=== PATIENT | female | born 1965 | race Caucasian/White ===

== ENCOUNTER 2018-05-05 16:22 | Inpatient (IN) | payer BC ==
--- NOTE | 2018-05-05 16:29 | PDOC ---
History of Present Illness - General Chief Complaint: Respiratory Stated Complaint: SENT BY PMD FOR ADMISSION DIFF BREATHING - History of Present Illness Initial Comments: 05/05/18 17:09 52 years old no significant past medical history presents emergency Department with one week history of progressively worsening dyspnea and cough No travel no sick contacts no fever no chills cough is progressively worsening from last week until this week over the weekend began to develop dyspnea with exertion. Head CT her doctor had blood work and an x-ray done EKG with no acute abnormal findings symptoms progressively worsened over the weekend and this week saw lens polisher Dr. Castorena CT chest was done which demonstrated pneumonitis Only new factor in patient's life was recent addition of tumor to her diet for anti-inflammatory relief of her arthritis. It is thought at this point that her pneumonitis secondary to an ALLERGIC reaction to the tumor arcus patient has multiple other known ALLERGIES Symptoms are moderate persistent constant exacerbated by exertion alleviated by rest. Past History - Past Medical History Allergies/Adverse Reactions: Allergies Allergy/AdvReac Type Severity Reaction Status Date / Time amoxicillin [From Augmentin] Allergy Intermediate Nausea Verified 05/05/18 16:26 clavulanic acid Allergy Intermediate Nausea Verified 05/05/18 16:26 [From Augmentin] turmeric Allergy Intermediate Difficulty Verified 05/05/18 16:25 Breathing azithromycin [From Zithromax] Allergy Mild Rash Verified 05/05/18 16:26 cefixime [From Suprax] Allergy Mild Rash Verified 05/05/18 16:27 Home Medications: Ambulatory Orders Prednisone [Deltasone] 60 mg PO DAILY 05/05/18 Sertraline HCl [Zoloft] 25 mg PO HS 05/05/18 Sertraline HCl [Zoloft] 100 mg PO HS 05/05/18 Heart Score/ECG Review - ECG Impressions Comment:: 05/05/18 18:12 EKG performed at 1642 demonstrates normal sinus rhythm no ST elevations or T- wave inversions normal axis Interpreted by me. ED Treatment Course - LABORATORY CBC & Chemistry Diagram: 05/05/18 17:07 05/05/18 17:07 Medical Decision Making - Medical Decision Making 05/05/18 18:13 Patient presents to the ED with likely ALLERGIC pneumonitis secondary to recent Tumeric use CAT scan as an outpatient demonstrated ground glass patchy opacities. Patient was placed on prednisone as an outpatient with no significant improvement and sent to the ED for admission for further evaluation blood cultures antigen testing and IV steroids Here in the emergency department placed on O2, received 40 mg IV Solu-Medrol IV fluids as well as 1 DuoNeb and subjectively reports feeling some much better however given that she was satting 88% upon arrival we will admit to medicine for further management and workup *DC/Admit/Observation/Transfer Diagnosis at time of Disposition: Pneumonitis - Discharge Dispostion Condition at time of disposition: Stable Decision to Admit order: Yes - Referrals - Patient Instructions - Post Discharge Activity
[2018-05-05] MEDS ORDERED: SODIUM CHLORIDE 0.9% 1000 ML INFUS.BAG IV ONE (16:34)
[2018-05-05] MEDS ORDERED: methylPREDNISolone NA SUCC 125 MG/2 ML VIAL IVPB ONE (16:36)
[2018-05-05] MEDS ORDERED: ALBUTEROL SO4 2.5/IPRATROPIUM 0.5 INH SOL 3 ML VIAL.NEB. NEB ONE ×2 (16:58→17:20)
[2018-05-05] MEDS ORDERED: methylPREDNISolone NA SUCC 40 MG/1 ML VIAL ONE (17:20)
[2018-05-05 17:23] LABS: HEMATOCRIT 40.4 % (32.4-45.2); HEMOGLOBIN 13.6 GM/dl (10.7-15.3); MCH 31.1 pg (25.7-33.7); MCHC 33.6 g/dl (32.0-36.0); MEAN CELL VOLUME 92.5 fl (80-96); MEAN PLT VOLUME 8.2 fl (7.5-11.1); PLATELET COUNT 339 K/MM3 (134-434); RBC 4.36 M/mm3 (3.60-5.2); RDW 12.9 % (11.6-15.6); WHITE BLOOD COUNT 10.5 K/mm3 (4.0-10.8)
[2018-05-05 17:38] LABS: ALBUMIN 2.8 g/dl (3.5-5.0); ALK PHOS 64 U/L (32-92); ANION GAP 9 MMOL/L (8-16); BILIRUBIN,TOTAL 0.6 mg/dl (0.2-1.0); BLOOD UREA NITROGEN 19 mg/dl (7-18); CALCIUM 8.5 mg/dl (8.4-10.2); CHLORIDE 103 mmol/L (98-107); CO2 21 mmol/L (22-28); CREATININE 0.7 mg/dl (0.6-1.3); GLUCOSE,RANDOM 116 mg/dl (74-106); SGOT/AST 30 U/L (10-42); SGPT/ALT 30 U/L (10-40); SODIUM 133 mmol/L (136-145); TOT PROT 7.2 g/dl (6.4-8.3)
[2018-05-05 17:39] LABS: URINE APPEARANCE Clear; URINE BILIRUBIN Negative (NEGATIVE); URINE COLOR Yellow; URINE GLUCOSE (UA) Negative (NEGATIVE); URINE KETONE Negative (NEGATIVE); URINE LEUK ESTERASE Negative (NEGATIVE); URINE NITRITE Negative (NEGATIVE); URINE PROTEIN Negative (NEGATIVE); URINE UROBILINOGEN 0.2 (0.2-1.0)
--- NOTE | 2018-05-05 17:53 | HP ---
Admitting History and Physical - Admission Chief Complaint: sob/cough History of Present Illness: 52 WHITE FEMALE WITH 2 WEEKS H/O SOB/COUGH VISITED HER PRIMARY CARE WAS EVALUATED WITH AN EKG AND BLOOD TEST AND WAS TOLD ALL WAS NORMAL. SHE SELF REFERRED TO MY OFFICE WHEN SOB AND CHEST HEAVINESS WORSENED. SHE WAS NOTED TO HAVE A SPO2 OF 93% ON ROOM AIR AND AN ABNORMAL CXR WHICH PROMPTED A CT CHEST WHICH SHOWED B/L GGO AND MID TO LOWER LOBE INFILTRATES. AN ECHO DONE AT THAT TIME WAS NORMAL. SHE WAS STARTED ON ORAL PREDNISONE AND SUSEQUENTLY DEVELOPED FEVER WHERE UPON SHE WAS ADVISED ADMISSION TO [facility] FOR FURTHER TREATMENT AND WORKUP. IT IS FELT THAT SHE HAS AN ORGANIZING PNEUMONIA LIKELY DUE TO A VIRAL ILLNES. OF NOTE IS THAT SHE STARTED TUMERIC 5 DAYS PRIOR TO THIS EPISODE A SUPPLEMENT. 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 No: COPD, O2 Dependent, Pneumonia Gastrointestinal: No: Ascites Hepatobiliary: No: Cirrhosis Renal/: No: Renal Failure Reproductive: Yes: Postmenopausal ...: No Heme/Onc: No: Anemia Infectious Disease: No: AIDS Psych: Yes: Depression. No: Addictions Musculoskeletal: No: Bursitis Rheumatology: No: Fibromyalgia - Past Surgical History Past Surgical History: Yes: None - Smoking History Smoking history: Never smoked Have you smoked in the past 12 months: No - Alcohol/Substance Use Hx Alcohol Use: Yes (SOCIAL) History of Substance Use: reports: None - Social History Usual Living Arrangement: Yes: With Spouse ADL: Independent History of Recent Travel: No Home Medications - Allergies Allergies/Adverse Reactions: Allergies Allergy/AdvReac Type Severity Reaction Status Date / Time amoxicillin [From Augmentin] Allergy Intermediate Nausea Verified 05/05/18 16:26 clavulanic acid Allergy Intermediate Nausea Verified 05/05/18 16:26 [From Augmentin] turmeric Allergy Intermediate Difficulty Verified 05/05/18 16:25 Breathing azithromycin [From Zithromax] Allergy Mild Rash Verified 05/05/18 16:26 cefixime [From Suprax] Allergy Mild Rash Verified 05/05/18 16:27 - Home Medications Home Medications: Ambulatory Orders Prednisone [Deltasone] 60 mg PO DAILY 05/05/18 Sertraline HCl [Zoloft] 25 mg PO HS 05/05/18 Sertraline HCl [Zoloft] 100 mg PO HS 05/05/18 Family Disease History - Family Disease History Family History: Unremarkable Review of Systems - Review of Systems Constitutional: reports: Chills, Fever, Lethargy, Loss of Appetite, Night Sweats , Weakness Eyes: denies: Blurred Vision HENT: denies: Difficult Swallowing Neck: denies: Decreased ROM Cardiovascular: reports: Shortness of Breath. denies: Palpitations Respiratory: reports: Cough, Exercise Intolerance, SOB, SOB on Exertion, Wheezing. denies: Hemoptysis Gastrointestinal: denies: Abdominal Pain Genitourinary: reports: No Symptoms Breasts: reports: No Symptoms Reported Musculoskeletal: reports: No Symptoms Integumentary: reports: No Symptoms Neurological: reports: No Symptoms Endocrine: reports: No Symptoms Hematology/Lymphatic: reports: No Symptoms Psychiatric: reports: No Symptoms Physical Examination Vital Signs: Vital Signs Temperature 99.8 F H 05/05/18 16:25 Pulse Rate 94 H 05/05/18 17:18 Respiratory Rate 20 05/05/18 16:25 Blood Pressure 107/63 05/05/18 16:25 O2 Sat by Pulse Oximetry (%) 99 05/05/18 17:33 Constitutional: Yes: Anxious Eyes: Yes: EOM Intact HENT: Yes: Normocephalic Neck: Yes: Trachea Midline Cardiovascular: Yes: Regular Rate and Rhythm, S1, S2 Respiratory: Yes: Rales (bibasilar) Gastrointestinal: Yes: Normal Bowel Sounds, Abdomen, Obese ...Rectal Exam: Yes: Deferred Renal/: Yes: WNL Musculoskeletal: Yes: WNL Extremities: Yes: WNL Edema: No Integumentary: Yes: WNL Neurological: Yes: Alert ...Motor Strength: WNL Psychiatric: Yes: WNL Labs: CBC, BMP 05/05/18 17:07 05/05/18 17:07 rest of labs pending Imaging - Results Chest X-ray: Report Reviewed, Image Reviewed Cat Scan: Report Reviewed, Image Reviewed Problem List - Problems (1) Pneumonitis Code(s): J18.9 - PNEUMONIA, UNSPECIFIED ORGANISM (2) Sleep apnea Code(s): G47.30 - SLEEP APNEA, UNSPECIFIED (3) Fever Code(s): R50.9 - FEVER, UNSPECIFIED (4) Hypoxemia Code(s): R09.02 - HYPOXEMIA Assessment/Plan WILL TREAT FOR PRESUMPTIVE CRYPTOGENIC ORGANIZING PNEUMONIA WITH AN UNKNOWN ETIOLOGY. STEROIDS O2 SUPPLEMENTATION NIPPV FOR OSAS (PATIENT HAS HER OWN CPAP) BRONCHODILATORS ID CONSULT. Lamar KIDD
[2018-05-05] MEDS ORDERED: ACETAMINOPHEN 325 MG TABLET (FP) PO PRN (18:09)
[2018-05-05] MEDS ORDERED: methylPREDNISolone NA SUCC 40 MG/1 ML VIAL IVPUSH SCH (18:15)
[2018-05-05 18:42] VITALS: BMI 36.8
[2018-05-05] MEDS: PANTOPRAZOLE 40 MG TABLET (FP) PO SCH (18:42)
[2018-05-05 18:52] LABS: PLATELET ESTIMATE ADEQUATE
[2018-05-05] MEDS: methylPREDNISolone NA SUCC 40 MG/1 ML VIAL IVPUSH SCH (19:24)
[2018-05-05] MEDS: ALBUTEROL SO4 0.083% IH SOL 2.5 MG/3 ML VIAL.NEB. NEB SCH (20:01)
[2018-05-06] MEDS: methylPREDNISolone NA SUCC 40 MG/1 ML VIAL IVPUSH SCH ×4 (02:25→20:53)
[2018-05-06] MEDS: ALBUTEROL SO4 0.083% IH SOL 2.5 MG/3 ML VIAL.NEB. NEB SCH ×4 (08:00→20:53)
--- NOTE | 2018-05-06 09:09 | PN ---
Progress Note (short form) - Note Progress Note: PULMONARY VSS/DIAPHORETIC OVER NIGHT ANICTERIC BIBASILAR INSP CRACKLE R>L S1S2 BS+ NO EDEMA LABS/MEDS/NOTES/IMAGES/MICRO(PENDING) REVIEWED IMP CRYPTOGENIC ORGANIZING PNEUMONITIS (FORMERLY BOOP) MOST LIKELY ETIOLOGY ? OSAS ON NIVPPV BRONCHIAL ASTHMA PLAN: CONTINUE IV STEROIDS SAME DOSE GI PROPHYLAXSIS NIPPV HS O2 SUPPLEMENTATION/BRONCHODILATORS PT IS AMBULATORY/ CHECK MICRO PENDING ID EVAL FOR SECOND OPINION WILL HAVE REPEAT IMAGING STUDY PRIOR TO DISCHARGE Lamar ASHLEY MD Problem List - Problems (1) Pneumonitis Code(s): J18.9 - PNEUMONIA, UNSPECIFIED ORGANISM (2) Sleep apnea Code(s): G47.30 - SLEEP APNEA, UNSPECIFIED (3) Fever Code(s): R50.9 - FEVER, UNSPECIFIED (4) Hypoxemia Code(s): R09.02 - HYPOXEMIA
--- NOTE | 2018-05-06 10:05 | PN ---
Progress Note (short form) - Note Progress Note: ID Consult dictated Community acq V. atypical pneumonia ? Viral pneumonitis ? Hypersensitivity pneumonitis Await c/s, legionella ag Empiric levaquin
--- NOTE | 2018-05-06 10:19 | EKG ---
Test Reason : Blood Pressure : / mmHG Vent. Rate : 089 BPM Atrial Rate : 089 BPM P-R Int : 116 ms QRS Dur : 080 ms QT Int : 372 ms P-R-T Axes : 051 074 068 degrees QTc Int : 452 ms NORMAL SINUS RHYTHM NORMAL ECG NO PREVIOUS ECGS AVAILABLE Confirmed by LORENA MILLER MD ([id number]) on 05/06/2018 10:18:37 AM Referred By: DR VANG Confirmed By:LORENA MILLER MD
[2018-05-06] MEDS: PANTOPRAZOLE 40 MG TABLET (FP) PO SCH (10:26)
[2018-05-06] MEDS ORDERED: PT OWN MED DRAWER 7, Y5N ONE (10:57)
--- NOTE | 2018-05-06 14:44 | CONS ---
DATE OF CONSULTATION: DATE OF DICTATION: 05/06/2018 HISTORY OF PRESENT ILLNESS: The patient is a 52-year-old previously healthy evaluated for pneumonitis. The patient was well until approximately 5 or 6 days ago. She had been taking turmeric for arthritis symptoms. She reports that 5 days into the course of turmeric, she developed shortness of breath and dry cough. She had consulted a disk operator and was prescribed prednisone. She has been taking prednisone 60 mg for the past 3 days. Despite the prednisone, she continued to have increasing shortness of breath, cough, and chest pressure. She developed subjective fever and was advised to go to the emergency room. In the emergency room, patient was afebrile with a normal white blood cell count. A CT scan was performed and showed diffuse patchy consolidation throughout both lung martinez. Patient complaints of dyspnea and cough. However, she reports improvement on inhaled bronchodilators and intravenous corticosteroids. She lives at home in the community with her significant other. She denies ill contacts. No recent hospitalizations. No recent travel. She was in [place] several months ago. Patient is a nonsmoker. She has pet dogs at home. She did receive influenza vaccine. PAST MEDICAL HISTORY: Noncontributory. ALLERGIES: To multiple medications including AUGMENTIN, TURMERIC, ZITHROMAX, CEFIXIME. SOCIAL HISTORY: As per HPI. SYSTEMS REVIEW: Neurologic: No loss of consciousness, seizure activity, or focal weakness. Cardiac: Negative for chest pain or palpitations. Respiratory: As per HPI. Gastrointestinal: Negative for vomiting or diarrhea. Genitourinary: Negative for urinary tract infection. LABORATORY DATA: White count 10.5, 85 neutrophils, 1 band, 11 lymphocytes, 3 monocytes, hematocrit 40.4, platelets 339. BUN 19, creatinine 0.7. Liver enzymes normal. Influenza swab negative. PHYSICAL EXAMINATION: General: She is awake and alert. She is seated in bed, an obese female. She is not acutely dyspneic at rest. Vital signs: Temperature 98.4, blood pressure 106/54, pulse 77 and regular, respirations 18 per minute. HEENT: Sclerae anicteric. Oropharynx negative. Neck: Supple. Heart: Heart sounds S1, S2. No murmur. Lungs: Crepitations at the bases bilaterally. Abdomen: Obese, soft, nontender. Extremities: Negative for edema. IMPRESSION: 1. Bilateral pneumonitis, rule out community-acquired versus atypical pneumonia. 2. Possible viral pneumonitis. 3. Possible hypersensitivity pneumonitis. Await cultures, obtain urine, legionella, and pneumococcal antigens, HIV testing, empiric antibiotic coverage, community-acquired and atypical lung pathogens with Levaquin 750 mg IV piggyback daily. Continue inhaled bronchodilators and intravenous corticosteroids. Will follow. Thank you for the kind referral. LORENA AREVALO M.D. [id number]
[2018-05-07] MEDS: methylPREDNISolone NA SUCC 40 MG/1 ML VIAL IVPUSH SCH ×4 (03:25→21:10)
[2018-05-07] MEDS: ALBUTEROL SO4 0.083% IH SOL 2.5 MG/3 ML VIAL.NEB. NEB SCH ×4 (08:05→21:10)
[2018-05-07] MEDS: PANTOPRAZOLE 40 MG TABLET (FP) PO SCH (09:28)
--- NOTE | 2018-05-07 14:46 | PN ---
Progress Note (short form) - Note Progress Note: PULMONARY VSS/SUBJECTIVE IMPROVEMENT ANICTERIC BIBASILAR INSP CRACKLE R>L IMPROVED S1S2 BS+ NO EDEMA LABS/MEDS/NOTES/IMAGES/RSV(PENDING) REVIEWED IMP CRYPTOGENIC ORGANIZING PNEUMONITIS (FORMERLY BOOP) MOST LIKELY, ETIOLOGY ? OSAS ON NIVPPV BRONCHIAL ASTHMA PLAN: CONTINUE IV STEROIDS SAME DOSE GI PROPHYLAXSIS NIPPV HS O2 SUPPLEMENTATION/BRONCHODILATORS PT IS AMBULATORY/ CHECK MICRO PENDING ID EVAL FOR SECOND OPINION APPRECIATED WILL HAVE REPEAT IMAGING STUDY PRIOR TO DISCHARGE Lamar ASHLEY MD Problem List - Problems (1) Pneumonitis Code(s): J18.9 - PNEUMONIA, UNSPECIFIED ORGANISM (2) Sleep apnea Code(s): G47.30 - SLEEP APNEA, UNSPECIFIED (3) Fever Code(s): R50.9 - FEVER, UNSPECIFIED (4) Hypoxemia Code(s): R09.02 - HYPOXEMIA
[2018-05-08] MEDS: methylPREDNISolone NA SUCC 40 MG/1 ML VIAL IVPUSH SCH ×4 (02:44→20:57)
[2018-05-08] MEDS: ALBUTEROL SO4 0.083% IH SOL 2.5 MG/3 ML VIAL.NEB. NEB SCH ×4 (07:55→20:57)
[2018-05-08] MEDS: PANTOPRAZOLE 40 MG TABLET (FP) PO SCH (09:52)
--- NOTE | 2018-05-08 11:37 | PN ---
Progress Note (short form) - Note Progress Note: PULMONARY VSS/CONTINUES TO IMPROVE ANICTERIC BIBASILAR INSP CRACKLE R>L IMPROVED S1S2 BS+ NO EDEMA LABS/MEDS/NOTES/IMAGES/RSV(PENDING) REVIEWED IMP CRYPTOGENIC ORGANIZING PNEUMONITIS (FORMERLY BOOP) MOST LIKELY, ETIOLOGY ? OSAS ON NIVPPV BRONCHIAL ASTHMA PLAN: CONTINUE IV STEROIDS SAME DOSE GI PROPHYLAXSIS NIPPV HS O2 SUPPLEMENTATION/BRONCHODILATORS PT IS AMBULATORY/ RSV PENDING ID EVAL FOR SECOND OPINION APPRECIATED WILL HAVE REPEAT IMAGING STUDY IN AM CHECK SPO2 R/A PRE/POST R DION REDDY Problem List - Problems (1) Pneumonitis Code(s): J18.9 - PNEUMONIA, UNSPECIFIED ORGANISM (2) Sleep apnea Code(s): G47.30 - SLEEP APNEA, UNSPECIFIED (3) Fever Code(s): R50.9 - FEVER, UNSPECIFIED (4) Hypoxemia Code(s): R09.02 - HYPOXEMIA
[2018-05-09] MEDS: methylPREDNISolone NA SUCC 40 MG/1 ML VIAL IVPUSH SCH ×3 (03:15→14:15)
[2018-05-09] MEDS: ALBUTEROL SO4 0.083% IH SOL 2.5 MG/3 ML VIAL.NEB. NEB SCH ×2 (08:36→13:00)
--- NOTE | 2018-05-09 08:54 | PN ---
Progress Note, Physician History of Present Illness: Awake, alert Seated in bed Clinically improved Less dyspneic Occasional cough , whitish sputum No c/o chest pain No fever/ chills - Current Medication List Current Medications: Active Medications Acetaminophen (Tylenol -) 650 mg PO ONCE PRN PRN Reason: FEVER Albuterol Sulfate (Ventolin 0.083% Nebulizer Soln -) 1 amp NEB RQID KATERIN Last Admin: 05/09/18 08:36 Dose: 1 amp Levofloxacin (Levaquin 750 Mg Premixed Ivpb -) 750 mg in 150 mls @ 100 mls/hr IVPB DAILY KATERIN; Protocol Last Admin: 05/08/18 09:52 Dose: 100 mls/hr Methylprednisolone Sodium Succinate (Solu-Medrol -) 40 mg IVPUSH Q6H-IV KATERIN Last Admin: 05/09/18 08:36 Dose: 40 mg Pantoprazole Sodium (Protonix -) 40 mg PO DAILY KATERIN Last Admin: 05/08/18 09:52 Dose: 40 mg - Objective Vital Signs: Vital Signs Temperature 98.3 F 05/09/18 06:08 Pulse Rate 95 H 05/09/18 06:08 Respiratory Rate 18 05/09/18 06:08 Blood Pressure 114/59 L 05/09/18 06:08 O2 Sat by Pulse Oximetry (%) 92 L 05/08/18 22:00 Constitutional: Yes: No Distress Eyes: Yes: Conjunctiva Clear Cardiovascular: Yes: Regular Rate and Rhythm, S1, S2 Respiratory: Yes: CTA Bilaterally Gastrointestinal: Yes: Normal Bowel Sounds, Soft, Abdomen, Obese. No: Tenderness Edema: No Labs: CBC, BMP 05/05/18 17:07 05/05/18 17:07 Assessment/Plan Probable viral pneumonitis Clinically improved C/S, legionella/ pneumococcal ag (-) Viral panel pending Switch to po levaquin x 7d Outpatient followup
[2018-05-09] MEDS: PANTOPRAZOLE 40 MG TABLET (FP) PO SCH (09:38)
--- NOTE | 2018-05-09 13:20 | DS ---
Physical Examination Vital Signs: Vital Signs Temperature 97.8 F 05/09/18 09:05 Pulse Rate 97 H 05/09/18 09:05 Respiratory Rate 18 05/09/18 09:05 Blood Pressure 117/55 L 05/09/18 09:05 O2 Sat by Pulse Oximetry (%) 98 05/09/18 12:35 Constitutional: Yes: Calm Eyes: Yes: EOM Intact HENT: Yes: Normocephalic Neck: Yes: Trachea Midline Cardiovascular: Yes: Regular Rate and Rhythm Respiratory: Yes: Rales (right base) Gastrointestinal: Yes: Normal Bowel Sounds ...Rectal Exam: Yes: Deferred Renal/: Yes: WNL Musculoskeletal: Yes: WNL Extremities: Yes: WNL Edema: No Labs: CBC, BMP 05/05/18 17:07 05/05/18 17:07 Discharge Summary Reason For Visit: PNEUMONITIS Current Active Problems Fever (Acute) Hypoxemia (Acute) Pneumonitis (Acute) Sleep apnea (Acute) Condition: Stable - Instructions Disposition: HOME - Home Medications Comprehensive Discharge Medication List: Ambulatory Orders Prednisone [Deltasone] 40 mg PO DAILY 05/05/18 Sertraline HCl [Zoloft] 25 mg PO HS 05/05/18 Sertraline HCl [Zoloft] 100 mg PO HS 05/05/18 nexium 40mg daily levaquin 500mg for 6 days
--- NOTE | 2018-05-09 13:22 | PN ---
Progress Note (short form) - Note Progress Note: PULMONARY VSS/CONTINUES TO IMPROVE ANICTERIC BIBASILAR INSP CRACKLE R>L IMPROVED S1S2 BS+ NO EDEMA LABS/MEDS/NOTES/IMAGES/RSV(PENDING) REVIEWED sp02 92%room air 88% with ambulation IMP CRYPTOGENIC ORGANIZING PNEUMONITIS (FORMERLY BOOP) MOST LIKELY, ETIOLOGY ? OSAS ON NIVPPV BRONCHIAL ASTHMA PLAN: CONTINUE STEROIDS GI PROPHYLAXSIS NIPPV HS O2 SUPPLEMENTATION/BRONCHODILATORS PT IS AMBULATORY/ RSV QNS ID EVAL FOR SECOND OPINION APPRECIATED REPEAT CT CHEST MODEST IMPROVEMENT NEEDS SHORT TERM HOME O2 R DION REDDY Problem List - Problems (1) Pneumonitis Code(s): J18.9 - PNEUMONIA, UNSPECIFIED ORGANISM (2) Sleep apnea Code(s): G47.30 - SLEEP APNEA, UNSPECIFIED (3) Fever Code(s): R50.9 - FEVER, UNSPECIFIED (4) Hypoxemia Code(s): R09.02 - HYPOXEMIA
[2018-05-09 15:19] VITALS: BP 122/59; PULSE 90; TEMP 98.2
== END 2018-05-09 16:37 | disposition home or self-care (01) | DRG 195 ==
LOC: FER 16:22 → FM/S 18:11
PROVIDERS: ADMIT Specialist; ATTEND Specialist
PROC: 3E0F7GC Introduction of Other Therapeutic Substance into Respiratory Tract, Via Natural or Artificial Opening (ICD-10-PCS; principal; 2018-05-05)
DX: J18.9 Pneumonia, unspecified organism (principal); T50.995A Adverse effect of other drugs, medicaments and biological substances, initial encounter; R09.02 Hypoxemia; E66.9 Obesity, unspecified; Z68.36 Body mass index [BMI] 36.0-36.9, adult; G47.33 Obstructive sleep apnea (adult) (pediatric); J45.909 Unspecified asthma, uncomplicated
CPT/HCPCS: 36415; 71250-TC; 80053; 81003; 84484; 85025; 87040; 87086; 87633; 87899; 93005; 94640; 99283-25; J7030

== ENCOUNTER 2018-05-13 11:11 | Inpatient (IN) | payer BC ==
--- NOTE | 2018-05-13 11:49 | PDOC ---
History of Present Illness - General History Source: Patient Exam Limitations: No Limitations - History of Present Illness Initial Comments: 05/13/18 13:00 The patient is a 52 year old female, with a significant past medical history of sleep apnea (c-pap at night), who presents to the emergency department with, shortness of breath and pneumonia. The patient was at her infusion rn today when she was found to be hypoxic. Patient endorses for she was recently admitted to [facility] 05/05 for similar symptoms. As per Dr. 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 The patient notes the only changes in her lifestyle was the implementation of turmeric and she has not been cleaning her c-pap enough thus, an unknown residue. Patient endorses at home when she is off oxygen she is hypoxic to the 70s. She denies recent fevers, chills, headache or dizziness. She denies recent nausea, vomit, diarrhea or constipation. She denies recent dysuria, frequency, urgency or hematuria. She denies recent chest pain. Social history: Social alcohol. Nonsmoker. Denies recreational drug use. Reservations Agent: Dr. Alonso <Gatito Valero - Last Filed: 05/13/18 13:00> <Amilcar Houston - Last Filed: 05/13/18 15:02> - General Chief Complaint: SIRS, Suspected/Possible Stated Complaint: PCP SENT Time Seen by Provider: 05/13/18 11:48 Past History <Gatito Valero - Last Filed: 05/13/18 13:00> - Past Medical History COPD: No Psychiatric Problems: Yes (anxiety) Other medical history: current pnemonitis - Surgical History Cholecystectomy: Yes - Immunization History Immunization Up to Date: Yes - Suicide/Smoking/Psychosocial Hx Smoking History: Never smoked Have you smoked in the past 12 months: No Hx Alcohol Use: No Drug/Substance Use Hx: No Substance Use Type: None <Amilcar Houston - Last Filed: 05/13/18 15:02> - Past Medical History Allergies/Adverse Reactions: Allergies Allergy/AdvReac Type Severity Reaction Status Date / Time amoxicillin [From Augmentin] Allergy Intermediate Nausea Verified 05/13/18 11:25 clavulanic acid Allergy Intermediate Nausea Verified 05/13/18 11:25 [From Augmentin] turmeric Allergy Intermediate Difficulty Verified 05/13/18 11:25 Breathing azithromycin [From Zithromax] Allergy Mild Rash Verified 05/13/18 11:25 cefixime [From Suprax] Allergy Mild Rash Verified 05/13/18 11:25 Home Medications: Ambulatory Orders Prednisone [Deltasone] 60 mg PO DAILY 05/05/18 Sertraline HCl [Zoloft] 25 mg PO HS 05/05/18 Sertraline HCl [Zoloft] 100 mg PO HS 05/05/18 Review of Systems - Review of Systems Able to Perform ROS?: Yes Comments:: 05/13/18 13:01 CONSTITUTIONAL: No reported: Fever, Chills, Diaphoresis, Malaise, Loss of Appetite HEENT: No reported: Rhinorrhea, Nasal Congestion, Throat Pain, Throat Swelling, Difficulty Swallowing, Mouth Swelling, Ear Pain, Eye Pain, Visual Changes CARDIOVASCULAR: No reported: Chest Pain, Syncope, Palpitations, Irregular Heart Rate, Lightheadedness, Peripheral Edema RESPIRATORY: Present: Cough, Shortness of Breath, SOB with Exertion, hypoxia No reported: Orthopnea, Wheezing, Stridor, Hemoptysis GASTROINTESTINAL: No reported: Abdominal pain, Abdominal Distension, Nausea, Vomiting, Diarrhea, Constipation, Melena, Hematochezia GENITOURINARY: No reported: Dysuria, Frequency, Urgency, Hesitancy, Flank Pain, Genital Pain MUSCULOSKELETAL: No reported: Myalgia, Arthralgia, Joint Swelling, Back pain, Neck Pain SKIN: No reported: Rash, Itching, Pallor HEMEATOLOGIC/IMMUNOLOGIC: No reported: Easy Bleeding, Easy Bruising, Lymphadenopathy, Frequent infections ENDOCRINE: No reported: Unexplained Weight Gain, Unexplained Weight Loss, Heat Intolerance , Cold Intolerance NEUROLOGIC: No reported: Headache, Focal Weakness, Paresthesias, Vertigo, Lightheadedness, Unsteady Gait, Seizure, Mental Status Changes, Incontinence PSYCHIATRIC: No reported: Anxiety, Depression <Gatito Valero - Last Filed: 05/13/18 13:00> *Physical Exam - Vital Signs Last Vital Signs Temp Pulse Resp BP Pulse Ox 99.1 F 90 20 108/68 9 L 05/13/18 11:25 05/13/18 12:52 05/13/18 12:52 05/13/18 12:52 05/13/18 12:52 <Gatito Valero - Last Filed: 05/13/18 13:00> - Vital Signs Last Vital Signs Temp Pulse Resp BP Pulse Ox 99.1 F 109 H 26 H 82/49 L 88 L 05/13/18 11:25 05/13/18 11:25 05/13/18 11:25 05/13/18 11:25 05/13/18 11:25 - Physical Exam Comments: 05/13/18 12:55 GENERAL: The patient is awake, alert, and fully oriented, Nontoxic - in no acute distress. HEAD: Normocephalic, atraumatic. EYES: extraocular movements intact, sclera anicteric, conjunctiva clear. ENT: Normal voice, Moist mucous membranes. NECK: Normal range of motion, supple LUNGS: Breath sounds equal, clear to auscultation bilaterally. No wheezes, no rhonchi, no rales. HEART: Regular rate and rhythm, normal S1 and S2 without murmur, rub or gallop. ABDOMEN: Soft, nontender, normoactive bowel sounds. No guarding, no rebound. . No CVA tenderness EXTREMITIES: Normal range of motion, no edema. NEUROLOGICAL: No facial assymetry, Normal speech, PSYCH: Normal mood, normal affect. SKIN: Warm, Dry, normal turgor, <Celso,Amilcar - Last Filed: 05/13/18 15:02> Moderate Sedation - Procedure Monitoring Vital Signs: Procedure Monitoring Vital Signs Temperature 99.1 F 05/13/18 11:25 Pulse Rate 90 05/13/18 12:52 Respiratory Rate 20 05/13/18 12:52 Blood Pressure 108/68 05/13/18 12:52 O2 Sat by Pulse Oximetry (%) 9 L 05/13/18 12:52 <Gatito Valero - Last Filed: 05/13/18 13:00> - Procedure Monitoring Vital Signs: Procedure Monitoring Vital Signs Temperature 99.1 F 05/13/18 11:25 Pulse Rate 109 H 05/13/18 11:25 Respiratory Rate 26 H 05/13/18 11:25 Blood Pressure 82/49 L 05/13/18 11:25 O2 Sat by Pulse Oximetry (%) 88 L 05/13/18 11:25 <CelsoAmilcar - Last Filed: 05/13/18 15:02> Heart Score/ECG Review - ECG Impressions Comment:: 05/13/18 12:58 Twelve-lead EKG was performed and reviewed by me. There is normal sinus rhythm with a normal rate. Rate of 92 The axis is normal. The intervals are normal. There is normal R wave progression There are no ST or T wave abnormalities. <Amilcar Houston - Last Filed: 05/13/18 15:02> ED Treatment Course - LABORATORY CBC & Chemistry Diagram: 05/13/18 11:51 05/13/18 11:51 - ADDITIONAL ORDERS Additional order review: Laboratory Results 05/13/18 05/13/18 05/13/18 11:51 11:51 11:51 PT with INR 13.00 INR 1.10 H VBG pH 7.43 H POC VBG pCO2 38.3 POC VBG pO2 53.2 H Mixed VBG HCO3 24.8 Sodium 140 Potassium 4.1 Chloride 104 Carbon Dioxide 24 Anion Gap 11 BUN 24 H Creatinine 0.8 Creat Clearance w eGFR > 60 Random Glucose 106 Calcium 8.3 L Total Bilirubin 0.6 AST 20 ALT 38 Alkaline Phosphatase 69 Creatine Kinase 75 Troponin I < 0.02 B-Natriuretic Peptide 174.0 H Total Protein 6.2 L Albumin 2.6 L 05/13/18 11:51 RBC 4.73 MCV 91.3 MCHC 32.7 RDW 14.6 MPV 8.0 Neutrophils % 88.3 H Lymphocytes % 4.6 L Monocytes % 5.8 Eosinophils % 1.2 Basophils % 0.1 - Medications Given in the ED: ED Medications Discontinued Medications Generic Name Dose Route Start Last Admin Trade Name Freq PRN Reason Stop Dose Admin Sodium Chloride 1,000 mls @ 1,000 mls/hr 05/13/18 11:50 05/13/18 12:06 Normal Saline - IV 05/13/18 12:49 1,000 mls/hr ASDIR STA Administration <Gatito Valero - Last Filed: 05/13/18 13:00> - LABORATORY CBC & Chemistry Diagram: 05/13/18 11:51 05/13/18 11:51 <Amilcar Houston - Last Filed: 05/13/18 15:02> Medical Decision Making - Medical Decision Making 05/13/18 12:55 52y F no pmhx presents with complaint of sob - recent admission for sob, with working dx of cryptogenic pneumonitis. pt hsa been feeling more SOB, with incrased o2 requirement, was noted slightly tachy and borderline hypotensive at PMDs office so sent to the ED for elvaution. no new acute complaints inluding fever/chills, cough, leg sweling, hemoptysis, chest pain. discussed with dr. jamie adair admissino for furthe rmangement of her pneumonitis shahnaz lobtain basic labs 05/13/18 13:36 The patient's blood work was reviewed, leukocytosis were noticed 16 at suspect this is due to the patient being on steroids The patient's chest x-ray was reviewed Will discuss with primary care regarding admission She blood pressure has improved with a liter of normal saline current blood pressure 108/88. No signs of symptomatic hypotension 05/13/18 13:53 benoit mccauley agre with admsision [facility] bp stable Case discussed in detail with admitting physician including history, physical exam and ancillary studies. Admitting physician has assumed care for the patient, will follow all pending diagnostics and will complete the evaluation and treatment. 05/13/18 15:[address] ly urbina ICU d/w dr. mccauley and agrees <Amilcar Houston - Last Filed: 05/13/18 15:02> *DC/Admit/Observation/Transfer - Attestations Scribe Attestion: 05/13/18 13:01 Documentation prepared by Gatito Valero, acting as rn medical inpatient services for Amilcar Houston MD. <Gatito Valero - Last Filed: 05/13/18 13:00> - Discharge Dispostion Decision to Admit order: Yes <Amilcar Houston - Last Filed: 05/13/18 15:02> Diagnosis at time of Disposition: Pneumonitis - Discharge Dispostion Condition at time of disposition: Guarded - Referrals Referrals: Richard Alonso MD [Primary Care Provider] -
[2018-05-13] MEDS ORDERED: SODIUM CHLORIDE 1,000 ML IV STA (11:50)
[2018-05-13 12:23] LABS: VENOUS PC02 38.3 mmHg (38-52); VENOUS PH 7.43 (7.32-7.42); VENOUS PO2 53.2 mmHg (28-48)
[2018-05-13 12:36] LABS: BASO % 0.1 % (0-2.0); EOS % 1.2 % (0-4.5); HEMATOCRIT 43.2 % (32.4-45.2); HEMOGLOBIN 14.1 GM/dL (10.7-15.3); LYMPH % 4.6 % (8-40); MCH 29.8 pg (25.7-33.7); MCHC 32.7 g/dl (32.0-36.0); MEAN CELL VOLUME 91.3 fl (80-96); MONO % 5.8 % (3.8-10.2); NEUT % 88.3 % (42.8-82.8); PLATELET COUNT 259 K/MM3 (134-434); RBC 4.73 M/mm3 (3.60-5.2); RDW 14.6 % (11.6-15.6)
[2018-05-13 12:49] LABS: INR 1.1 (0.83-1.09)
[2018-05-13 12:56] LABS: ALBUMIN 2.6 g/dl (3.4-5.0); ALK PHOS 69 U/L (45-117); ANION GAP 11 MMOL/L (8-16); BILIRUBIN,TOTAL 0.6 mg/dL (0.2-1); BLOOD UREA NITROGEN 24 mg/dL (7-18); CALCIUM 8.3 mg/dL (8.5-10.1); CHLORIDE 104 mmol/L (98-107); CO2 24 mmol/L (21-32); CREATININE 0.8 mg/dL (0.55-1.3); GLUCOSE,RANDOM 106 mg/dL (74-106); POTASSIUM 4.1 mmol/L (3.5-5.1); SGOT/AST 20 U/L (15-37); SGPT/ALT 38 U/L (13-61); SODIUM 140 mmol/L (136-145); TOT PROT 6.2 g/dl (6.4-8.2)
[2018-05-13 16:23] LABS: ANISOCYTOSIS 0; MACROCYTOSIS 0; PLATELET ESTIMATE NORMAL
[2018-05-13] MEDS ORDERED: SODIUM CHLORIDE 1,000 ML IV SCH (16:45)
--- NOTE | 2018-05-13 16:56 | CONSULT ---
Consultation: REQUESTING PROVIDER: CONSULT REQUEST: We have been asked to medically evaluate this patient for ICU for acute hypoxic respiratory failure HISTORY OF PRESENT ILLNESS: 52 yo F, PMH sleep apnea (c-pap at night), p/w with, SOB and pneumonia?. 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 Patient endorses she was recently admitted to [facility] 05/05 for similar symptoms. Pt says she has been compliant w/ her abx (2 days more of levaquin) and steroids. As per Dr. 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 The patient notes the only changes in her lifestyle was the implementation of turmeric and she has not been cleaning her c-pap enough thus, an unknown residue. Patient endorses at home when she is off oxygen she is hypoxic to the 70s, even when walking only a few feet, but denies CP. Per pt, at the office she was hypoxic to 80s and was found to be hypotensive to around 80s/50s. She denies recent fevers, chills, headache or dizziness. She denies recent n/v/ d. She denies recent dysuria, frequency, urgency or hematuria. She denies recent chest pain, travel, hx of clots. In the ED she was tachy and hypotensive 82/49. Received 1 L NS and hypotension improved to 108/88. Labs were mostly unremarkable. WBC of 16. EKG in ED NSR w/ no ST ischemic changes, trop neg x1 Social history: Social alcohol. Nonsmoker. Denies recreational drug use. FH: daughter asthma, brother RA Respiratory Medicine Physician: Dr. Alonso REVIEW OF SYSTEMS: as per HPI PHYSICAL EXAMINATION Vital Signs - 24 hr 05/13/18 05/13/18 05/13/18 11:25 11:49 12:15 Temperature 99.1 F Pulse Rate 109 H Pulse Rate [ Right Radial] Respiratory 26 H Rate Blood Pressure 82/49 L Blood Pressure [Right Arm] O2 Sat by Pulse 88 L 95 94 L Oximetry (%) 05/13/18 05/13/18 05/13/18 12:52 13:54 15:19 Temperature Pulse Rate Pulse Rate [ 90 94 H Right Radial] Respiratory 20 20 Rate Blood Pressure Blood Pressure 108/68 105/62 [Right Arm] O2 Sat by Pulse 9 L 95 Oximetry (%) GENERAL: AOX3 NAD on NC, talking comfortably HEENT: NCAT sclera anicteric, conjunctiva clear. No lid lag. Moist mucous membranes. NECK: Normal range of motion, supple without lymphadenopathy, JVD, or masses. LUNGS: crackles bl HEART: RRR, normal S1 and S2 without murmur, rub or gallop. ABDOMEN: Soft, NTND, normoactive bowel sounds, no guarding, no rebound, no masses. MUSCULOSKELETAL: Normal range of motion at all joints. No bony deformities or tenderness. No CVA tenderness. UPPER EXTREMITIES: 2+ pulses, warm, well-perfused. No cyanosis. No clubbing. Cap refill <2 seconds. No peripheral edema. LOWER EXTREMITIES: 2+ pulses, warm, well-perfused. No calf tenderness. No peripheral edema. NEUROLOGICAL: Cranial nerves II-XII intact. Normal speech. PSYCHIATRIC: Cooperative. Good eye contact. Appropriate mood and affect. SKIN: Warm, dry, normal turgor, no rashes or lesions noted. Laboratory Results - last 24 hr 05/13/18 05/13/18 05/13/18 11:50 11:51 11:51 WBC 16.0 H RBC 4.73 Hgb 14.1 Hct 43.2 MCV 91.3 MCH 29.8 MCHC 32.7 RDW 14.6 Plt Count 259 MPV 8.0 Absolute Neuts (auto) 14.1 H Neutrophils % 88.3 H Lymphocytes % 4.6 L Monocytes % 5.8 Eosinophils % 1.2 Basophils % 0.1 Nucleated RBC % 0 PT with INR INR VBG pH POC VBG pCO2 POC VBG pO2 Mixed VBG HCO3 Sodium 140 Potassium 4.1 Chloride 104 Carbon Dioxide 24 Anion Gap 11 BUN 24 H Creatinine 0.8 Creat Clearance w eGFR > 60 Random Glucose 106 Calcium 8.3 L Total Bilirubin 0.6 AST 20 ALT 38 Alkaline Phosphatase 69 Creatine Kinase 75 Troponin I < 0.02 B-Natriuretic Peptide 174.0 H Total Protein 6.2 L Albumin 2.6 L Blood Type O POSITIVE Antibody Screen Negative 05/13/18 05/13/18 11:51 11:51 WBC RBC Hgb Hct MCV MCH MCHC RDW Plt Count MPV Absolute Neuts (auto) Neutrophils % Lymphocytes % Monocytes % Eosinophils % Basophils % Nucleated RBC % PT with INR 13.00 INR 1.10 H VBG pH 7.43 H POC VBG pCO2 38.3 POC VBG pO2 53.2 H Mixed VBG HCO3 24.8 Sodium Potassium Chloride Carbon Dioxide Anion Gap BUN Creatinine Creat Clearance w eGFR Random Glucose Calcium Total Bilirubin AST ALT Alkaline Phosphatase Creatine Kinase Troponin I B-Natriuretic Peptide Total Protein Albumin Blood Type Antibody Screen Active Medications Generic Name Dose Route Start Last Admin Trade Name Freq PRN Reason Stop Dose Admin Albuterol Sulfate 1 amp 05/13/18 15:58 Ventolin 0.083% Nebulizer Soln - NEB Q6H PRN SHORT OF BREATH/WHEEZING Albuterol/Ipratropium 1 amp 05/13/18 16:00 Duoneb - NEB Q4H KATERIN Chlorhexidine Gluconate 1 applic 05/13/18 22:00 Hibiclens For Decolonization - TP HS KATERIN Heparin Sodium (Porcine) 5,000 unit 05/13/18 18:00 Heparin - SQ Q8H-IV KATERIN Methylprednisolone Sodium Succinate 60 mg 05/13/18 16:00 Solu-Medrol - IVPUSH Q8H-IV KATERIN Mupirocin 1 applic 05/13/18 22:00 Bactroban Ointment (For Decolonization) - NS 05/18/18 21:59 BID KATERIN ASSESSMENT/PLAN: 52 yo F, PMH sleep apnea (c-pap at night), cryptogenic pneumonia?, p/w with, acute hypoxic respiratory failure 2/2 possible sepsis 2/2 pneumonia vs ILD Problems: sleep apnea (c-pap at night) acute hypoxic respiratory failure r/o sepsis pneumonitis? ILD? leukocytosis - sepsis vs current steroid use s/p 1 L NS in ED O2 as needed maintain sat >90% c-pap at court recording monitor H/H solumedrol 60q8h bronchodilators Maintain MAP >65 cardiac monitoring echo 05/03/18 - nl CT 05/09/18 - ILD CXR- increased lung markings in lower lobes. no obvious consolidations. Poor insip effort/quality rpt CXR am rpt EKG, trop, r/o cardiac component EKG in ED NSR w/ no ST ischemic changes, trop neg x1 bcx, ucx, sputum cx, legionella, flu ID consult consider abx FEN NS 100cc replete prn regular diet ppx SQH protonix Dispo: ICU monitoring We will continue to follow the patient. Thank you for this consultative opportunity. Visit type - Emergency Visit Emergency Visit: Yes ED Registration Date: 05/13/18 Care time: The patient presented to the Emergency Department on the above date and was hospitalized for further evaluation of their emergent condition. - New Patient This patient is new to me today: Yes Date on this admission: 05/13/18 - Critical Care Critical Care patient: Yes Total Critical Care Time (in minutes): 38 Critical Care Statement: The care of this patient involved high complexity decision making to prevent further life threatening deterioration of the patient 's condition and/or to evaluate & treat vital organ system(s) failure or risk of failure.
[2018-05-13] MEDS ORDERED: ALBUTEROL SO4 2.5/IPRATROPIUM 0.5 INH SOL 3 ML VIAL.NEB. NEB ONE (17:07)
[2018-05-13] MEDS ORDERED: PANTOPRAZOLE SODIUM 40 MG/100 ML BAG IVPB ONE (17:07)
[2018-05-13] MEDS ORDERED: methylPREDNISolone NA SUCC 40 MG/1 ML VIAL ONE (17:08)
[2018-05-13] MEDS: ALBUTEROL SO4 2.5/IPRATROPIUM 0.5 INH SOL 3 ML VIAL.NEB. NEB SCH ×2 (17:16→20:50)
[2018-05-13] MEDS: methylPREDNISolone NA SUCC 40 MG/1 ML VIAL IVPUSH SCH ×2 (17:16→19:02)
[2018-05-13] MEDS: PANTOPRAZOLE 40 MG TABLET (FP) PO SCH (17:16)
--- NOTE | 2018-05-13 19:00 | EKG ---
Test Reason : Blood Pressure : / mmHG Vent. Rate : 092 BPM Atrial Rate : 092 BPM P-R Int : 114 ms QRS Dur : 080 ms QT Int : 364 ms P-R-T Axes : 057 053 059 degrees QTc Int : 450 ms NORMAL SINUS RHYTHM POSSIBLE LEFT ATRIAL ENLARGEMENT BORDERLINE ECG WHEN COMPARED WITH ECG OF 05-MAY-2018 16:42, NO SIGNIFICANT CHANGE WAS FOUND Confirmed by ZAINAB REDDY, KAPIL ([id number]) on 05/13/2018 6:59:43 PM Referred By: Confirmed By:KAPIL LAMB MD
[2018-05-13 20:46] LABS: URINE APPEARANCE CLEAR; URINE BILIRUBIN NEGATIVE (<2.0 mg/dL); URINE COLOR LTYELLOW; URINE GLUCOSE (UA) NEGATIVE (NEGATIVE); URINE KETONE NEGATIVE (NEGATIVE); URINE LEUK ESTERASE NEGATIVE (NEGATIVE); URINE NITRITE NEGATIVE (NEGATIVE); URINE PROTEIN NEGATIVE (NEGATIVE); URINE UROBILINOGEN NEGATIVE mg/dL (0.2-1.0)
[2018-05-13] MEDS: MUPIROCIN 2% TOPICAL OINTMENT FOR DECOLONIZATION NS SCH (22:28)
[2018-05-13] MEDS: CHLORHEXIDINE GLUCONATE 4% CLEANSER FOR DECOLONIZATION TP SCH (22:28)
[2018-05-13] MEDS: HEPARIN NA (PORCINE) 5,000 UNITS/ML 1ML VIAL SQ SCH (22:28)
[2018-05-14] MEDS: ALBUTEROL SO4 2.5/IPRATROPIUM 0.5 INH SOL 3 ML VIAL.NEB. NEB SCH ×6 (00:17→20:52)
[2018-05-14] MEDS: methylPREDNISolone NA SUCC 40 MG/1 ML VIAL IVPUSH SCH ×3 (01:15→17:18)
[2018-05-14 06:01] LABS: BASO % 0.6 % (0-2.0); HEMATOCRIT 40.5 % (32.4-45.2); HEMOGLOBIN 13.2 GM/dL (10.7-15.3); LYMPH % 6.7 % (8-40); MCH 30.3 pg (25.7-33.7); MCHC 32.7 g/dl (32.0-36.0); MEAN CELL VOLUME 92.7 fl (80-96); MONO % 1.9 % (3.8-10.2); NEUT % 90.8 % (42.8-82.8); PLATELET COUNT 218 K/MM3 (134-434); RBC 4.37 M/mm3 (3.60-5.2); RDW 14.5 % (11.6-15.6); WHITE BLOOD COUNT 11.1 K/mm3 (4.0-10.0)
[2018-05-14] MEDS: ALBUTEROL SO4 0.083% IH SOL 2.5 MG/3 ML VIAL.NEB. NEB PRN (06:17)
[2018-05-14 06:32] LABS: ALBUMIN 2.4 g/dl (3.4-5.0); ALK PHOS 63 U/L (45-117); ANION GAP 11 MMOL/L (8-16); BILIRUBIN,TOTAL 0.4 mg/dL (0.2-1); BLOOD UREA NITROGEN 15 mg/dL (7-18); CALCIUM 7.6 mg/dL (8.5-10.1); CHLORIDE 107 mmol/L (98-107); CO2 24 mmol/L (21-32); CREATININE 0.6 mg/dL (0.55-1.3); GLUCOSE,RANDOM 137 mg/dL (74-106); MAGNESIUM 2.6 mg/dL (1.8-2.4); PHOSPHOROUS 3.5 mg/dL (2.5-4.9); POTASSIUM 4.2 mmol/L (3.5-5.1); SGOT/AST 15 U/L (15-37); SGPT/ALT 34 U/L (13-61); SODIUM 143 mmol/L (136-145); TOT PROT 5.8 g/dl (6.4-8.2)
[2018-05-14] MEDS: HEPARIN NA (PORCINE) 5,000 UNITS/ML 1ML VIAL SQ SCH ×3 (06:54→21:54)
--- NOTE | 2018-05-14 08:17 | PN ---
Physical Exam: SUBJECTIVE: Patient seen and examined in the ICU. afebrile. STEVENSON and desat 87-90 % when walking to bathroom. fluids held. placed on venti 50%, o2 sat 96-97%. Denies SÁNCHEZ, CP, SOB at rest, n/v/d. For possible VATs Wednesday Travel: No recent travel other than [place] back in March. Went to [facility] 12 years ago. Denies any exotic travel Allergies: Seasonal allergies. allergic to cats, bees, and rabbits. Neighbors have cats but she avoids contact. Neighbors have birds too. Pt has 2 dogs, one is Hebrew short hair she gets itchy and rash when touches it, second dog is Shitsu and is fine. Irritants: No changes in cleaning supplies. Uses Clorox and Mrs. Manrique sprays for bathrooms and house. Has not noticed any rexn or irritation when using it. Leaves the room, after she sprays/uses. No change in perfumes or shampoos and never has had any issues w/ current ones. Notes that neighbors were doing construction in their house 3 wks ago. Tumeric for 3wks for arthritis but stopped 2 wks ago when all of her sxs began. Home: bedroom is sub underground and damp but they use a dehumidifier. one daughter has cellulitis and being tx for suspected MRSA. second daughter has asthma, recently seen by pulm and is doing well. Meds: zoloft for many years. Denies herbal meds or supplements. Drinks peppermint tea. PMH: endorses occasional migranes but denies any joint pain or swelling in neck or hands. Denies rashes, hematuria, vision loss, n/v/d. FH: brother has RA OBJECTIVE: Vital Signs Period Temp Pulse Resp BP Sys/Cerrato Pulse Ox Last 24 Hr 98.0 F-99.1 F 79-109 16-30 82-135/49-86 9-97 GENERAL: AOX3 NAD on NC, talking comfortably HEENT: NCAT sclera anicteric, conjunctiva clear. No lid lag. Moist mucous membranes. NECK: Normal range of motion, supple without lymphadenopathy, JVD, or masses. LUNGS: crackles at bases b/l HEART: RRR, normal S1 and S2 without m/r/g ABDOMEN: Soft, NTND, normoactive bowel sounds, no guarding, no rebound, no masses. MUSCULOSKELETAL: Normal range of motion at all joints. No bony deformities or tenderness. No CVA tenderness. UPPER EXTREMITIES: 2+ pulses, warm, well-perfused. No cyanosis. No clubbing. Cap refill <2 seconds. No peripheral edema. LOWER EXTREMITIES: 2+ pulses, warm, well-perfused. No calf tenderness. No peripheral edema. NEUROLOGICAL: Cranial nerves II-XII intact. Normal speech. PSYCHIATRIC: Cooperative. Good eye contact. Appropriate mood and affect. SKIN: Warm, dry, normal turgor, no rashes or lesions noted. Laboratory Results - last 24 hr 05/13/18 05/13/18 05/13/18 11:50 11:51 11:51 WBC 16.0 H RBC 4.73 Hgb 14.1 Hct 43.2 MCV 91.3 MCH 29.8 MCHC 32.7 RDW 14.6 Plt Count 259 MPV 8.0 Absolute Neuts (auto) 14.1 H Neutrophils % 88.3 H Neutrophils % (Manual) 79.8 Band Neutrophils % 1.0 Lymphocytes % 4.6 L Lymphocytes % (Manual) 10.1 Monocytes % 5.8 Monocytes % (Manual) 5 Eosinophils % 1.2 Eosinophils % (Manual) 1.0 Basophils % 0.1 Basophils % (Manual) 0.0 Myelocytes % (Man) 1 Promyelocytes % (Man) 0 Blast Cells % (Manual) 0 Nucleated RBC % 0 Metamyelocytes 0 Hypochromia 0 Platelet Estimate Normal Polychromasia 0 Poikilocytosis 0 Anisocytosis 0 Microcytosis 0 Macrocytosis 0 PT with INR INR VBG pH POC VBG pCO2 POC VBG pO2 Mixed VBG HCO3 Sodium 140 Potassium 4.1 Chloride 104 Carbon Dioxide 24 Anion Gap 11 BUN 24 H Creatinine 0.8 Creat Clearance w eGFR > 60 Random Glucose 106 Calcium 8.3 L Phosphorus Magnesium Total Bilirubin 0.6 AST 20 ALT 38 Alkaline Phosphatase 69 Creatine Kinase 75 Troponin I < 0.02 B-Natriuretic Peptide 174.0 H Total Protein 6.2 L Albumin 2.6 L Urine Color Urine Appearance Urine pH Ur Specific [place] Urine Protein Urine Glucose (UA) Urine Ketones Urine Blood Urine Nitrite Urine Bilirubin Urine Urobilinogen Ur Leukocyte Esterase Influenza A (Rapid) Influenza B (Rapid) Blood Type O POSITIVE Antibody Screen Negative 05/13/18 05/13/18 05/13/18 11:51 11:51 18:36 WBC RBC Hgb Hct MCV MCH MCHC RDW Plt Count MPV Absolute Neuts (auto) Neutrophils % Neutrophils % (Manual) Band Neutrophils % Lymphocytes % Lymphocytes % (Manual) Monocytes % Monocytes % (Manual) Eosinophils % Eosinophils % (Manual) Basophils % Basophils % (Manual) Myelocytes % (Man) Promyelocytes % (Man) Blast Cells % (Manual) Nucleated RBC % Metamyelocytes Hypochromia Platelet Estimate Polychromasia Poikilocytosis Anisocytosis Microcytosis Macrocytosis PT with INR 13.00 INR 1.10 H VBG pH 7.43 H POC VBG pCO2 38.3 POC VBG pO2 53.2 H Mixed VBG HCO3 24.8 Sodium Potassium Chloride Carbon Dioxide Anion Gap BUN Creatinine Creat Clearance w eGFR Random Glucose Calcium Phosphorus Magnesium Total Bilirubin AST ALT Alkaline Phosphatase Creatine Kinase Troponin I B-Natriuretic Peptide Total Protein Albumin Urine Color Ltyellow Urine Appearance Clear Urine pH 5.0 Ur Specific [place] 1.021 Urine Protein Negative Urine Glucose (UA) Negative Urine Ketones Negative Urine Blood Negative Urine Nitrite Negative Urine Bilirubin Negative Urine Urobilinogen Negative Ur Leukocyte Esterase Negative Influenza A (Rapid) Influenza B (Rapid) Blood Type Antibody Screen 05/13/18 05/13/18 05/13/18 19:00 19:30 21:40 WBC RBC Hgb Hct MCV MCH MCHC RDW Plt Count MPV Absolute Neuts (auto) Neutrophils % Neutrophils % (Manual) Band Neutrophils % Lymphocytes % Lymphocytes % (Manual) Monocytes % Monocytes % (Manual) Eosinophils % Eosinophils % (Manual) Basophils % Basophils % (Manual) Myelocytes % (Man) Promyelocytes % (Man) Blast Cells % (Manual) Nucleated RBC % Metamyelocytes Hypochromia Platelet Estimate Polychromasia Poikilocytosis Anisocytosis Microcytosis Macrocytosis PT with INR INR VBG pH POC VBG pCO2 POC VBG pO2 Mixed VBG HCO3 Sodium Potassium Chloride Carbon Dioxide Anion Gap BUN Creatinine Creat Clearance w eGFR Random Glucose Calcium Phosphorus Magnesium Total Bilirubin AST ALT Alkaline Phosphatase Creatine Kinase Troponin I < 0.02 B-Natriuretic Peptide Total Protein Albumin Urine Color Urine Appearance Urine pH Ur Specific [place] Urine Protein Urine Glucose (UA) Urine Ketones Urine Blood Urine Nitrite Urine Bilirubin Urine Urobilinogen Ur Leukocyte Esterase Influenza A (Rapid) Negative Influenza B (Rapid) Negative Blood Type O POSITIVE Antibody Screen 05/14/18 05/14/18 05:30 05:30 WBC 11.1 H RBC 4.37 Hgb 13.2 Hct 40.5 MCV 92.7 MCH 30.3 MCHC 32.7 RDW 14.5 Plt Count 218 MPV 8.0 Absolute Neuts (auto) 10.1 H Neutrophils % 90.8 H Neutrophils % (Manual) Band Neutrophils % Lymphocytes % 6.7 L D Lymphocytes % (Manual) Monocytes % 1.9 L Monocytes % (Manual) Eosinophils % 0.0 D Eosinophils % (Manual) Basophils % 0.6 D Basophils % (Manual) Myelocytes % (Man) Promyelocytes % (Man) Blast Cells % (Manual) Nucleated RBC % 0 Metamyelocytes Hypochromia Platelet Estimate Polychromasia Poikilocytosis Anisocytosis Microcytosis Macrocytosis PT with INR INR VBG pH POC VBG pCO2 POC VBG pO2 Mixed VBG HCO3 Sodium 143 Potassium 4.2 Chloride 107 Carbon Dioxide 24 Anion Gap 11 BUN 15 Creatinine 0.6 Creat Clearance w eGFR > 60 Random Glucose 137 H Calcium 7.6 L Phosphorus 3.5 Magnesium 2.6 H Total Bilirubin 0.4 AST 15 ALT 34 Alkaline Phosphatase 63 Creatine Kinase Troponin I B-Natriuretic Peptide Total Protein 5.8 L Albumin 2.4 L Urine Color Urine Appearance Urine pH Ur Specific [place] Urine Protein Urine Glucose (UA) Urine Ketones Urine Blood Urine Nitrite Urine Bilirubin Urine Urobilinogen Ur Leukocyte Esterase Influenza A (Rapid) Influenza B (Rapid) Blood Type Antibody Screen Active Medications Generic Name Dose Route Start Last Admin Trade Name Freq PRN Reason Stop Dose Admin Albuterol Sulfate 1 amp 05/13/18 15:58 05/14/18 06:17 Ventolin 0.083% Nebulizer Soln - NEB 1 amp Q6H PRN Administration SHORT OF BREATH/WHEEZING Albuterol/Ipratropium 1 amp 05/13/18 16:00 05/14/18 08:01 Duoneb - NEB 1 amp Q4H KATERIN Administration Chlorhexidine Gluconate 1 applic 05/13/18 22:00 05/13/18 22:28 Hibiclens For Decolonization - TP 1 applic HS KATERIN Administration Heparin Sodium (Porcine) 5,000 unit 05/13/18 22:00 05/14/18 06:54 Heparin - SQ 5,000 unit TID KATERIN Administration Levofloxacin 750 mg in 150 mls @ 100 mls/hr 05/14/18 08:08 Levaquin 750 Mg Premixed Ivpb - IVPB 05/14/18 09:37 ONCE ONE Protocol Methylprednisolone Sodium Succinate 60 mg 05/13/18 16:00 05/14/18 01:15 Solu-Medrol - IVPUSH 60 mg Q8H-IV KATERIN Administration Mupirocin 1 applic 05/13/18 22:00 05/13/18 22:28 Bactroban Ointment (For Decolonization) - NS 05/18/18 21:59 1 applic BID KATERIN Administration Pantoprazole Sodium 40 mg 05/13/18 16:15 05/13/18 17:16 Protonix - PO 40 mg DAILY KATERIN Administration ASSESSMENT/PLAN: 52 yo F, PMH sleep apnea (c-pap at night), cryptogenic pneumonia?, p/w with, acute hypoxic respiratory failure 2/2 possible sepsis 2/2 pneumonia vs ILD Problems: acute hypoxic respiratory failure r/o sepsis leukocytosis - sepsis vs current steroid use ILD: acute onset (?) Rheumatologic (brother has RA) (?) BOOP (?) HP sleep apnea (c-pap at night) s/p 1 L NS in ED O2 as needed maintain sat >90% c-pap at pvc monitor H/H solumedrol 60q8h bronchodilators Maintain MAP >65 cardiac monitoring echo 05/03/18 - nl CT 05/09/18 - ILD CXR 05/14/18- increased lung markings in lower lobes. no obvious consolidations. Poor insip effort/quality EKG in ED NSR w/ no ST ischemic changes, trop neg x2 f/u bcx, ucx, sputum cx, legionella UA, flu neg ID consult will give one dose levaquin as pt has not completed her 6 day course. further abx per ID will send serology studies to further w/u possible causes of ILD: HIV, DEION, ANCA. RF, anti-GBM. consider Rheum consult pending lab results For possible VATs Wednesday Thoracic consult FEN hold IVF replete prn regular diet ppx SQH protonix Dispo: ICU monitoring For possible VATs Wednesday Visit type - Emergency Visit Emergency Visit: Yes ED Registration Date: 05/13/18 Care time: The patient presented to the Emergency Department on the above date and was hospitalized for further evaluation of their emergent condition. - New Patient This patient is new to me today: Yes Date on this admission: 05/14/18 - Critical Care Critical Care patient: Yes Total Critical Care Time (in minutes): 38 Critical Care Statement: The care of this patient involved high complexity decision making to prevent further life threatening deterioration of the patient 's condition and/or to evaluate & treat vital organ system(s) failure or risk of failure.
[2018-05-14] MEDS: PANTOPRAZOLE 40 MG TABLET (FP) PO SCH (09:11)
[2018-05-14] MEDS: MUPIROCIN 2% TOPICAL OINTMENT FOR DECOLONIZATION NS SCH ×2 (09:12→21:54)
--- NOTE | 2018-05-14 10:10 | PN ---
Teaching Attending Note Name of Resident: Cuong Pantoja ATTENDING PHYSICIAN STATEMENT I saw and evaluated the patient. I reviewed the resident's note and discussed the case with the resident. I agree with the resident's findings and plan as documented. SUBJECTIVE: Patient seen and examined in the ICU. Dyspneic and desaturation after ambulating just short distance. No CP. No hemoptysis. Probable VATs Wednesday. Intake & Output 05/11/18 05/12/18 05/13/18 05/14/18 23:59 23:59 23:59 23:59 Intake Total 540 1200 Output Total 500 Balance 40 1200 Weight 220 lb 217 lb Last Vital Signs Temp Pulse Resp BP Pulse Ox 98.2 F 104 H 20 104/57 L 93 L 05/14/18 09:47 05/14/18 09:47 05/14/18 09:47 05/14/18 09:47 05/14/18 03:30 Active Medications Albuterol Sulfate (Ventolin 0.083% Nebulizer Soln -) 1 amp NEB Q6H PRN PRN Reason: SHORT OF BREATH/WHEEZING Last Admin: 05/14/18 06:17 Dose: 1 amp Albuterol/Ipratropium (Duoneb -) 1 amp NEB Q4H KATERIN Last Admin: 05/14/18 08:01 Dose: 1 amp Chlorhexidine Gluconate (Hibiclens For Decolonization -) 1 applic TP HS [facility] Last Admin: 05/13/18 22:28 Dose: 1 applic Heparin Sodium (Porcine) (Heparin -) 5,000 unit SQ TID [facility] Last Admin: 05/14/18 06:54 Dose: 5,000 unit Methylprednisolone Sodium Succinate (Solu-Medrol -) 60 mg IVPUSH Q8H-IV KATERIN Last Admin: 05/14/18 09:12 Dose: 60 mg Mupirocin (Bactroban Ointment (For Decolonization) -) 1 applic NS BID [facility] Stop: 05/18/18 21:59 Last Admin: 05/14/18 09:12 Dose: 1 applic Pantoprazole Sodium (Protonix -) 40 mg PO DAILY [facility] Last Admin: 05/14/18 09:11 Dose: 40 mg GENERAL: AOX3 NAD on NC, Mildly tachypneic HEENT: NCAT sclera anicteric, conjunctiva clear. No lid lag. Moist mucous membranes. NECK: Normal range of motion, supple without lymphadenopathy, JVD, or masses. LUNGS: Rhonchi HEART: RRR, normal S1 and S2 without murmur, rub or gallop. ABDOMEN: Soft, NT, ND, normoactive bowel sounds, no guarding, no rebound, no masses. MUSCULOSKELETAL: Normal range of motion at all joints. No bony deformities or tenderness. No CVA tenderness. UPPER EXTREMITIES: 2+ pulses, warm, well-perfused. No cyanosis. No clubbing. Cap refill <2 seconds. No peripheral edema. LOWER EXTREMITIES: 2+ pulses, warm, well-perfused. No calf tenderness. No peripheral edema. NEUROLOGICAL: Non-focal PSYCHIATRIC: Cooperative. Good eye contact. Appropriate mood and affect. SKIN: Warm, dry, normal turgor, no rashes or lesions noted. Laboratory Results - last 24 hr 05/13/18 05/13/18 05/13/18 11:50 11:51 11:51 WBC 16.0 H RBC 4.73 Hgb 14.1 Hct 43.2 MCV 91.3 MCH 29.8 MCHC 32.7 RDW 14.6 Plt Count 259 MPV 8.0 Absolute Neuts (auto) 14.1 H Neutrophils % 88.3 H Lymphocytes % 4.6 L Monocytes % 5.8 Eosinophils % 1.2 Basophils % 0.1 Nucleated RBC % 0 PT with INR INR VBG pH POC VBG pCO2 POC VBG pO2 Mixed VBG HCO3 Sodium 140 Potassium 4.1 Chloride 104 Carbon Dioxide 24 Anion Gap 11 BUN 24 H Creatinine 0.8 Creat Clearance w eGFR > 60 Random Glucose 106 Calcium 8.3 L Total Bilirubin 0.6 AST 20 ALT 38 Alkaline Phosphatase 69 Creatine Kinase 75 Troponin I < 0.02 B-Natriuretic Peptide 174.0 H Total Protein 6.2 L Albumin 2.6 L Blood Type O POSITIVE Antibody Screen Negative 05/13/18 05/13/18 11:51 11:51 WBC RBC Hgb Hct MCV MCH MCHC RDW Plt Count MPV Absolute Neuts (auto) Neutrophils % Lymphocytes % Monocytes % Eosinophils % Basophils % Nucleated RBC % PT with INR 13.00 INR 1.10 H VBG pH 7.43 H POC VBG pCO2 38.3 POC VBG pO2 53.2 H Mixed VBG HCO3 24.8 Sodium Potassium Chloride Carbon Dioxide Anion Gap BUN Creatinine Creat Clearance w eGFR Random Glucose Calcium Total Bilirubin AST ALT Alkaline Phosphatase Creatine Kinase Troponin I B-Natriuretic Peptide Total Protein Albumin Blood Type Antibody Screen Active Medications Generic Name Dose Route Start Last Admin Trade Name Destiny PRN Reason Stop Dose Admin Albuterol Sulfate 1 amp 05/13/18 15:58 Ventolin 0.083% Nebulizer Soln - NEB Q6H PRN SHORT OF BREATH/WHEEZING Albuterol/Ipratropium 1 amp 05/13/18 16:00 Duoneb - NEB Q4H KATERIN Chlorhexidine Gluconate 1 applic 05/13/18 22:00 Hibiclens For Decolonization - TP HS KATERIN Heparin Sodium (Porcine) 5,000 unit 05/13/18 18:00 Heparin - SQ Q8H-IV KATERIN Methylprednisolone Sodium Succinate 60 mg 05/13/18 16:00 Solu-Medrol - IVPUSH Q8H-IV KATERIN Mupirocin 1 applic 05/13/18 22:00 Bactroban Ointment (For Decolonization) - NS 05/18/18 21:59 BID KATERIN ASSESSMENT/PLAN: Acute hypoxic respiratory failure R/O Sepsis ILD: acute onset (?) Rheumatologic (brother has RA) (?) BOOP (?) HP ABX per ID O2 as needed Medrol BD TX Follow cultures Monitor off IVF For possible VATs Wednesday ICU monitoring due to tenuous respiratory status Dr Dukes Critical care time spent in reviewing chart, evaluating patient and formulating plan - 36 minutes.
--- NOTE | 2018-05-14 11:29 | HP ---
Admitting History and Physical - Admission History of Present Illness: 52 year old female, with a significant past medical history of sleep apnea (c- pap at night), who presents to the emergency department with, shortness of breath and pneumonia. The patient was at her bead stringer today when she was found to be hypoxic. Patient endorses for she was recently admitted to [facility] 05/05 for similar symptoms. As per Dr. 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 The patient notes the only changes in her lifestyle was the implementation of turmeric and she has not been cleaning her c-pap enough thus, an unknown residue. Patient endorses at home when she is off oxygen she is hypoxic to the 70s. Denies any recent travel clerk states comfortable unless she exerts herself - Past Medical History Cardiovascular: No: CHF, HTN Pulmonary: Yes: COPD, Pneumonia, Sleep Apnea. No: O2 Dependent ...LMP Comment: 5 years ago ...: No Psych: Yes: Depression. No: Addictions - Past Surgical History Past Surgical History: Yes: None - Smoking History Smoking history: Never smoked Have you smoked in the past 12 months: No - Alcohol/Substance Use Hx Alcohol Use: No History of Substance Use: reports: None - Social History ADL: Independent History of Recent Travel: No Home Medications - Allergies Allergies/Adverse Reactions: Allergies Allergy/AdvReac Type Severity Reaction Status Date / Time amoxicillin [From Augmentin] Allergy Intermediate Nausea Verified 05/13/18 11:25 clavulanic acid Allergy Intermediate Nausea Verified 05/13/18 11:25 [From Augmentin] turmeric Allergy Intermediate Difficulty Verified 05/13/18 11:25 Breathing azithromycin [From Zithromax] Allergy Mild Rash Verified 05/13/18 11:25 cefixime [From Suprax] Allergy Mild Rash Verified 05/13/18 11:25 - Home Medications Home Medications: Ambulatory Orders Prednisone [Deltasone] 60 mg PO DAILY 05/05/18 Sertraline HCl [Zoloft] 25 mg PO HS 05/05/18 Sertraline HCl [Zoloft] 100 mg PO HS 05/05/18 Review of Systems - Review of Systems Cardiovascular: reports: Chest Pain (heaviness when exerts herself), Shortness of Breath Respiratory: denies: Cough Gastrointestinal: denies: Abdominal Pain Physical Examination Vital Signs: Vital Signs Temperature 98.2 F 05/14/18 09:47 Pulse Rate 104 H 05/14/18 09:47 Respiratory Rate 20 05/14/18 09:47 Blood Pressure 104/57 L 05/14/18 09:47 O2 Sat by Pulse Oximetry (%) 93 L 05/14/18 03:30 Cardiovascular: Yes: Regular Rate and Rhythm Respiratory: Yes: On Nasal O2, Rhonchi Gastrointestinal: Yes: Normal Bowel Sounds, Soft Edema: No Labs: CBC, BMP 05/14/18 05:30 05/14/18 05:30 Problem List - Problems (1) Pneumonia Assessment/Plan: --Previous w/u noted -ID consult -Received Levaquin in ER Code(s): J18.9 - PNEUMONIA, UNSPECIFIED ORGANISM (2) Chronic lung disease Assessment/Plan: -Of unknown Etiology -Pulm on case -IV steroids -Nebs -TS consult for biopsy Code(s): J98.4 - OTHER DISORDERS OF LUNG (3) Hypoxemia Assessment/Plan: -as above Code(s): R09.02 - HYPOXEMIA (4) Sleep apnea Code(s): G47.30 - SLEEP APNEA, UNSPECIFIED (5) Chest pain Assessment/Plan: -Probbaly related to breathing-hypoxia -Echo noted-?LV compliance--nl ef -CE negative -EKG NSR - Cardio Code(s): R07.9 - CHEST PAIN, UNSPECIFIED
--- NOTE | 2018-05-14 13:03 | PN ---
Progress Note (short form) - Note Progress Note: ID Consult dictated ?Persistant/ recurrent pneumonia ? Non-infectious etiology Multiple antibiotic allergies Pending c/s empiric levaquin/ vancomycin
[2018-05-14 13:38] LABS: ANISOCYTOSIS 2+; MACROCYTOSIS 1+; PLATELET ESTIMATE NORMAL; TEAR DROP CELLS 1+
--- NOTE | 2018-05-14 14:07 | CONS ---
INFECTIOUS DISEASE CONSULTATION DATE OF CONSULTATION: DATE OF DICTATION: 05/14/2018 HISTORY OF PRESENT ILLNESS: The patient is a 52-year-old female evaluated for pneumonia. She was admitted to the hospital with worsening dyspnea and desaturation. The patient was recently hospitalized at [facility] from May 05 through May 09 with pneumonia at that time. She had been hospitalized after presenting with a 5-to-6-day history of worsening shortness of breath. This occurred after taking turmeric for joint complaints. She had developed shortness of breath and dry cough. She was seen by a rubberizing mechanic who prescribed prednisone. Despite the prednisone, she continued to have increasing shortness of breath, cough, and chest pressure, as well as subjective fever. She was admitted to the hospital where a CAT scan showed diffuse, patchy consolidations both lung martinez. She complains of shortness of breath and cough. She denied any ill contacts, recent travel or significant pet exposure. She is a nonsmoker. She received a course of Levaquin with clinical improvement. She was switched to oral Levaquin and discharged home on May 09. She now returns with worsening shortness of breath with minimal exertion. The patient states that she was using oxygen at home 2 L via nasal cannula and became short of breath with minimal exertion. She returned to the emergency room where she is now admitted to the intensive care unit. Chest x-ray shows increased markings at the bases bilaterally. She complains of cough productive of whitish sputum. No hemoptysis or purulent sputum production. No chest pain. Her course is significant for hypotension and tachycardia. She received IV fluids. At the present time, she is awake and alert. She is seated in bed. She complains of dyspnea with minimal exertion. She is on nasal cannula and appears slightly dyspneic. She also remains tachycardiac. Her temperatures have been normal and her white blood cell count has been elevated on prednisone. PAST MEDICAL HISTORY: Positive for obstructive sleep apnea. ALLERGIES: AUGMENTIN; ZITHROMAX; CEFIXIME. She reports rash. SYSTEMS REVIEW: Neurologic: No loss of consciousness, seizure activity, focal weakness. Cardiac: Negative chest pain or palpitations. Respiratory: As per HPI. Gastrointestinal: Negative vomiting or diarrhea. Genitourinary: Negative for urinary tract infection. LABORATORY DATA: White count on admission 16,000, presently 11.1, hematocrit 40.5, platelet count 218; differential 90 neutrophils, 6 lymphocytes, 2 monocytes. Creatinine 0.6. Liver enzymes normal. Urinalysis negative. Flu swab negative. HIV test pending. PHYSICAL EXAMINATION: General: On exam, she is awake and alert. She is seated in bed. She is slightly dyspneic on nasal cannula O2. Vital signs: Temperature 98.2, blood pressure 118/55, pulse 118, regular, respirations 22 per minute. Eyes: Sclerae are anicteric. Heart: Heart sounds tachycardiac, S1, S2. Lungs: Crepitations at the bases bilaterally. Abdomen: Soft. No tenderness elicited. No mass, rebound or rigidity. Extremities: Negative for edema. IMPRESSION: 1. Possible persistent/recurrent atypical pneumonia. 2. Rule out non-infectious pneumonitis. 3. MULTIPLE ANTIBIOTIC ALLERGIES. PLAN: Await culture results. Obtain respiratory-viral panel. Empiric antibiotic coverage with Levaquin and vancomycin in a PENICILLIN and CEPHALOSPORIN-allergic patient. Pulmonary followup. Inhaled bronchodilators. Intravenous corticosteroids. Thank you for the kind referral. LORENA AREVALO M.D. [id number]
--- NOTE | 2018-05-14 14:25 | CON.CARD ---
Consult Consult Specialty:: Cardiology - History of Present Illness Chief Complaint: Hypoxia History of Present Illness: 52 F with ROBERTO on CPAP and 3 weeks of cough with patchy infiltrates on CT and hypoxia with persistent dyspnea on effort. She has no prior history of CAD, or arrhythmia. No edema, palpitations, chest pain. A recent echocardigoram in April showed normal biventricular function without valvualr pathology or pulmonary HTN. She may require VATS for further investigation. - Past Medical History Cardio/Vascular: No: CHF, HTN Pulmonary: Yes: COPD, Pneumonia, Sleep Apnea. No: O2 Dependent ...LMP Comment: 5 years ago ...: No Psych: Yes: Depression. No: Addictions - Past Surgical History Past Surgical History: Yes: None - Alcohol/Substance Use Hx Alcohol Use: No History of Substance Use: reports: None - Smoking History Smoking history: Never smoked Have you smoked in the past 12 months: No - Social History ADL: Independent History of Recent Travel: No Home Medications - Allergies Allergies/Adverse Reactions: Allergies Allergy/AdvReac Type Severity Reaction Status Date / Time amoxicillin [From Augmentin] Allergy Intermediate Nausea Verified 05/13/18 11:25 clavulanic acid Allergy Intermediate Nausea Verified 05/13/18 11:25 [From Augmentin] turmeric Allergy Intermediate Difficulty Verified 05/13/18 11:25 Breathing azithromycin [From Zithromax] Allergy Mild Rash Verified 05/13/18 11:25 cefixime [From Suprax] Allergy Mild Rash Verified 05/13/18 11:25 - Home Medications Home Medications: Ambulatory Orders Prednisone [Deltasone] 60 mg PO DAILY 05/05/18 Sertraline HCl [Zoloft] 25 mg PO HS 05/05/18 Sertraline HCl [Zoloft] 100 mg PO HS 05/05/18 Review of Systems - Review of Systems Constitutional: reports: Lethargy, Malaise. denies: Chills, Diaphoresis, Night Sweats Eyes: reports: No Symptoms HENT: reports: No Symptoms. denies: Difficult Swallowing Neck: reports: No Symptoms Cardiovascular: reports: Shortness of Breath. denies: Chest Pain, Edema, Palpitations Respiratory: reports: Cough, Exercise Intolerance, SOB, SOB on Exertion. denies : Wheezing Gastrointestinal: denies: Abdominal Pain, Bloating, Constipation, Diarrhea, Indigestion, Melena, Nausea Genitourinary: reports: No Symptoms Breasts: reports: No Symptoms Reported Vital Signs: Vital Signs Temperature 98.2 F 05/14/18 09:47 Pulse Rate 118 H 05/14/18 12:00 Respiratory Rate 22 H 05/14/18 12:00 Blood Pressure 118/55 L 05/14/18 12:00 O2 Sat by Pulse Oximetry (%) 93 L 05/14/18 03:30 Constitutional: Yes: Well Nourished, No Distress, Calm Eyes: Yes: Conjunctiva Clear, EOM Intact HENT: Yes: Atraumatic, Normocephalic Neck: Yes: Supple, Trachea Midline Respiratory: Yes: Regular, Cough, On Nasal O2, Rhonchi. No: Orthopnea Gastrointestinal: Yes: Normal Bowel Sounds Cardiovascular: Yes: Regular Rate and Rhythm. No: Pulse Irregular, Gallop, Rub JVD: No Carotid Bruit: No Heart Sounds: Yes: S1, S2 Murmur: No: Systolic Murmur, Diastolic Murmur Extremities: Yes: WNL Edema: No - Other Data Labs, Other Data: CBC, BMP 05/14/18 05:30 05/14/18 05:30 INR, PTT INR 1.10 (0.83-1.09) H 05/13/18 11:51 Troponin, BNP 05/13/18 21:40 Troponin I < 0.02 Troponin, BNP 05/13/18 21:40 Troponin I < 0.[address] T changes. Problem List - Problems (1) Chronic lung disease Code(s): J98.4 - OTHER DISORDERS OF LUNG (2) Pneumonia Code(s): J18.9 - PNEUMONIA, UNSPECIFIED ORGANISM (3) Pneumonitis Code(s): J18.9 - PNEUMONIA, UNSPECIFIED ORGANISM Assessment/Plan 52 F with new onset of cough hypoxia and dyspnea with evidence of patchy infitrates and possibly pneumonitis. No cardiac symptoms. A recent echocardiogram showed normal biventricular function without valvualr pathology or pulmonary HTN. ECG is normal. No indication of cardiac disease or heart failure. Will see as needed.
[2018-05-14] MEDS: VANCOMYCIN 1 GRAM (PRE-DOCKED) 1,000 MG/250 ML BAG IVPB SCH (15:33)
--- NOTE | 2018-05-14 21:21 | EKG ---
Test Reason : Blood Pressure : / mmHG Vent. Rate : 084 BPM Atrial Rate : 084 BPM P-R Int : 120 ms QRS Dur : 084 ms QT Int : 386 ms P-R-T Axes : 047 059 061 degrees QTc Int : 456 ms NORMAL SINUS RHYTHM NONSPECIFIC ST ABNORMALITY ABNORMAL ECG WHEN COMPARED WITH ECG OF 13-MAY-2018 12:07, NO SIGNIFICANT CHANGE WAS FOUND Confirmed by KAPIL LAMB MD ([id number]) on 05/14/2018 9:21:27 PM Referred By: ESTEFANY Confirmed By:KAPIL LAMB MD
[2018-05-14] MEDS: SERTRALINE HCL 50 MG TABLET (FP) PO SCH (21:53)
[2018-05-14] MEDS: CHLORHEXIDINE GLUCONATE 4% CLEANSER FOR DECOLONIZATION TP SCH (21:54)
[2018-05-15] MEDS: ALBUTEROL SO4 2.5/IPRATROPIUM 0.5 INH SOL 3 ML VIAL.NEB. NEB SCH ×6 (00:30→23:04)
[2018-05-15] MEDS: VANCOMYCIN 1 GRAM (PRE-DOCKED) 1,000 MG/250 ML BAG IVPB SCH ×2 (02:35→15:51)
[2018-05-15] MEDS: methylPREDNISolone NA SUCC 40 MG/1 ML VIAL IVPUSH SCH ×3 (02:35→18:29)
[2018-05-15 05:59] LABS: BASO % 0.3 % (0-2.0); HEMATOCRIT 39.2 % (32.4-45.2); LYMPH % 6.6 % (8-40); MCH 30.6 pg (25.7-33.7); MCHC 33.3 g/dl (32.0-36.0); MEAN PLT VOLUME 8.2 fl (7.5-11.1); MONO % 4.9 % (3.8-10.2); NEUT % 88.2 % (42.8-82.8); PLATELET COUNT 237 K/MM3 (134-434); RBC 4.26 M/mm3 (3.60-5.2); RDW 14.6 % (11.6-15.6)
[2018-05-15 06:36] LABS: ALBUMIN 2.5 g/dl (3.4-5.0); ALK PHOS 63 U/L (45-117); ANION GAP 11 MMOL/L (8-16); BILIRUBIN,TOTAL 0.4 mg/dL (0.2-1); BLOOD UREA NITROGEN 18 mg/dL (7-18); CALCIUM 8.1 mg/dL (8.5-10.1); CHLORIDE 106 mmol/L (98-107); CO2 24 mmol/L (21-32); CREATININE 0.7 mg/dL (0.55-1.3); GLUCOSE,RANDOM 144 mg/dL (74-106); MAGNESIUM 2.5 mg/dL (1.8-2.4); POTASSIUM 4.1 mmol/L (3.5-5.1); SGOT/AST 19 U/L (15-37); SGPT/ALT 44 U/L (13-61); SODIUM 140 mmol/L (136-145); TOT PROT 5.7 g/dl (6.4-8.2)
[2018-05-15] MEDS: HEPARIN NA (PORCINE) 5,000 UNITS/ML 1ML VIAL SQ SCH ×3 (06:55→21:05)
[2018-05-15] MEDS: PANTOPRAZOLE 40 MG TABLET (FP) PO SCH (09:02)
--- NOTE | 2018-05-15 10:14 | PN ---
Teaching Attending Note Name of Resident: Karen Arzate ATTENDING PHYSICIAN STATEMENT I saw and evaluated the patient. I reviewed the resident's note and discussed the case with the resident. I agree with the resident's findings and plan as documented. SUBJECTIVE: Patient seen and examined in the ICU. Still desaturating after ambulating just short distance. No CP. Slight hemoptysis (less than 2 cc). Probable VATs tomorrow. Intake & Output 05/12/18 05/13/18 05/14/18 05/15/18 23:59 23:59 23:59 23:59 Intake Total 540 3000 450 Output Total 500 1000 1200 Balance 40 2000 -750 Weight 220 lb 217 lb Last Vital Signs Temp Pulse Resp BP Pulse Ox 98.0 F 86 22 H 103/55 L 97 05/15/18 06:00 05/15/18 06:00 05/15/18 06:00 05/15/18 06:00 05/15/18 02:30 Active Medications Albuterol Sulfate (Ventolin 0.083% Nebulizer Soln -) 1 amp NEB Q6H PRN PRN Reason: SHORT OF BREATH/WHEEZING Last Admin: 05/14/18 06:17 Dose: 1 amp Albuterol/Ipratropium (Duoneb -) 1 amp NEB Q4H [facility] Last Admin: 05/15/18 07:20 Dose: 1 amp Chlorhexidine Gluconate (Hibiclens For Decolonization -) 1 applic TP HS [facility] Last Admin: 05/14/18 21:54 Dose: 1 applic Heparin Sodium (Porcine) (Heparin -) 5,000 unit SQ TID [facility] Last Admin: 05/15/18 06:55 Dose: 5,000 unit Levofloxacin (Levaquin 750 Mg Premixed Ivpb -) 750 mg in 150 mls @ 150 mls/hr IVPB DAILY [facility]; Protocol Last Admin: 05/15/18 09:01 Dose: 150 mls/hr Vancomycin HCl (Vancomycin (Pre-Docked)) 1,000 mg in 250 mls @ 166.667 mls/hr IVPB BID@0230,1430 [facility]; Protocol Last Admin: 05/15/18 02:35 Dose: 166.667 mls/hr Methylprednisolone Sodium Succinate (Solu-Medrol -) 60 mg IVPUSH Q8H-IV [facility] Last Admin: 05/15/18 09:02 Dose: 60 mg Mupirocin (Bactroban Ointment (For Decolonization) -) 1 applic NS BID [facility] Stop: 05/18/18 21:59 Last Admin: 05/14/18 21:54 Dose: 1 applic Pantoprazole Sodium (Protonix -) 40 mg PO DAILY [facility] Last Admin: 05/15/18 09:02 Dose: 40 mg Sertraline HCl (Zoloft -) 125 mg PO HS [facility] Last Admin: 05/14/18 21:53 Dose: 125 mg GENERAL: AOX3 NAD on NC, Mildly tachypneic HEENT: NCAT sclera anicteric, conjunctiva clear. No lid lag. Moist mucous membranes. NECK: Normal range of motion, supple without lymphadenopathy, JVD, or masses. LUNGS: Rhonchi HEART: RRR, normal S1 and S2 without murmur, rub or gallop. ABDOMEN: Soft, NT, ND, normoactive bowel sounds, no guarding, no rebound, no masses. MUSCULOSKELETAL: Normal range of motion at all joints. No bony deformities or tenderness. No CVA tenderness. UPPER EXTREMITIES: 2+ pulses, warm, well-perfused. No cyanosis. No clubbing. Cap refill <2 seconds. No peripheral edema. LOWER EXTREMITIES: 2+ pulses, warm, well-perfused. No calf tenderness. No peripheral edema. NEUROLOGICAL: Non-focal PSYCHIATRIC: Cooperative. Good eye contact. Appropriate mood and affect. SKIN: Warm, dry, normal turgor, no rashes or lesions noted. Laboratory Results - last 24 hr 05/14/18 05/14/18 05/14/18 05:30 12:08 12:08 WBC RBC Hgb Hct MCV MCH MCHC RDW Plt Count MPV Absolute Neuts (auto) Neutrophils % Neutrophils % (Manual) 83.0 H Band Neutrophils % 2.0 Lymphocytes % Lymphocytes % (Manual) 8.0 D Monocytes % Monocytes % (Manual) 4 Eosinophils % Eosinophils % (Manual) 0.0 D Basophils % Basophils % (Manual) 0.0 Myelocytes % (Man) 1 Promyelocytes % (Man) 0 Blast Cells % (Manual) 0 Nucleated RBC % Metamyelocytes 2 D Hypochromia 0 Platelet Estimate Normal Polychromasia 0 Poikilocytosis 1+ Anisocytosis 2+ Microcytosis 1+ Macrocytosis 1+ Tear Drop Cells 1+ Sodium Potassium Chloride Carbon Dioxide Anion Gap BUN Creatinine Creat Clearance w eGFR Random Glucose Calcium Phosphorus Magnesium Total Bilirubin AST ALT Alkaline Phosphatase Total Protein Albumin Rheumatoid Factor < 10.0 HIV 1&2 Antibody Screen Negative HIV P24 Antigen Negative 05/15/18 05/15/18 05:30 05:30 WBC 15.0 H RBC 4.26 Hgb 13.0 Hct 39.2 MCV 92.0 MCH 30.6 MCHC 33.3 RDW 14.6 Plt Count 237 MPV 8.2 Absolute Neuts (auto) 13.2 H Neutrophils % 88.2 H Neutrophils % (Manual) Band Neutrophils % Lymphocytes % 6.6 L Lymphocytes % (Manual) Monocytes % 4.9 D Monocytes % (Manual) Eosinophils % 0.0 Eosinophils % (Manual) Basophils % 0.3 Basophils % (Manual) Myelocytes % (Man) Promyelocytes % (Man) Blast Cells % (Manual) Nucleated RBC % 0 Metamyelocytes Hypochromia Platelet Estimate Polychromasia Poikilocytosis Anisocytosis Microcytosis Macrocytosis Tear Drop Cells Sodium 140 Potassium 4.1 Chloride 106 Carbon Dioxide 24 Anion Gap 11 BUN 18 Creatinine 0.7 Creat Clearance w eGFR > 60 Random Glucose 144 H Calcium 8.1 L Phosphorus 3.0 Magnesium 2.5 H Total Bilirubin 0.4 AST 19 ALT 44 Alkaline Phosphatase 63 Total Protein 5.7 L Albumin 2.5 L Rheumatoid Factor HIV 1&2 Antibody Screen HIV P24 Antigen ASSESSMENT/PLAN: Acute hypoxic respiratory failure R/O Sepsis ILD: acute onset (?) Rheumatologic (brother has RA) (?) BOOP (?) HP ABX per ID O2 as needed Medrol BD TX Follow cultures Monitor off IVF For possible VATs tomorrow ICU monitoring due to tenuous respiratory status Dr Dukes Critical care time spent in reviewing chart, evaluating patient and formulating plan - 36 minutes.
--- NOTE | 2018-05-15 10:27 | PN ---
Physical Exam: SUBJECTIVE: Patient seen and examined pt feels improved, but notes that she is still desaturates when she walks to the bathroom OBJECTIVE: Vital Signs Period Temp Pulse Resp BP Sys/Cerrato Pulse Ox Last 24 Hr 97.6 F-98.4 F 84-118 20-30 96-122/48-72 95-98 GENERAL: The patient is awake, alert, and fully oriented, in no acute distress. HEAD: Normal with no signs of trauma. EYES: extraocular movements intact, sclera anicteric, conjunctiva clear. No ptosis. ENT: moist mucous membranes NECK: Trachea midline, full range of motion, supple. LUNGS: mild coarse crackles bilaterally, decreased breath sounds at the bases.breath. no wheezes, no accessory muscle use. HEART: Regular rate and rhythm, S1, S2 without murmur, rub or gallop. ABDOMEN: Soft, nontender, nondistended, normoactive bowel sounds, no guarding, no rebound, no hepatosplenomegaly, no masses. EXTREMITIES: 2+ pulses, warm, well-perfused, no edema. NEUROLOGICAL: Cranial nerves II through XII grossly intact. Normal speech, gait not observed. PSYCH: Normal mood, normal affect. SKIN: Warm, dry, normal turgor, no rashes or lesions noted Laboratory Results - last 24 hr 05/14/18 05/14/18 05/14/18 05:30 12:08 12:08 WBC RBC Hgb Hct MCV MCH MCHC RDW Plt Count MPV Absolute Neuts (auto) Neutrophils % Neutrophils % (Manual) 83.0 H Band Neutrophils % 2.0 Lymphocytes % Lymphocytes % (Manual) 8.0 D Monocytes % Monocytes % (Manual) 4 Eosinophils % Eosinophils % (Manual) 0.0 D Basophils % Basophils % (Manual) 0.0 Myelocytes % (Man) 1 Promyelocytes % (Man) 0 Blast Cells % (Manual) 0 Nucleated RBC % Metamyelocytes 2 D Hypochromia 0 Platelet Estimate Normal Polychromasia 0 Poikilocytosis 1+ Anisocytosis 2+ Microcytosis 1+ Macrocytosis 1+ Tear Drop Cells 1+ Sodium Potassium Chloride Carbon Dioxide Anion Gap BUN Creatinine Creat Clearance w eGFR Random Glucose Calcium Phosphorus Magnesium Total Bilirubin AST ALT Alkaline Phosphatase Total Protein Albumin Rheumatoid Factor < 10.0 HIV 1&2 Antibody Screen Negative HIV P24 Antigen Negative 05/15/18 05/15/18 05:30 05:30 WBC 15.0 H RBC 4.26 Hgb 13.0 Hct 39.2 MCV 92.0 MCH 30.6 MCHC 33.3 RDW 14.6 Plt Count 237 MPV 8.2 Absolute Neuts (auto) 13.2 H Neutrophils % 88.2 H Neutrophils % (Manual) Band Neutrophils % Lymphocytes % 6.6 L Lymphocytes % (Manual) Monocytes % 4.9 D Monocytes % (Manual) Eosinophils % 0.0 Eosinophils % (Manual) Basophils % 0.3 Basophils % (Manual) Myelocytes % (Man) Promyelocytes % (Man) Blast Cells % (Manual) Nucleated RBC % 0 Metamyelocytes Hypochromia Platelet Estimate Polychromasia Poikilocytosis Anisocytosis Microcytosis Macrocytosis Tear Drop Cells Sodium 140 Potassium 4.1 Chloride 106 Carbon Dioxide 24 Anion Gap 11 BUN 18 Creatinine 0.7 Creat Clearance w eGFR > 60 Random Glucose 144 H Calcium 8.1 L Phosphorus 3.0 Magnesium 2.5 H Total Bilirubin 0.4 AST 19 ALT 44 Alkaline Phosphatase 63 Total Protein 5.7 L Albumin 2.5 L Rheumatoid Factor HIV 1&2 Antibody Screen HIV P24 Antigen Active Medications Generic Name Dose Route Start Last Admin Trade Name Freq PRN Reason Stop Dose Admin Albuterol Sulfate 1 amp 05/13/18 15:58 05/14/18 06:17 Ventolin 0.083% Nebulizer Soln - NEB 1 amp Q6H PRN Administration SHORT OF BREATH/WHEEZING Albuterol/Ipratropium 1 amp 05/13/18 16:00 05/15/18 07:20 Duoneb - NEB 1 amp Q4H [facility]ATER[facility] Administration Chlorhexidine Gluconate 1 applic 05/13/18 22:00 05/14/18 21:54 Hibiclens For Decolonization - TP 1 applic HS [facility]ATER[facility] Administration Heparin Sodium (Porcine) 5,000 unit 05/13/18 22:00 05/15/18 06:55 Heparin - SQ 5,000 unit TID [facility] Administration Levofloxacin 750 mg in 150 mls @ 150 mls/hr 05/15/18 10:00 05/15/18 09:01 Levaquin 750 Mg Premixed Ivpb - IVPB 150 mls/hr DAILY [facility] Administration Protocol Vancomycin HCl 1,000 mg in 250 mls @ 166.667 mls/hr 05/14/18 14:30 05/15/18 02:35 Vancomycin (Pre-Docked) IVPB 166.667 mls/hr BID@0230,1430 [facility] Administration Protocol Methylprednisolone Sodium Succinate 60 mg 05/13/18 16:00 05/15/18 09:02 Solu-Medrol - IVPUSH 60 mg Q8H-IV [facility] Administration Mupirocin 1 applic 05/13/18 22:00 05/14/18 21:54 Bactroban Ointment (For Decolonization) - NS 05/18/18 21:59 1 applic BID [facility] Administration Pantoprazole Sodium 40 mg 05/13/18 16:15 05/15/18 09:02 Protonix - PO 40 mg DAILY [facility] Administration Sertraline HCl 125 mg 05/14/18 22:00 05/14/18 21:53 Zoloft - PO 125 mg HS [facility] Administration ASSESSMENT/PLAN: 52 yo F, PMH sleep apnea (c-pap at night), cryptogenic pneumonia?, p/w with, acute hypoxic respiratory failure 2/2 possible sepsis 2/2 pneumonia vs ILD Problems: acute hypoxic respiratory failure r/o sepsis leukocytosis - sepsis vs current steroid use ILD: acute onset (?) Rheumatologic (brother has RA) (?) BOOP (?) HP sleep apnea (c-pap at night) s/p 1 L NS in ED O2 as needed maintain sat >90% 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 no obvious consolidations. Poor insip effort/quality EKG in ED NSR w/ no ST ischemic changes, trop neg x2 f/u bcx, ucx, sputum cx, legionella UA, flu neg ID consult per ID: pending c/s empiric levaquin and vancomycin will send serology studies to further w/u possible causes of ILD: HIV, DEION, ANCA. RF, anti-GBM. consider Rheum consult pending lab results HIV screening negative For possible VATs Wednesday Thoracic consult FEN hold IVF replete prn regular diet ppx SQH protonix Dispo: ICU monitoring For possible VATs Wednesday Visit type - Emergency Visit Emergency Visit: No - New Patient This patient is new to me today: No - Critical Care Critical Care patient: Yes Total Critical Care Time (in minutes): 35 Critical Care Statement: The care of this patient involved high complexity decision making to prevent further life threatening deterioration of the patient 's condition and/or to evaluate & treat vital organ system(s) failure or risk of failure.
[2018-05-15 11:05] LABS: ANISOCYTOSIS 2+; MACROCYTOSIS 0; PLATELET ESTIMATE NORMAL; TEAR DROP CELLS 1+
--- NOTE | 2018-05-15 11:27 | PN ---
Progress Note, Physician - Current Medication List Current Medications: Active Medications Albuterol Sulfate (Ventolin 0.083% Nebulizer Soln -) 1 amp NEB Q6H PRN PRN Reason: SHORT OF BREATH/WHEEZING Last Admin: 05/14/18 06:17 Dose: 1 amp Albuterol/Ipratropium (Duoneb -) 1 amp NEB Q4H [facility] Last Admin: 05/15/18 07:20 Dose: 1 amp Chlorhexidine Gluconate (Hibiclens For Decolonization -) 1 applic TP HS [facility] Last Admin: 05/14/18 21:54 Dose: 1 applic Heparin Sodium (Porcine) (Heparin -) 5,000 unit SQ TID [facility] Last Admin: 05/15/18 06:55 Dose: 5,000 unit Levofloxacin (Levaquin 750 Mg Premixed Ivpb -) 750 mg in 150 mls @ 150 mls/hr IVPB DAILY [facility]; Protocol Last Admin: 05/15/18 09:01 Dose: 150 mls/hr Vancomycin HCl (Vancomycin (Pre-Docked)) 1,000 mg in 250 mls @ 166.667 mls/hr IVPB BID@0230,1430 [facility]; Protocol Last Admin: 05/15/18 02:35 Dose: 166.667 mls/hr Methylprednisolone Sodium Succinate (Solu-Medrol -) 60 mg IVPUSH Q8H-IV [facility] Last Admin: 05/15/18 09:02 Dose: 60 mg Mupirocin (Bactroban Ointment (For Decolonization) -) 1 applic NS BID [facility] Stop: 05/18/18 21:59 Last Admin: 05/14/18 21:54 Dose: 1 applic Pantoprazole Sodium (Protonix -) 40 mg PO DAILY [facility] Last Admin: 05/15/18 09:02 Dose: 40 mg Sertraline HCl (Zoloft -) 125 mg PO HS [facility] Last Admin: 05/14/18 21:53 Dose: 125 mg - Objective Vital Signs: Vital Signs Temperature 98.0 F 05/15/18 06:00 Pulse Rate 86 05/15/18 10:00 Respiratory Rate 24 H 05/15/18 10:00 Blood Pressure 116/64 05/15/18 10:00 O2 Sat by Pulse Oximetry (%) 94 L 05/15/18 10:00 Cardiovascular: Yes: Regular Rate and Rhythm Respiratory: Yes: Rhonchi Gastrointestinal: Yes: Normal Bowel Sounds, Soft Labs: CBC, BMP 05/15/18 05:30 05/15/18 05:30 INR, PTT INR 1.10 (0.83-1.09) H 05/13/18 11:51 Problem List - Problems (1) Pneumonia Assessment/Plan: --Previous w/u noted -ID consult noted -Abx per ID -Received Levaquin in ER Code(s): J18.9 - PNEUMONIA, UNSPECIFIED ORGANISM (2) Chronic lung disease Assessment/Plan: -Of unknown Etiology -Pulm on case -IV steroids -Nebs -TS consult for biopsy--VATs Code(s): J98.4 - OTHER DISORDERS OF LUNG (3) Hypoxemia Assessment/Plan: -as above Code(s): R09.02 - HYPOXEMIA (4) Sleep apnea Code(s): G47.30 - SLEEP APNEA, UNSPECIFIED (5) Chest pain Assessment/Plan: -Probbaly related to breathing-hypoxia -Echo noted-nl ef -CE negative -EKG NSR -Cardio consult noted Code(s): R07.9 - CHEST PAIN, UNSPECIFIED
[2018-05-15] MEDS: MUPIROCIN 2% TOPICAL OINTMENT FOR DECOLONIZATION NS SCH ×2 (15:51→21:04)
[2018-05-15] MEDS: CHLORHEXIDINE GLUCONATE 4% CLEANSER FOR DECOLONIZATION TP SCH (21:05)
[2018-05-15] MEDS: SERTRALINE HCL 50 MG TABLET (FP) PO SCH (21:05)
--- NOTE | 2018-05-15 23:13 | CONSULT ---
Consult Consult Specialty:: Thoracic Referred by:: Dr. Dukes Reason for Consultation:: Surgical evaluation of ILD - History of Present Illness Chief Complaint: Shortness of breath. History of Present Illness: The patient is a 52 year old female, with a significant past medical history of sleep apnea (c-pap at night), who presents to the emergency department with, shortness of breath and pneumonia. 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 Patient endorses for she was recently admitted to [facility] 05/05 for similar symptoms. As per Dr. 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 The patient notes the only changes in her lifestyle was the implementation of turmeric and she has not been cleaning her c-pap enough thus, an unknown residue. Patient endorses at home when she is off oxygen she is hypoxic to the 70s. She denies recent fevers, chills, headache or dizziness. She denies recent nausea, vomit, diarrhea or constipation. She denies recent dysuria, frequency, urgency or hematuria. She denies recent chest pain. 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 No: O2 Dependent Gastrointestinal: No: Ascites, Cancer, Constipation, Crohn's Disease, Diverticulitis, Diverticulosis, Esophageal Varices, Gastritis, GERD, GI Bleed, Hemorrhoids, Hiatal Hernia, Inflamatory Bowel Disease, Irritable Bowel Disease, Pancreatitis, Peptic Ulcer Disease, Ulcerative Colitis, Other ...LMP Comment: 5 years ago ...: No Heme/Onc: No: Anemia, B12 Deficiency, Bleeding Disorder, Cancer, Current Chemotherapy, Current Radiation Therapy, Hemochromatosis, Hypercoaguable State, Myeloproliferative Synd, Sickle Cell Disease, Sickle Cell Trait, Thrombocytopenia, Other Infectious Disease: No: AIDS, C-Diff, Herpes Zoster, HIV, MRSA, STD's, Tuberculosis, VREF, Other Psych: Yes: Depression Musculoskeletal: No: Bursitis, Chronic low back pain, Hemiparesis, Hemiplegia, Osteoarthritis, Paraplegia, Other Rheumatology: No: Fibromyalgia, Gout, Lupus, Rheumatoid Arthritis, Sarcoidosis, Vasculitis, Other ENT: No: Allergic Rhinitis, Sinusitis, Other Endocrine: No: Meeker's Disease, Alcides's Disease, Diabetes Insipidus, Diabetes Mellitus, Hyperparathyroidism, Hyperthyroidism, Hypothyroidism, Osteopenia, SIADH, Other Dermatology: No: Basal Cell, Cellulitis, Eczema, Melanoma, Psoriasis, Squamous Cell, Other - Past Surgical History Past Surgical History: Yes: None - Alcohol/Substance Use Hx Alcohol Use: No History of Substance Use: reports: None - Smoking History Smoking history: Never smoked Have you smoked in the past 12 months: No - Social History ADL: Independent History of Recent Travel: No Home Medications - Allergies Allergies/Adverse Reactions: Allergies Allergy/AdvReac Type Severity Reaction Status Date / Time amoxicillin [From Augmentin] Allergy Intermediate Nausea Verified 05/13/18 11:25 clavulanic acid Allergy Intermediate Nausea Verified 05/13/18 11:25 [From Augmentin] turmeric Allergy Intermediate Difficulty Verified 05/13/18 11:25 Breathing azithromycin [From Zithromax] Allergy Mild Rash Verified 05/13/18 11:25 cefixime [From Suprax] Allergy Mild Rash Verified 05/13/18 11:25 - Home Medications Home Medications: Ambulatory Orders Prednisone [Deltasone] 60 mg PO DAILY 05/05/18 Sertraline HCl [Zoloft] 25 mg PO HS 05/05/18 Sertraline HCl [Zoloft] 100 mg PO HS 05/05/18 Family Disease History - Family Disease History Family History: Unremarkable Family Disease History: Respiratory: Daughter (Asthma) Review of Systems - Review of Systems Constitutional: reports: No Symptoms Eyes: reports: No Symptoms HENT: reports: No Symptoms Neck: reports: No Symptoms Respiratory: reports: SOB, SOB on Exertion Gastrointestinal: reports: No Symptoms Genitourinary: reports: No Symptoms Breasts: reports: No Symptoms Reported Musculoskeletal: reports: No Symptoms Integumentary: reports: No Symptoms Neurological: reports: No Symptoms Endocrine: reports: No Symptoms Hematology/Lymphatic: reports: No Symptoms Psychiatric: reports: No Symptoms Physical Exam Vital Signs: Vital Signs Temperature 98.0 F 05/15/18 06:00 Pulse Rate 88 05/15/18 18:00 Respiratory Rate 22 H 05/15/18 18:00 Blood Pressure 114/54 L 05/15/18 18:00 O2 Sat by Pulse Oximetry (%) 96 05/15/18 16:46 Constitutional: Yes: Well Nourished Eyes: Yes: WNL HENT: Yes: WNL Neck: Yes: WNL Cardiovascular: Yes: WNL, Tachycardia Respiratory: Yes: On Nasal O2, SOB on Exertion, Tachypnea Musculoskeletal: Yes: WNL Extremities: Yes: WNL Edema: No Peripheral Pulses WNL: Yes Labs: CBC, BMP 05/15/18 05:30 05/15/18 05:30 Imaging - Results Chest X-ray: Report Reviewed (Bibasilar atelectaticchanges on CXR) Cat Scan: Report Reviewed Problem List - Problems (1) Pneumonia Code(s): J18.9 - PNEUMONIA, UNSPECIFIED ORGANISM (2) Pneumonitis Code(s): J18.9 - PNEUMONIA, UNSPECIFIED ORGANISM (3) Hypoxemia Code(s): R09.02 - HYPOXEMIA (4) Sleep apnea Code(s): G47.30 - SLEEP APNEA, UNSPECIFIED Assessment/Plan 52 y/o F has since beginning of April had increasing shortness of breath. She has shortness of breath just by walking to bathroom few steps and gets winded just by talking with drop of saturation. 2 Months ago she has been able to walk for 2-3 miles without any problems. She is on high dose prednison and abx. Plan: There is indication for lung biopsy. I have explained the risks, benefits and alternative treatments to patient and her and she accepts the surgery. Patient will be scheduled for Bronchoscopy, Right VATS and lung biopsy possible thoracotomy on05/16. Thank you for courtesy of this referral.
[2018-05-16] MEDS: ALBUTEROL SO4 2.5/IPRATROPIUM 0.5 INH SOL 3 ML VIAL.NEB. NEB SCH ×5 (03:30→20:45)
[2018-05-16] MEDS: methylPREDNISolone NA SUCC 40 MG/1 ML VIAL IVPUSH SCH ×3 (04:38→17:11)
[2018-05-16] MEDS: VANCOMYCIN 1 GRAM (PRE-DOCKED) 1,000 MG/250 ML BAG IVPB SCH ×2 (04:38→13:35)
[2018-05-16 05:49] LABS: HEMATOCRIT 39.9 % (32.4-45.2); HEMOGLOBIN 13.1 GM/dL (10.7-15.3); MCH 30.3 pg (25.7-33.7); MCHC 32.8 g/dl (32.0-36.0); MEAN CELL VOLUME 92.3 fl (80-96); MEAN PLT VOLUME 8.3 fl (7.5-11.1); PLATELET COUNT 235 K/MM3 (134-434); RBC 4.32 M/mm3 (3.60-5.2); RDW 14.8 % (11.6-15.6); WHITE BLOOD COUNT 14.1 K/mm3 (4.0-10.0)
[2018-05-16 06:17] LABS: ALBUMIN 2.4 g/dl (3.4-5.0); ALK PHOS 66 U/L (45-117); ANION GAP 9 MMOL/L (8-16); BILIRUBIN,TOTAL 0.4 mg/dL (0.2-1); BLOOD UREA NITROGEN 17 mg/dL (7-18); CALCIUM 7.8 mg/dL (8.5-10.1); CHLORIDE 105 mmol/L (98-107); CO2 26 mmol/L (21-32); CREATININE 0.7 mg/dL (0.55-1.3); GLUCOSE,RANDOM 154 mg/dL (74-106); MAGNESIUM 2.4 mg/dL (1.8-2.4); POTASSIUM 3.8 mmol/L (3.5-5.1); SGOT/AST 19 U/L (15-37); SGPT/ALT 44 U/L (13-61); SODIUM 140 mmol/L (136-145); TOT PROT 5.6 g/dl (6.4-8.2)
--- NOTE | 2018-05-16 07:33 | PN ---
Physical Exam: SUBJECTIVE: Patient seen and examined in the ICU. CPAP at night. pt feels improved, but notes that she is still desaturates when she walks to the bathroom. VATS procedure and lung biopsy on 05/18/18. No fevers or chills. OBJECTIVE: Vital Signs Period Temp Pulse Resp BP Sys/Cerrato Pulse Ox Last 24 Hr 98.1 F-98.5 F 80-99 17-25 108-127/54-64 94-97 GENERAL: AOX3 NAD on NC, talking comfortably HEENT: NCAT sclera anicteric, conjunctiva clear. No lid lag. MMM NECK: Normal range of motion, supple without lymphadenopathy, JVD, or masses. LUNGS: fine crackles at bases b/l HEART: RRR, normal S1 and S2 without m/r/g ABDOMEN: Soft, NTND, normoactive bowel sounds, no guarding, no rebound, no masses. MUSCULOSKELETAL: Normal range of motion at all joints. No bony deformities or tenderness. UPPER EXTREMITIES: 2+ pulses, warm, well-perfused. No cyanosis. No clubbing. Cap refill <2 seconds. No peripheral edema. LOWER EXTREMITIES: 2+ pulses, warm, well-perfused. No calf tenderness. No peripheral edema. NEUROLOGICAL: Cranial nerves II-XII intact. Normal speech. PSYCHIATRIC: Cooperative. Good eye contact. Appropriate mood and affect. SKIN: Warm, dry, normal turgor, no rashes or lesions noted. Laboratory Results - last 24 hr 05/15/18 05/16/18 05/16/18 05:30 05:15 05:15 WBC 14.1 H RBC 4.32 Hgb 13.1 Hct 39.9 MCV 92.3 MCH 30.3 MCHC 32.8 RDW 14.8 Plt Count 235 MPV 8.3 Absolute Neuts (auto) 12.1 H Neutrophils % 85.7 H Neutrophils % (Manual) 81.4 Band Neutrophils % 6.2 Lymphocytes % 8.8 D Lymphocytes % (Manual) 2.1 L D Monocytes % 5.3 Monocytes % (Manual) 5 Eosinophils % 0.1 D Eosinophils % (Manual) 0.0 Basophils % 0.1 Basophils % (Manual) 0.0 Myelocytes % (Man) 0 D Promyelocytes % (Man) 0 Blast Cells % (Manual) 0 Nucleated RBC % 0 Metamyelocytes 0 D Hypochromia 0 Platelet Estimate Normal Platelet Comment Present Polychromasia 1+ Poikilocytosis 0 Anisocytosis 2+ Microcytosis 2+ Macrocytosis 0 Tear Drop Cells 1+ Sodium 140 Potassium 3.8 Chloride 105 Carbon Dioxide 26 Anion Gap 9 BUN 17 Creatinine 0.7 Creat Clearance w eGFR > 60 Random Glucose 154 H Calcium 7.8 L Phosphorus 4.0 Magnesium 2.4 Total Bilirubin 0.4 AST 19 ALT 44 Alkaline Phosphatase 66 Total Protein 5.6 L Albumin 2.4 L Active Medications Generic Name Dose Route Start Last Admin Trade Name Freq PRN Reason Stop Dose Admin Albuterol Sulfate 1 amp 05/13/18 15:58 05/14/18 06:17 Ventolin 0.083% Nebulizer Soln - NEB 1 amp Q6H PRN Administration SHORT OF BREATH/WHEEZING Albuterol/Ipratropium 1 amp 05/13/18 16:00 05/16/18 03:30 Duoneb - NEB Not Given Q4H [facility] Chlorhexidine Gluconate 1 applic 05/13/18 22:00 05/15/18 21:05 Hibiclens For Decolonization - TP 1 applic HS [facility] Administration Heparin Sodium (Porcine) 5,000 unit 05/13/18 22:00 05/15/18 21:05 Heparin - SQ 5,000 unit TID [facility] Administration Levofloxacin 750 mg in 150 mls @ 150 mls/hr 05/15/18 10:00 05/15/18 09:01 Levaquin 750 Mg Premixed Ivpb - IVPB 150 mls/hr DAILY [facility] Administration Protocol Vancomycin HCl 1,000 mg in 250 mls @ 166.667 mls/hr 05/14/18 14:30 05/16/18 04:38 Vancomycin (Pre-Docked) IVPB 166.667 mls/hr BID@0230,1430 [facility] Administration Protocol Methylprednisolone Sodium Succinate 60 mg 05/13/18 16:00 05/16/18 04:38 Solu-Medrol - IVPUSH 60 mg Q8H-IV [facility] Administration Mupirocin 1 applic 05/13/18 22:00 05/15/18 21:04 Bactroban Ointment (For Decolonization) - NS 05/18/18 21:59 1 applic BID [facility] Administration Pantoprazole Sodium 40 mg 05/13/18 16:15 05/15/18 09:02 Protonix - PO 40 mg DAILY [facility] Administration Sertraline HCl 125 mg 05/14/18 22:00 05/15/18 21:05 Zoloft - PO 125 mg HS [facility] Administration ASSESSMENT/PLAN: 52 yo F, PMH sleep apnea (c-pap at night), cryptogenic pneumonia?, p/w with, acute hypoxic respiratory failure 2/2 possible sepsis 2/2 pneumonia vs ILD Problems: acute hypoxic respiratory failure r/o sepsis leukocytosis - sepsis vs current steroid use ILD: acute onset (?) Rheumatologic (brother has RA) (?) BOOP (?) HP sleep apnea (c-pap at night) s/p 1 L NS in ED O2 as needed to keep SpO2 >90% maintain sat >90% c-pap at conveyor monitor H/H c/w solumedrol 60q8h bronchodilators Maintain MAP >65 cardiac monitoring echo 05/03/18 - nl CT 05/09/18 - ILD CXR 05/14/18- increased lung markings in lower lobes. no obvious consolidations. Poor insip effort/quality EKG in ED NSR w/ no ST ischemic changes, trop neg x2 bcx, sputum cx, legionella, UA, flu neg Ucx contaminated, no need to rpt at this time. rpt if spikes fever ID consult per ID: levaquin and vancomycin f/u serology studies to further w/u possible causes of ILD: DEION, ANCA, anti- GBM. HIV neg RF nl consider Rheum consult pending lab results VATS procedure and lung biopsy on 05/18/18. Thoracic consult f/u Chest CT FEN hold IVF replete prn regular diet, NPO starting 05/17/18 at midnight for VATS ppx SQH, hold heparin SQ 05/17/18 at midnight. protonix Dispo: ICU monitoring patient for VATS procedure and lung biopsy on 05/18/18. Will send PT/INR, PT, T&S, CXR on 05/18/18 AM Visit type - Emergency Visit Emergency Visit: Yes ED Registration Date: 05/13/18 Care time: The patient presented to the Emergency Department on the above date and was hospitalized for further evaluation of their emergent condition. - New Patient This patient is new to me today: Yes Date on this admission: 05/16/18 - Critical Care Critical Care patient: Yes Total Critical Care Time (in minutes): 37 Critical Care Statement: The care of this patient involved high complexity decision making to prevent further life threatening deterioration of the patient 's condition and/or to evaluate & treat vital organ system(s) failure or risk of failure.
[2018-05-16] MEDS ORDERED: SODIUM CHLORIDE NASAL SPRAY 44 ML BOTTLE NS PRN (08:51)
[2018-05-16 09:22] LABS: PLATELET ESTIMATE ADEQUATE
[2018-05-16] MEDS: HEPARIN NA (PORCINE) 5,000 UNITS/ML 1ML VIAL SQ SCH ×3 (09:32→21:50)
[2018-05-16] MEDS: PANTOPRAZOLE 40 MG TABLET (FP) PO SCH (09:33)
--- NOTE | 2018-05-16 11:50 | PN ---
Teaching Attending Note Name of Resident: Cuong Pantoja ATTENDING PHYSICIAN STATEMENT I saw and evaluated the patient. I reviewed the resident's note and discussed the case with the resident. I agree with the resident's findings and plan as documented. SUBJECTIVE: Pt seen and examined in the ICU. Rapid desaturations with minimal exertion. + nonproductive cough. No fevers or chills. OBJECTIVE: Vital Signs Period Temp Pulse Resp BP Sys/Cerrato Pulse Ox Last 24 Hr 97.6 F-98.5 F 80-99 17-27 108-134/54-72 90-97 Intake & Output 05/13/18 05/14/18 05/15/18 05/16/18 23:59 23:59 23:59 23:59 Intake Total 540 3000 1900 350 Output Total 500 1000 1200 900 Balance 40 2000 700 -550 Weight 99.79 kg 98.43 kg 99.7 kg Gen: NAD at rest Heart: RRR Lung: bibasilar fine inspiratory rales Abd: soft, nontender Ext: no edema CBC, BMP 05/16/18 05:15 05/16/18 05:15 Active Medications Albuterol Sulfate (Ventolin 0.083% Nebulizer Soln -) 1 amp NEB Q6H PRN PRN Reason: SHORT OF BREATH/WHEEZING Last Admin: 05/14/18 06:17 Dose: 1 amp Albuterol/Ipratropium (Duoneb -) 1 amp NEB Q4H [facility] Last Admin: 05/16/18 07:25 Dose: 1 amp Chlorhexidine Gluconate (Hibiclens For Decolonization -) 1 applic TP HS [facility] Last Admin: 05/15/18 21:05 Dose: 1 applic Heparin Sodium (Porcine) (Heparin -) 5,000 unit SQ TID [facility] Last Admin: 05/16/18 09:32 Dose: Not Given Levofloxacin (Levaquin 750 Mg Premixed Ivpb -) 750 mg in 150 mls @ 150 mls/hr IVPB DAILY [facility]; Protocol Last Admin: 05/16/18 09:33 Dose: 150 mls/hr Vancomycin HCl (Vancomycin (Pre-Docked)) 1,000 mg in 250 mls @ 166.667 mls/hr IVPB BID@0230,1430 [facility]; Protocol Last Admin: 05/16/18 04:38 Dose: 166.667 mls/hr Methylprednisolone Sodium Succinate (Solu-Medrol -) 60 mg IVPUSH Q8H-IV [facility] Last Admin: 05/16/18 09:33 Dose: 60 mg Mupirocin (Bactroban Ointment (For Decolonization) -) 1 applic NS BID [facility] Stop: 05/18/18 21:59 Last Admin: 05/15/18 21:04 Dose: 1 applic Pantoprazole Sodium (Protonix -) 40 mg PO DAILY [facility] Last Admin: 05/16/18 09:33 Dose: 40 mg Sertraline HCl (Zoloft -) 125 mg PO HS [facility] Last Admin: 05/15/18 21:05 Dose: 125 mg Sodium Chloride ([place] Nasal [place] -) 2 spray NS QID PRN PRN Reason: NASAL CONGESTION ASSESSMENT AND PLAN: Acute Hypoxic Respiratory Failure Interstitial Lung Disease Acute Pneumonitis r/o Sepsis Obstructive Sleep Apnea - continue medrol at current dose - inhaled bronchodilators - O2 to keep SpO2 >90% - on empiric antibiotics - f/u cultures - f/u pending serologies - for VATS 05/18 - DVT/GI prophylaxis
[2018-05-16] MEDS: MUPIROCIN 2% TOPICAL OINTMENT FOR DECOLONIZATION NS SCH ×2 (13:34→21:56)
--- NOTE | 2018-05-16 13:46 | PN ---
Progress Note, Physician Chief Complaint: patient seen in iCu schedule for VATS and lung biopsy tmw rapid desaturation and drop in oxygen when she moves around - Current Medication List Current Medications: Active Medications Albuterol Sulfate (Ventolin 0.083% Nebulizer Soln -) 1 amp NEB Q6H PRN PRN Reason: SHORT OF BREATH/WHEEZING Last Admin: 05/14/18 06:17 Dose: 1 amp Albuterol/Ipratropium (Duoneb -) 1 amp NEB Q4H [facility] Last Admin: 05/16/18 07:25 Dose: 1 amp Chlorhexidine Gluconate (Hibiclens For Decolonization -) 1 applic TP HS [facility] Last Admin: 05/15/18 21:05 Dose: 1 applic Heparin Sodium (Porcine) (Heparin -) 5,000 unit SQ TID [facility] Last Admin: 05/16/18 13:34 Dose: 5,000 unit Levofloxacin (Levaquin 750 Mg Premixed Ivpb -) 750 mg in 150 mls @ 150 mls/hr IVPB DAILY [facility]; Protocol Last Admin: 05/16/18 09:33 Dose: 150 mls/hr Vancomycin HCl (Vancomycin (Pre-Docked)) 1,000 mg in 250 mls @ 166.667 mls/hr IVPB BID@0230,1430 [facility]; Protocol Last Admin: 05/16/18 13:35 Dose: 166.667 mls/hr Methylprednisolone Sodium Succinate (Solu-Medrol -) 60 mg IVPUSH Q8H-IV [facility] Last Admin: 05/16/18 09:33 Dose: 60 mg Mupirocin (Bactroban Ointment (For Decolonization) -) 1 applic NS BID [facility] Stop: 05/18/18 21:59 Last Admin: 05/16/18 13:34 Dose: 1 applic Pantoprazole Sodium (Protonix -) 40 mg PO DAILY [facility] Last Admin: 05/16/18 09:33 Dose: 40 mg Sertraline HCl (Zoloft -) 125 mg PO HS [facility] Last Admin: 05/15/18 21:05 Dose: 125 mg Sodium Chloride ([place] Nasal [place] -) 2 spray NS QID PRN PRN Reason: NASAL CONGESTION - Objective Vital Signs: Vital Signs Temperature 97.6 F 05/16/18 10:00 Pulse Rate 103 H 12/10/18 12:00 Respiratory Rate 30 H 05/16/18 12:00 Blood Pressure 126/61 05/16/18 12:00 O2 Sat by Pulse Oximetry (%) 92 L 05/16/18 07:45 Constitutional: Yes: Calm Cardiovascular: Yes: Regular Rate and Rhythm, S1, S2 Respiratory: Yes: CTA Bilaterally Gastrointestinal: Yes: Normal Bowel Sounds, Soft Labs: CBC, BMP 05/16/18 05:15 05/16/18 05:15 INR, PTT INR 1.10 (0.83-1.09) H 05/13/18 11:51 Problem List - Problems (1) Hypoxemia Assessment/Plan: iv abx iv medrol VATS / lung biopsy on wednesday leukocytosis secondary to steroids awaiting chest ct report Code(s): R09.02 - HYPOXEMIA
[2018-05-16] MEDS: SERTRALINE HCL 50 MG TABLET (FP) PO SCH (21:51)
[2018-05-16] MEDS: CHLORHEXIDINE GLUCONATE 4% CLEANSER FOR DECOLONIZATION TP SCH (23:30)
[2018-05-17] MEDS: methylPREDNISolone NA SUCC 40 MG/1 ML VIAL IVPUSH SCH ×3 (01:45→17:17)
[2018-05-17] MEDS: VANCOMYCIN 1 GRAM (PRE-DOCKED) 1,000 MG/250 ML BAG IVPB SCH ×2 (01:46→14:14)
[2018-05-17] MEDS: ALBUTEROL SO4 2.5/IPRATROPIUM 0.5 INH SOL 3 ML VIAL.NEB. NEB SCH ×6 (04:00→20:35)
[2018-05-17] MEDS: ALBUTEROL SO4 0.083% IH SOL 2.5 MG/3 ML VIAL.NEB. NEB PRN (06:00)
[2018-05-17] MEDS: HEPARIN NA (PORCINE) 5,000 UNITS/ML 1ML VIAL SQ SCH ×3 (06:10→21:38)
--- NOTE | 2018-05-17 07:37 | PN ---
Physical Exam: SUBJECTIVE: Patient seen and examined in the ICU. CPAP at night. pt feels improved, but notes that she is still desaturates when she walks to the bathroom. VATS procedure and lung biopsy on 05/18/18. No fevers or chills. OBJECTIVE: Vital Signs Period Temp Pulse Resp BP Sys/Cerrato Pulse Ox Last 24 Hr 97.6 F-99.3 F 86-112 19-30 104-144/55-74 90-93 GENERAL: AOX3 NAD on NC, talking comfortably HEENT: NCAT sclera anicteric, conjunctiva clear. No lid lag. MMM NECK: Normal range of motion, supple without lymphadenopathy, JVD, or masses. LUNGS: fine crackles at bases b/l HEART: RRR, normal S1 and S2 without m/r/g ABDOMEN: Soft, NTND, +BS, no guarding, no rebound, no masses. MUSCULOSKELETAL: Normal range of motion at all joints. No bony deformities or tenderness. UPPER EXTREMITIES: 2+ pulses, warm, well-perfused. No cyanosis. No clubbing. Cap refill <2 seconds. No peripheral edema. LOWER EXTREMITIES: 2+ pulses, warm, well-perfused. No calf tenderness. No peripheral edema. NEUROLOGICAL: Cranial nerves II-XII intact. Normal speech. PSYCHIATRIC: Cooperative. Good eye contact. Appropriate mood and affect. SKIN: Warm, dry, normal turgor, no rashes or lesions noted. Laboratory Results - last 24 hr 05/16/18 05/16/18 05:15 05:15 Total Counted 100 Neutrophils % Rheumatology Nurse Neutrophils % (Manual) No Result Required. 84.0 H Band Neutrophils % 1.0 Lymphocytes % Rheumatology Nurse Lymphocytes % (Manual) 7.0 L D Monocytes % Rheumatology Nurse Monocytes % (Manual) 6 Eosinophils % Rheumatology Nurse Basophils % Rheumatology Nurse Platelet Estimate Adequate Active Medications Generic Name Dose Route Start Last Admin Trade Name Freq PRN Reason Stop Dose Admin Albuterol Sulfate 1 amp 05/13/18 15:58 05/17/18 06:00 Ventolin 0.083% Nebulizer Soln - NEB 1 amp Q6H PRN Administration SHORT OF BREATH/WHEEZING Albuterol/Ipratropium 1 amp 05/13/18 16:00 05/17/18 04:00 Duoneb - NEB Not Given Q4H [facility] Chlorhexidine Gluconate 1 applic 05/13/18 22:00 12/10/18 23:30 Hibiclens For Decolonization - TP Not Given HS [facility] Heparin Sodium (Porcine) 5,000 unit 05/13/18 22:00 05/17/18 06:10 Heparin - SQ 5,000 unit TID [facility] Administration Levofloxacin 750 mg in 150 mls @ 150 mls/hr 05/15/18 10:00 05/16/18 09:33 Levaquin 750 Mg Premixed Ivpb - IVPB 150 mls/hr DAILY [facility] Administration Protocol Vancomycin HCl 1,000 mg in 250 mls @ 166.667 mls/hr 05/14/18 14:30 05/17/18 01:46 Vancomycin (Pre-Docked) IVPB 166.667 mls/hr BID@0230,1430 [facility] Administration Protocol Methylprednisolone Sodium Succinate 60 mg 05/13/18 16:00 05/17/18 01:45 Solu-Medrol - IVPUSH 60 mg Q8H-IV [facility] Administration Mupirocin 1 applic 05/13/18 22:00 05/16/18 21:56 Bactroban Ointment (For Decolonization) - NS 05/18/18 21:59 1 applic BID [facility] Administration Pantoprazole Sodium 40 mg 05/13/18 16:15 05/16/18 09:33 Protonix - PO 40 mg DAILY [facility] Administration Sertraline HCl 125 mg 05/14/18 22:00 05/16/18 21:51 Zoloft - PO 125 mg HS [facility] Administration Sodium Chloride 2 spray 05/16/18 08:51 [place] Nasal [place] - NS QID PRN NASAL CONGESTION ASSESSMENT/PLAN: 52 yo F, PMH sleep apnea (c-pap at night), cryptogenic pneumonia?, p/w with, acute hypoxic respiratory failure 2/2 possible sepsis 2/2 pneumonia vs ILD Problems: acute hypoxic respiratory failure r/o sepsis leukocytosis - sepsis vs current steroid use ILD: acute onset (?) Rheumatologic (brother has RA) (?) BOOP (?) HP sleep apnea (c-pap at night) s/p 1 L NS in ED O2 as needed to keep SpO2 >90% 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 no obvious consolidations. Poor insip effort/quality EKG in ED NSR w/ no ST ischemic changes, trop neg x2 bcx, sputum cx, legionella, UA, flu neg f/u RSV Ucx contaminated, no need to rpt at this time. rpt if spikes fever ID consult per ID: levaquin and vancomycin f/u serology studies to further w/u possible causes of ILD: DEION, ANCA, anti- GBM. HIV neg RF nl consider Rheum consult pending lab results VATS procedure and lung biopsy on 05/18/18. Will send PT/INR, PTT, T&S, CXR on 05/18/18 AM Thoracic consult f/u Chest CT FEN hold IVF replete prn regular diet, NPO starting 05/17/18 at midnight for VATS ppx SQH, hold heparin SQ 05/17/18 at midnight and start SCDs protonix Dispo: ICU monitoring patient for VATS procedure and lung biopsy on 05/18/18. Will send PT/INR, PT, T&S, CXR on 05/18/18 AM Visit type - Emergency Visit Emergency Visit: Yes ED Registration Date: 05/13/18 Care time: The patient presented to the Emergency Department on the above date and was hospitalized for further evaluation of their emergent condition. - New Patient This patient is new to me today: Yes Date on this admission: 05/17/18 - Critical Care Critical Care patient: Yes Total Critical Care Time (in minutes): 38 Critical Care Statement: The care of this patient involved high complexity decision making to prevent further life threatening deterioration of the patient 's condition and/or to evaluate & treat vital organ system(s) failure or risk of failure.
[2018-05-17] MEDS: MUPIROCIN 2% TOPICAL OINTMENT FOR DECOLONIZATION NS SCH ×2 (09:28→23:05)
[2018-05-17] MEDS: PANTOPRAZOLE 40 MG TABLET (FP) PO SCH (09:28)
--- NOTE | 2018-05-17 09:36 | PN ---
Progress Note, Physician - Current Medication List Current Medications: Active Medications Albuterol Sulfate (Ventolin 0.083% Nebulizer Soln -) 1 amp NEB Q6H PRN PRN Reason: SHORT OF BREATH/WHEEZING Last Admin: 05/17/18 06:00 Dose: 1 amp Albuterol/Ipratropium (Duoneb -) 1 amp NEB Q4H [facility] Last Admin: 05/17/18 07:20 Dose: Not Given Chlorhexidine Gluconate (Hibiclens For Decolonization -) 1 applic TP HS [facility] Last Admin: 05/16/18 23:30 Dose: Not Given Heparin Sodium (Porcine) (Heparin -) 5,000 unit SQ TID [facility] Last Admin: 05/17/18 06:10 Dose: 5,000 unit Levofloxacin (Levaquin 750 Mg Premixed Ivpb -) 750 mg in 150 mls @ 150 mls/hr IVPB DAILY [facility]; Protocol Last Admin: 05/17/18 09:28 Dose: 150 mls/hr Vancomycin HCl (Vancomycin (Pre-Docked)) 1,000 mg in 250 mls @ 166.667 mls/hr IVPB BID@0230,1430 [facility]; Protocol Last Admin: 05/17/18 01:46 Dose: 166.667 mls/hr Methylprednisolone Sodium Succinate (Solu-Medrol -) 60 mg IVPUSH Q8H-IV [facility] Last Admin: 05/17/18 09:28 Dose: 60 mg Mupirocin (Bactroban Ointment (For Decolonization) -) 1 applic NS BID [facility] Stop: 05/18/18 21:59 Last Admin: 05/17/18 09:28 Dose: 1 applic Pantoprazole Sodium (Protonix -) 40 mg PO DAILY [facility] Last Admin: 05/17/18 09:28 Dose: 40 mg Sertraline HCl (Zoloft -) 125 mg PO HS [facility] Last Admin: 05/16/18 21:51 Dose: 125 mg Sodium Chloride ([place] Nasal [place] -) 2 spray NS QID PRN PRN Reason: NASAL CONGESTION - Objective Vital Signs: Vital Signs Temperature 98.3 F 05/17/18 06:00 Pulse Rate 105 H 05/17/18 08:00 Respiratory Rate 22 H 05/17/18 08:00 Blood Pressure 121/67 05/17/18 08:00 O2 Sat by Pulse Oximetry (%) 92 L 05/17/18 08:39 Cardiovascular: Yes: Regular Rate and Rhythm Respiratory: Yes: On Nasal O2, Rhonchi Gastrointestinal: Yes: Normal Bowel Sounds, Soft Labs: CBC, BMP 05/16/18 05:15 05/16/18 05:15 INR, PTT INR 1.10 (0.83-1.09) H 05/13/18 11:51 Problem List - Problems (1) Pneumonia Assessment/Plan: --Previous w/u noted -ID consult noted -Abx per ID -Received Levaquin in ER Code(s): J18.9 - PNEUMONIA, UNSPECIFIED ORGANISM (2) Chronic lung disease Assessment/Plan: -Of unknown Etiology -Pulm on case -IV steroids -Nebs -TS consult for biopsy--VATs Code(s): J98.4 - OTHER DISORDERS OF LUNG (3) Hypoxemia Assessment/Plan: -as above Code(s): R09.02 - HYPOXEMIA (4) Sleep apnea Code(s): G47.30 - SLEEP APNEA, UNSPECIFIED (5) Chest pain Code(s): R07.9 - CHEST PAIN, UNSPECIFIED
--- NOTE | 2018-05-17 11:19 | PN ---
Teaching Attending Note Name of Resident: Cuong Pantoja ATTENDING PHYSICIAN STATEMENT I saw and evaluated the patient. I reviewed the resident's note and discussed the case with the resident. I agree with the resident's findings and plan as documented. SUBJECTIVE: Pt seen and examined in the ICU. Feels ok at rest but still short of breath with desaturations with minimal exertion. +cough with thick clear sputum. No fevers or chills. CT chest done yesterday showing basilar progressive disease. OBJECTIVE: Vital Signs Period Temp Pulse Resp BP Sys/Cerrato Pulse Ox Last 24 Hr 98.2 F-99.3 F 86-112 19-94 104-144/55-74 91-93 Intake & Output 05/14/18 05/15/18 05/16/18 05/17/18 23:59 23:59 23:59 23:59 Intake Total 3000 1900 1700 350 Output Total 1000 1200 900 Balance 2000 700 800 350 Weight 98.43 kg 99.337 kg 97.386 kg Gen: tachypneic with speaking Heart: RRR Lung: bibasilar fine rales Abd: soft, nontender Ext: no edema CBC, BMP 05/16/18 05:15 05/16/18 05:15 Active Medications Albuterol Sulfate (Ventolin 0.083% Nebulizer Soln -) 1 amp NEB Q6H PRN PRN Reason: SHORT OF BREATH/WHEEZING Last Admin: 05/17/18 06:00 Dose: 1 amp Albuterol/Ipratropium (Duoneb -) 1 amp NEB Q4H [facility] Last Admin: 05/17/18 07:20 Dose: Not Given Chlorhexidine Gluconate (Hibiclens For Decolonization -) 1 applic TP HS [facility] Last Admin: 05/16/18 23:30 Dose: Not Given Heparin Sodium (Porcine) (Heparin -) 5,000 unit SQ TID [facility] Stop: 05/17/18 22:01 Last Admin: 05/17/18 06:10 Dose: 5,000 unit Levofloxacin (Levaquin 750 Mg Premixed Ivpb -) 750 mg in 150 mls @ 150 mls/hr IVPB DAILY [facility]; Protocol Last Admin: 05/17/18 09:28 Dose: 150 mls/hr Vancomycin HCl (Vancomycin (Pre-Docked)) 1,000 mg in 250 mls @ 166.667 mls/hr IVPB BID@0230,1430 [facility]; Protocol Last Admin: 05/17/18 01:46 Dose: 166.667 mls/hr Methylprednisolone Sodium Succinate (Solu-Medrol -) 60 mg IVPUSH Q8H-IV [facility] Last Admin: 05/17/18 09:28 Dose: 60 mg Mupirocin (Bactroban Ointment (For Decolonization) -) 1 applic NS BID [facility] Stop: 05/18/18 21:59 Last Admin: 05/17/18 09:28 Dose: 1 applic Pantoprazole Sodium (Protonix -) 40 mg PO DAILY [facility] Last Admin: 05/17/18 09:28 Dose: 40 mg Sertraline HCl (Zoloft -) 125 mg PO HS [facility] Last Admin: 05/16/18 21:51 Dose: 125 mg Sodium Chloride ([place] Nasal [place] -) 2 spray NS QID PRN PRN Reason: NASAL CONGESTION ASSESSMENT AND PLAN: Acute Hypoxic Respiratory Failure Interstitial Lung Disease Acute Pneumonitis r/o Sepsis Obstructive Sleep Apnea - continue medrol at current dose - inhaled bronchodilators - O2 to keep SpO2 >90% - on empiric antibiotics - f/u cultures - f/u pending serologies - for VATS 05/18 - DVT/GI prophylaxis
[2018-05-17] MEDS: SERTRALINE HCL 50 MG TABLET (FP) PO SCH (21:38)
[2018-05-17] MEDS: CHLORHEXIDINE GLUCONATE 4% CLEANSER FOR DECOLONIZATION TP SCH (23:05)
[2018-05-18] MEDS: VANCOMYCIN 1 GRAM (PRE-DOCKED) 1,000 MG/250 ML BAG IVPB SCH ×2 (01:49→17:23)
[2018-05-18] MEDS: methylPREDNISolone NA SUCC 40 MG/1 ML VIAL IVPUSH SCH ×3 (01:49→17:28)
[2018-05-18] MEDS: ALBUTEROL SO4 2.5/IPRATROPIUM 0.5 INH SOL 3 ML VIAL.NEB. NEB SCH ×6 (04:00→21:00)
[2018-05-18 06:04] LABS: BASO % 0.3 % (0-2.0); HEMATOCRIT 42.5 % (32.4-45.2); LYMPH % 6.3 % (8-40); MCH 30.4 pg (25.7-33.7); MCHC 32.9 g/dl (32.0-36.0); MEAN CELL VOLUME 92.5 fl (80-96); MEAN PLT VOLUME 7.7 fl (7.5-11.1); MONO % 4.8 % (3.8-10.2); NEUT % 88.6 % (42.8-82.8); PLATELET COUNT 221 K/MM3 (134-434); RBC 4.59 M/mm3 (3.60-5.2); RDW 14.7 % (11.6-15.6); WHITE BLOOD COUNT 13.3 K/mm3 (4.0-10.0)
[2018-05-18 06:19] LABS: INR 0.98 (0.83-1.09); PROTHROMBIN TIME (PATIENT) 11.6 SEC (9.7-13.0)
[2018-05-18 06:22] LABS: ACTIVATED PTT 22.1 SECONDS (25.2-36.5)
[2018-05-18 06:29] LABS: ALBUMIN 2.6 g/dl (3.4-5.0); ALK PHOS 61 U/L (45-117); ANION GAP 9 MMOL/L (8-16); BILIRUBIN,TOTAL 0.5 mg/dL (0.2-1); BLOOD UREA NITROGEN 20 mg/dL (7-18); CALCIUM 8.5 mg/dL (8.5-10.1); CHLORIDE 102 mmol/L (98-107); CO2 28 mmol/L (21-32); CREATININE 0.7 mg/dL (0.55-1.3); GLUCOSE,RANDOM 126 mg/dL (74-106); MAGNESIUM 2.7 mg/dL (1.8-2.4); PHOSPHOROUS 4.9 mg/dL (2.5-4.9); POTASSIUM 4.3 mmol/L (3.5-5.1); SGOT/AST 15 U/L (15-37); SGPT/ALT 41 U/L (13-61); SODIUM 139 mmol/L (136-145); TOT PROT 5.8 g/dl (6.4-8.2)
--- NOTE | 2018-05-18 07:32 | PN ---
Physical Exam: SUBJECTIVE: Patient seen and examined in the ICU. CPAP at night. pt feels improved, but notes that she still desaturates when she walks to the bathroom. VATS procedure and lung biopsy today. No fevers or chills. OBJECTIVE: Vital Signs Period Temp Pulse Resp BP Sys/Cerrato Pulse Ox Last 24 Hr 98.2 F-98.9 F 74-114 20-94 101-131/60-72 91-95 GENERAL: AOX3 NAD on NC, talking comfortably HEENT: NCAT sclera anicteric, conjunctiva clear. No lid lag. MMM NECK: Normal range of motion, supple without lymphadenopathy, JVD, or masses. LUNGS: fine crackles at bases b/l HEART: RRR, normal S1 and S2 without m/r/g ABDOMEN: Soft, NTND, normoactive bowel sounds, no guarding, no rebound, no masses. MUSCULOSKELETAL: Normal range of motion at all joints. No bony deformities or tenderness. UPPER EXTREMITIES: 2+ pulses, warm, well-perfused. No cyanosis. No clubbing. Cap refill <2 seconds. No peripheral edema. LOWER EXTREMITIES: 2+ pulses, warm, well-perfused. No calf tenderness. No peripheral edema. NEUROLOGICAL: Cranial nerves II-XII intact. Normal speech. PSYCHIATRIC: Cooperative. Good eye contact. Appropriate mood and affect. SKIN: Warm, dry, normal turgor, no rashes or lesions noted. Laboratory Results - last 24 hr 05/17/18 05/18/18 05/18/18 16:50 05:30 05:30 WBC RBC Hgb Hct MCV MCH MCHC RDW Plt Count MPV Absolute Neuts (auto) Neutrophils % Lymphocytes % Monocytes % Eosinophils % Basophils % Nucleated RBC % PT with INR 11.60 INR 0.98 PTT (Actin FS) 22.1 L Sodium Potassium Chloride Carbon Dioxide Anion Gap BUN Creatinine Creat Clearance w eGFR Random Glucose Calcium Phosphorus Magnesium Total Bilirubin AST ALT Alkaline Phosphatase Total Protein Albumin Vancomycin Pre-Dose 19.2 Blood Type O POSITIVE Antibody Screen Negative 05/18/18 05/18/18 05:30 05:30 WBC 13.3 H RBC 4.59 Hgb 14.0 Hct 42.5 MCV 92.5 MCH 30.4 MCHC 32.9 RDW 14.7 Plt Count 221 MPV 7.7 Absolute Neuts (auto) 11.7 H Neutrophils % 88.6 H Lymphocytes % 6.3 L Monocytes % 4.8 Eosinophils % 0.0 Basophils % 0.3 Nucleated RBC % 0 PT with INR INR PTT (Actin FS) Sodium 139 Potassium 4.3 Chloride 102 Carbon Dioxide 28 Anion Gap 9 BUN 20 H Creatinine 0.7 Creat Clearance w eGFR > 60 Random Glucose 126 H Calcium 8.5 Phosphorus 4.9 Magnesium 2.7 H Total Bilirubin 0.5 AST 15 ALT 41 Alkaline Phosphatase 61 Total Protein 5.8 L Albumin 2.6 L Vancomycin Pre-Dose Blood Type Antibody Screen Active Medications Generic Name Dose Route Start Last Admin Trade Name Freq PRN Reason Stop Dose Admin Albuterol Sulfate 1 amp 05/13/18 15:58 05/17/18 06:00 Ventolin 0.083% Nebulizer Soln - NEB 1 amp Q6H PRN Administration SHORT OF BREATH/WHEEZING Albuterol/Ipratropium 1 amp 05/13/18 16:00 05/18/18 07:02 Duoneb - NEB 1 amp Q4H [facility] Administration Chlorhexidine Gluconate 1 applic 05/13/18 22:00 05/17/18 23:05 Hibiclens For Decolonization - TP Not Given HS K[facility] Levofloxacin 750 mg in 150 mls @ 150 mls/hr 05/15/18 10:00 05/17/18 09:28 Levaquin 750 Mg Premixed Ivpb - IVPB 150 mls/hr DAILY [facility] Administration Protocol Vancomycin HCl 1,000 mg in 250 mls @ 166.667 mls/hr 05/14/18 14:30 05/18/18 01:49 Vancomycin (Pre-Docked) IVPB 166.667 mls/hr BID@0230,1430 [facility] Administration Protocol Methylprednisolone Sodium Succinate 60 mg 05/13/18 16:00 05/18/18 01:49 Solu-Medrol - IVPUSH 60 mg Q8H-IV [facility] Administration Mupirocin 1 applic 05/13/18 22:00 05/17/18 23:05 Bactroban Ointment (For Decolonization) - NS 05/18/18 21:59 Not Given BID [facility] Pantoprazole Sodium 40 mg 05/13/18 16:15 05/17/18 09:28 Protonix - PO 40 mg DAILY [facility] Administration Sertraline HCl 125 mg 05/14/18 22:00 05/17/18 21:38 Zoloft - PO 125 mg HS [facility] Administration Sodium Chloride 2 spray 05/16/18 08:51 [place] Nasal [place] - NS QID PRN NASAL CONGESTION ASSESSMENT/PLAN: 52 yo F, PMH sleep apnea (c-pap at night), cryptogenic pneumonia?, p/w with, acute hypoxic respiratory failure 2/2 possible sepsis 2/2 pneumonia vs ILD Problems: acute hypoxic respiratory failure r/o sepsis leukocytosis - sepsis vs current steroid use ILD: acute onset (?) Rheumatologic (brother has RA) (?) BOOP (?) HP sleep apnea (c-pap at night) s/p 1 L NS in ED O2 as needed to keep SpO2 >90% c-pap at electronic device monitor H/H c/w solumedrol 60q8h bronchodilators Maintain MAP >65 cardiac monitoring echo 05/03/18 - nl CT 05/09/18 - ILD CXR 05/14/18- increased lung markings in lower lobes. no obvious consolidations. Poor insip effort/quality EKG in ED NSR w/ no ST ischemic changes, trop neg x2 bcx, sputum cx, legionella, UA, flu neg Ucx contaminated, no need to rpt at this time. rpt if spikes fever ID consult per ID: levaquin and vancomycin f/u serology studies to further w/u possible causes of ILD: DEION, ANCA, anti- GBM. HIV neg RF nl consider Rheum consult pending lab results VATS procedure and lung biopsy today Thoracic consult f/u Chest CT FEN hold IVF replete prn NPO for VATS ppx SCDs, SQH held for procedure protonix Dispo: ICU monitoring patient for VATS procedure and lung biopsy today Visit type - Emergency Visit Emergency Visit: Yes ED Registration Date: 05/13/18 Care time: The patient presented to the Emergency Department on the above date and was hospitalized for further evaluation of their emergent condition. - New Patient This patient is new to me today: Yes Date on this admission: 05/18/18 - Critical Care Critical Care patient: Yes Total Critical Care Time (in minutes): 37 Critical Care Statement: The care of this patient involved high complexity decision making to prevent further life threatening deterioration of the patient 's condition and/or to evaluate & treat vital organ system(s) failure or risk of failure.
[2018-05-18] MEDS: PANTOPRAZOLE 40 MG TABLET (FP) PO SCH ×2 (09:10→11:03)
[2018-05-18 09:40] LABS: ACANTHOCYTES 0; ANISOCYTOSIS 0; HELMET CELLS 0; HOWELL-JOLLY BODIES 0; MACROCYTOSIS 0; OVALOCYTE 0; PLATELET ESTIMATE NORMAL; ROULEAU 0; SICKELED CELLS 0; TARGET CELLS 0; TEAR DROP CELLS 0; TOXIC GRANULATION 0
--- NOTE | 2018-05-18 09:46 | PN ---
Progress Note, Physician - Current Medication List Current Medications: Active Medications Albuterol Sulfate (Ventolin 0.083% Nebulizer Soln -) 1 amp NEB Q6H PRN PRN Reason: SHORT OF BREATH/WHEEZING Last Admin: 05/17/18 06:00 Dose: 1 amp Albuterol/Ipratropium (Duoneb -) 1 amp NEB Q4H [facility] Last Admin: 05/18/18 07:02 Dose: 1 amp Chlorhexidine Gluconate (Hibiclens For Decolonization -) 1 applic TP HS [facility] Last Admin: 05/17/18 23:05 Dose: Not Given Levofloxacin (Levaquin 750 Mg Premixed Ivpb -) 750 mg in 150 mls @ 150 mls/hr IVPB DAILY [facility]; Protocol Last Admin: 05/18/18 09:10 Dose: 150 mls/hr Vancomycin HCl (Vancomycin (Pre-Docked)) 1,000 mg in 250 mls @ 166.667 mls/hr IVPB BID@0230,1430 [facility]; Protocol Last Admin: 05/18/18 01:49 Dose: 166.667 mls/hr Methylprednisolone Sodium Succinate (Solu-Medrol -) 60 mg IVPUSH Q8H-IV [facility] Last Admin: 05/18/18 09:10 Dose: 60 mg Mupirocin (Bactroban Ointment (For Decolonization) -) 1 applic NS BID [facility] Stop: 05/18/18 21:59 Last Admin: 05/17/18 23:05 Dose: Not Given Pantoprazole Sodium (Protonix -) 40 mg PO DAILY [facility] Last Admin: 05/17/18 09:28 Dose: 40 mg Sertraline HCl (Zoloft -) 125 mg PO [facility] Last Admin: 05/17/18 21:38 Dose: 125 mg Sodium Chloride ([place] Nasal [place] -) 2 spray NS QID PRN PRN Reason: NASAL CONGESTION - Objective Vital Signs: Vital Signs Temperature 98.8 F 05/18/18 06:00 Pulse Rate 104 H 05/18/18 06:00 Respiratory Rate 20 05/18/18 06:00 Blood Pressure 107/61 05/18/18 06:00 O2 Sat by Pulse Oximetry (%) 95 05/17/18 21:00 Cardiovascular: Yes: Regular Rate and Rhythm Respiratory: Yes: On Nasal O2, Rales (AT THE BASES) Gastrointestinal: Yes: Normal Bowel Sounds, Soft Labs: CBC, BMP 05/18/18 05:30 05/18/18 05:30 INR, PTT INR 0.98 (0.83-1.09) 05/18/18 05:30 Problem List - Problems (1) Pneumonia Assessment/Plan: --Previous w/u noted -ID consult noted -Abx per ID - Orders 05/14/18 14:30 Vancomycin 1 Gram (Pre-Docked) [Vancomycin (Pre-Docked)] 1,000 mg in 250 ml IVPB BID@0230,1430 05/15/18 10:00 levoFLOXacin 750 MG IVPB [Levaquin 750 mg Premixed Ivpb -] 750 mg in 150 ml IVPB DAILY Code(s): J18.9 - PNEUMONIA, UNSPECIFIED ORGANISM (2) Chronic lung disease Assessment/Plan: -Of unknown Etiology -Pulm on case -IV steroids -Nebs -TS consult for biopsy--VATs Code(s): J98.4 - OTHER DISORDERS OF LUNG (3) Hypoxemia Assessment/Plan: -as above Code(s): R09.02 - HYPOXEMIA (4) Sleep apnea Code(s): G47.30 - SLEEP APNEA, UNSPECIFIED (5) Chest pain Assessment/Plan: -Probbaly related to breathing-hypoxia -Echo noted-nl ef -CE negative -EKG NSR -Cardio consult noted Code(s): R07.9 - CHEST PAIN, UNSPECIFIED
[2018-05-18] MEDS: MUPIROCIN 2% TOPICAL OINTMENT FOR DECOLONIZATION NS SCH ×2 (10:00→22:17)
--- NOTE | 2018-05-18 10:53 | PN ---
Teaching Attending Note Name of Resident: Cuong Pantoja ATTENDING PHYSICIAN STATEMENT I saw and evaluated the patient. I reviewed the resident's note and discussed the case with the resident. I agree with the resident's findings and plan as documented. SUBJECTIVE: Pt seen and examined in the ICU. Breathing about the same. For OR today. OBJECTIVE: Vital Signs Period Temp Pulse Resp BP Sys/Cerrato Pulse Ox Last 24 Hr 97.9 F-98.9 F 74-114 20-31 101-131/60-88 93-95 Intake & Output 05/15/18 05/16/18 05/17/18 05/18/18 23:59 23:59 23:59 23:59 Intake Total 1900 1700 1400 400 Output Total 1200 900 Balance 332 742 1929 400 Weight 99.337 kg 97.386 kg 97.568 kg Gen: mildly tachypneic at rest Heart: RRR Lung: bibasilar rales Abd: soft, nontender Ext: no edema CBC, BMP 05/18/18 05:30 05/18/18 05:30 Active Medications Albuterol Sulfate (Ventolin 0.083% Nebulizer Soln -) 1 amp NEB Q6H PRN PRN Reason: SHORT OF BREATH/WHEEZING Last Admin: 05/17/18 06:00 Dose: 1 amp Albuterol/Ipratropium (Duoneb -) 1 amp NEB Q4H [facility] Last Admin: 05/18/18 07:02 Dose: 1 amp Chlorhexidine Gluconate (Hibiclens For Decolonization -) 1 applic TP HS [facility] Last Admin: 05/17/18 23:05 Dose: Not Given Levofloxacin (Levaquin 750 Mg Premixed Ivpb -) 750 mg in 150 mls @ 150 mls/hr IVPB DAILY [facility]; Protocol Last Admin: 05/18/18 09:10 Dose: 150 mls/hr Vancomycin HCl (Vancomycin (Pre-Docked)) 1,000 mg in 250 mls @ 166.667 mls/hr IVPB BID@0230,1430 [facility]; Protocol Last Admin: 05/18/18 01:49 Dose: 166.667 mls/hr Methylprednisolone Sodium Succinate (Solu-Medrol -) 60 mg IVPUSH Q8H-IV [facility] Last Admin: 05/18/18 09:10 Dose: 60 mg Mupirocin (Bactroban Ointment (For Decolonization) -) 1 applic NS BID [facility] Stop: 05/18/18 21:59 Last Admin: 05/17/18 23:05 Dose: Not Given Pantoprazole Sodium (Protonix -) 40 mg PO DAILY [facility] Last Admin: 05/17/18 09:28 Dose: 40 mg Sertraline HCl (Zoloft -) 125 mg PO HS [facility] Last Admin: 05/17/18 21:38 Dose: 125 mg Sodium Chloride ([place] Nasal [place] -) 2 spray NS QID PRN PRN Reason: NASAL CONGESTION ASSESSMENT AND PLAN: Acute Hypoxic Respiratory Failure Interstitial Lung Disease Acute Pneumonitis r/o Sepsis Obstructive Sleep Apnea - continue medrol at current dose - inhaled bronchodilators - O2 to keep SpO2 >90% - on empiric antibiotics - f/u cultures - f/u pending serologies - for VATS today - DVT/GI prophylaxis
[2018-05-18] MEDS ORDERED: BUPIVACAINE HCL/PF 0.25% (2.5MG/ML) 10 ML VIAL ONE (13:22)
[2018-05-18] MEDS ORDERED: MIDAZOLAM HCL 2 MG/2 ML SINGLE DOSE VIAL ONE (14:11)
[2018-05-18] MEDS ORDERED: fentaNYL CITRATE 250 MCG/5 ML VIAL ONE (14:16)
[2018-05-18] MEDS ORDERED: ROCURONIUM BROMIDE 50 MG/5 ML VIAL ONE ×2 (14:16→14:57)
[2018-05-18] MEDS ORDERED: PROPOFOL 20 ML ONE (14:17)
[2018-05-18] MEDS ORDERED: VANCOMYCIN 1,000 MG VIAL (RESTRICTED TO ID ONLY) IVPB ONE (14:21)
[2018-05-18] MEDS ORDERED: NEOSTIGMINE METHYLSULFATE 0.5 MG/ML - 10 ML MDV ONE (16:00)
[2018-05-18] MEDS ORDERED: BUPIVACAINE HCL/PF 0.25% (2.5MG/ML) 10 ML VIAL IJ ONE (16:02)
[2018-05-18] MEDS ORDERED: ACETAMINOPHEN 1000 MG/100 ML VIAL (NON FORMULARY) IVPB PRN (16:12)
--- NOTE | 2018-05-18 16:30 | OP ---
Operative Note - Note: Operative Date: 05/18/18 Pre-Operative Diagnosis: PNA (unspecified), Increased SOB, decreased SpO2 on room air Operation: Bronchoscopy with washings, Right VATs, lung biopsy x2 Post-Operative Diagnosis: Same as Pre-op Surgeon: Ra Marshall Customer Acquisition Manager: Cm Vargas Anesthesiologist/PRODUCER ARBORIST MANAGER: Mary Brown MD Anesthesia: General Specimens Removed: Lung wedge biopsy x 2. Bronchial washings Estimated Blood Loss (mls): 10 Drains, Volume Out (mls): 75 Fluid Volume Replaced (mls): 900 Operative Report Dictated: Yes
--- NOTE | 2018-05-18 16:32 | SURG ---
Surgery Yacht Captain Note Yacht Captain: Cm Vargas PA-C Date of Service: 05/18/18 Diagnosis: Decreased SpO2 on room air, increased SOB, [place], unspecified PNA Procedure: Bronchoscopy with washings, right VATs with lung biopsy x2, chest tube placement I was present for the entirety of the operative procedure. For further detail, please refer to operative report. Visit type - Case Type Case Type: ED Admission - New patient This patient is new to me today: Yes Date on this admission: 05/18/18
[2018-05-18 18:18] LABS: ATYPICAL pANCA <1:20 titer (Neg:<1:20); C-ANCA <1:20 titer (Neg:<1:20); P-ANCA <1:20 titer (Neg:<1:20)
[2018-05-18] MEDS: morphine SULFATE 4 MG/ML VIAL IVPUSH PRN ×2 (18:18→22:15)
[2018-05-18] MEDS ORDERED: ALBUTEROL SO4 0.083% IH SOL 2.5 MG/3 ML VIAL.NEB. NEB PRN (19:01)
[2018-05-18] MEDS ORDERED: SODIUM CHLORIDE NASAL SPRAY 44 ML BOTTLE NS PRN (19:01)
[2018-05-18] MEDS ORDERED: SERTRALINE HCL 25 MG TABLET (FP) PO SCH (22:00)
[2018-05-18] MEDS ORDERED: PATIENT'S OWN MEDICATION (NON-FORMULARY) (Sertraline Hcl [Zoloft] 100 MG) PO SCH (22:00)
[2018-05-18] MEDS ORDERED: PT OWN MED DRAWER 7, Y5N ONE (22:11)
[2018-05-18] MEDS: CHLORHEXIDINE GLUCONATE 4% CLEANSER FOR DECOLONIZATION TP SCH (22:16)
[2018-05-18] MEDS: LACTATED RINGERS SOLUTION 1,000 ML/1,000 ML INFUS.BAG IV SCH (22:16)
[2018-05-18] MEDS: SERTRALINE HCL 50 MG TABLET (FP) PO SCH (22:26)
[2018-05-18] MEDS: DOCUSATE SODIUM 100 MG CAPSULE (FP) PO SCH (22:26)
[2018-05-18] MEDS: HEPARIN NA (PORCINE) 5,000 UNITS/ML 1ML VIAL SQ SCH (22:55)
[2018-05-19] MEDS ORDERED: methylPREDNISolone NA SUCC 40 MG/1 ML VIAL IVPUSH SCH ×2 (02:00→11:00)
[2018-05-19] MEDS: VANCOMYCIN 1 GRAM (PRE-DOCKED) 1,000 MG/250 ML BAG IVPB SCH ×2 (02:13→14:13)
[2018-05-19] MEDS: morphine SULFATE 4 MG/ML VIAL IVPUSH PRN ×3 (02:14→08:48)
[2018-05-19] MEDS: ALBUTEROL SO4 2.5/IPRATROPIUM 0.5 INH SOL 3 ML VIAL.NEB. NEB SCH ×6 (03:15→20:50)
[2018-05-19 05:55] LABS: BASO % 0.3 % (0-2.0); HEMATOCRIT 40.5 % (32.4-45.2); HEMOGLOBIN 13.3 GM/dL (10.7-15.3); LYMPH % 6.7 % (8-40); MCH 30.5 pg (25.7-33.7); MCHC 32.9 g/dl (32.0-36.0); MEAN CELL VOLUME 92.7 fl (80-96); MONO % 7.8 % (3.8-10.2); NEUT % 85.2 % (42.8-82.8); PLATELET COUNT 203 K/MM3 (134-434); RBC 4.37 M/mm3 (3.60-5.2); WHITE BLOOD COUNT 16.3 K/mm3 (4.0-10.0)
[2018-05-19] MEDS: ACETAMINOPHEN 1000 MG/100 ML VIAL (NON FORMULARY) IVPB PRN ×2 (06:15→13:13)
[2018-05-19 06:33] LABS: ALBUMIN 2.5 g/dl (3.4-5.0); ALK PHOS 55 U/L (45-117); ANION GAP 8 MMOL/L (8-16); BILIRUBIN,TOTAL 0.9 mg/dL (0.2-1); BLOOD UREA NITROGEN 21 mg/dL (7-18); CALCIUM 7.9 mg/dL (8.5-10.1); CHLORIDE 100 mmol/L (98-107); CO2 30 mmol/L (21-32); CREATININE 0.7 mg/dL (0.55-1.3); GLUCOSE,RANDOM 88 mg/dL (74-106); MAGNESIUM 2.9 mg/dL (1.8-2.4); POTASSIUM 4.7 mmol/L (3.5-5.1); SGOT/AST 15 U/L (15-37); SGPT/ALT 41 U/L (13-61); SODIUM 138 mmol/L (136-145); TOT PROT 5.3 g/dl (6.4-8.2)
[2018-05-19] MEDS: HEPARIN NA (PORCINE) 5,000 UNITS/ML 1ML VIAL SQ SCH ×3 (06:35→21:07)
[2018-05-19] MEDS: DOCUSATE SODIUM 100 MG CAPSULE (FP) PO SCH ×3 (06:35→21:07)
--- NOTE | 2018-05-19 07:48 | PN ---
Physical Exam: SUBJECTIVE: Patient seen and examined in the ICU. POD1 VATS and wedge biopsy x 2. No fevers or chills, sob. +R chest tube on water seal, draining well w/ serosanguinous fluid. c/o post op R cp and R shoulder pain relieved w/ pain meds. CXR shows small apical pneumo OBJECTIVE: Vital Signs Period Temp Pulse Resp BP Sys/Cerrato Pulse Ox Last 24 Hr 97.9 F-98.7 F 68-111 18-31 102-140/52-88 89-95 GENERAL: AOX3 NAD on NC, talking comfortably HEENT: NCAT sclera anicteric, conjunctiva clear. No lid lag. MMM NECK: Normal range of motion, supple without lymphadenopathy, JVD, or masses. LUNGS: fine crackles at bases b/l. +R chest tube no air leak HEART: RRR, normal S1 and S2 without m/r/g ABDOMEN: Soft, NTND, normoactive bowel sounds, no guarding, no rebound, no masses. MUSCULOSKELETAL: Normal range of motion at all joints. No bony deformities or tenderness. UPPER EXTREMITIES: 2+ pulses, warm, well-perfused. No cyanosis. No clubbing. Cap refill <2 seconds. No peripheral edema. LOWER EXTREMITIES: 2+ pulses, warm, well-perfused. No calf tenderness. No peripheral edema. NEUROLOGICAL: Cranial nerves II-XII intact. Normal speech. PSYCHIATRIC: Cooperative. Good eye contact. Appropriate mood and affect. SKIN: Warm, dry, normal turgor, no rashes or lesions noted. Laboratory Results - last 24 hr 05/14/18 05/14/18 05/14/18 12:08 12:08 12:08 WBC RBC Hgb Hct MCV MCH MCHC RDW Plt Count MPV Absolute Neuts (auto) Total Counted Neutrophils % Neutrophils % (Manual) Band Neutrophils % Lymphocytes % Lymphocytes % (Manual) Monocytes % Monocytes % (Manual) Eosinophils % Eosinophils % (Manual) Basophils % Basophils % (Manual) Myelocytes % (Man) Promyelocytes % (Man) Blast Cells % (Manual) Nucleated RBC % Metamyelocytes Hypochromia Toxic Granulation Dohle Bodies Platelet Estimate Polychromasia Poikilocytosis Basophilic Stippling Anisocytosis Microcytosis Macrocytosis Spherocytes Sickle Cells Target Cells Tear Drop Cells Ovalocytes Stomatocytes Helmet Cells [place] Bodies Froid Rings Natacha Cells Acanthocytes (Spur) Rouleaux Fragmented RBCs Schistocytes Sodium Potassium Chloride Carbon Dioxide Anion Gap BUN Creatinine Creat Clearance w eGFR Random Glucose Calcium Phosphorus Magnesium Total Bilirubin AST ALT Alkaline Phosphatase Total Protein Albumin DEION Screen Negative c-ANCA <1:20 Proteinase 3 (PR3) <3.5 p-ANCA <1:20 Atypical p-ANCA <1:20 Myeloperoxidase Ab <9.0 Glomerular Base Memb Ab 3 05/18/18 05/19/18 05/19/18 05:30 05:30 05:30 WBC 16.3 H RBC 4.37 Hgb 13.3 Hct 40.5 MCV 92.7 MCH 30.5 MCHC 32.9 RDW 15.0 Plt Count 203 MPV 8.0 Absolute Neuts (auto) 13.9 H Total Counted 100 Neutrophils % 85.2 H Neutrophils % (Manual) 88.8 H 86.0 H Band Neutrophils % 0.0 Lymphocytes % 6.7 L Lymphocytes % (Manual) 4.1 L D Monocytes % 7.8 Monocytes % (Manual) 5 Eosinophils % 0.0 Eosinophils % (Manual) 0.0 Basophils % 0.3 Basophils % (Manual) 0.0 Myelocytes % (Man) 1 D Promyelocytes % (Man) 0 Blast Cells % (Manual) 0 Nucleated RBC % 0 Metamyelocytes 0 Hypochromia 0 Toxic Granulation 0 Dohle Bodies 0 Platelet Estimate Normal Polychromasia 0 Poikilocytosis 0 Basophilic Stippling 0 Anisocytosis 0 Microcytosis 0 Macrocytosis 0 Spherocytes 0 Sickle Cells 0 Target Cells 0 Tear Drop Cells 0 Ovalocytes 0 Stomatocytes 0 Helmet Cells 0 [place] Bodies 0 Froid Rings 0 Natacha Cells 0 Acanthocytes (Spur) 0 Rouleaux 0 Fragmented RBCs 0 Schistocytes 0 Sodium 138 Potassium 4.7 Chloride 100 Carbon Dioxide 30 Anion Gap 8 BUN 21 H Creatinine 0.7 Creat Clearance w eGFR > 60 Random Glucose 88 Calcium 7.9 L Phosphorus 6.0 H Magnesium 2.9 H Total Bilirubin 0.9 AST 15 ALT 41 Alkaline Phosphatase 55 Total Protein 5.3 L Albumin 2.5 L DEION Screen c-ANCA Proteinase 3 (PR3) p-ANCA Atypical p-ANCA Myeloperoxidase Ab Glomerular Base Memb Ab Active Medications Generic Name Dose Route Start Last Admin Trade Name Freq PRN Reason Stop Dose Admin Acetaminophen 1,000 mg 05/18/18 19:01 05/19/18 06:15 Ofirmev Injection - IVPB 1,000 mg Q6H PRN Administration PAIN LEVEL 6-10 Albuterol Sulfate 1 amp 05/18/18 19:01 Ventolin 0.083% Nebulizer Soln - NEB Q6H PRN SHORT OF BREATH/WHEEZING Albuterol/Ipratropium 1 amp 05/18/18 20:00 05/19/18 03:15 Duoneb - NEB 1 amp RQ4H KATERIN Administration Chlorhexidine Gluconate 1 applic 05/18/18 22:00 05/18/18 22:16 Hibiclens For Decolonization - TP 1 applic HS [facility] Administration Docusate Sodium 100 mg 05/18/18 22:00 05/19/18 06:35 Colace - PO 100 mg TID KATERIN Administration Heparin Sodium (Porcine) 5,000 unit 05/18/18 22:00 05/19/18 06:35 Heparin - SQ 5,000 unit TID KATERIN Administration Lactated Ringer's 1,000 ml in 1,000 mls @ 75 mls/hr 05/18/18 18:15 05/18/18 22:16 Lactated Ringers Solution IV 75 mls/hr ASDIR KATERIN Administration Levofloxacin 750 mg in 150 mls @ 150 mls/hr 05/19/18 10:00 Levaquin 750 Mg Premixed Ivpb - IVPB DAILY [facility] Protocol Vancomycin HCl 1,000 mg in 250 mls @ 166.667 mls/hr 05/19/18 02:30 05/19/18 02:13 Vancomycin (Pre-Docked) IVPB 166.667 mls/hr BID@0230,1430 [facility] Administration Protocol Morphine Sulfate 4 mg 05/18/18 16:21 05/19/18 06:15 Morphine Sulfate IVPUSH 4 mg Q4H PRN Administration PAIN LEVEL 7 - 10 Mupirocin 1 applic 05/18/18 22:00 05/18/18 22:17 Bactroban Ointment (For Decolonization) - NS 05/23/18 21:59 1 applic BID [facility] Administration Pantoprazole Sodium 40 mg 05/19/18 10:00 Protonix - PO DAILY [facility] Prednisone 60 mg 05/19/18 10:00 Deltasone - PO DAILY [facility] Sertraline HCl 125 mg 05/18/18 22:00 05/18/18 22:26 Zoloft - PO 125 mg HS [facility] Administration Sodium Chloride 2 spray 05/18/18 19:01 [place] Nasal [place] - NS Q6H PRN NASAL CONGESTION ASSESSMENT/PLAN: 52 yo F, PMH sleep apnea (c-pap at night), cryptogenic pneumonia?, p/w with, acute hypoxic respiratory failure 2/2 possible sepsis 2/2 pneumonia vs ILD. POD1 VATS and lung biopsy Problems: acute hypoxic respiratory failure r/o sepsis leukocytosis - sepsis vs current steroid use ILD: acute onset (?) Rheumatologic (brother has RA) (?) BOOP (?) HP sleep apnea (c-pap at night) POD1 VATS and lung biopsy s/p 1 L NS in ED O2 as needed to keep SpO2 >90% +R chest tube on water seal c-pap at quality assurance monitor body H/H c/w solumedrol 60q8h bronchodilators Maintain MAP >65 [place], can dc when OOB monitor Cr/UOP cardiac monitoring echo 05/03/18 - nl CT 05/09/18 - ILD Chest CT 05/16/18 reviewed EKG in ED NSR w/ no ST ischemic changes, trop neg x2 bcx, sputum cx, legionella, UA, flu neg Ucx contaminated, no need to rpt at this time. rpt if spikes fever ID consult per ID: levaquin and vancomycin RF, DEION, ANCA, anti-GBM, HIV neg Thoracic consult incentive spirometer pain ctl bowel regimen f/u biopsy results CXR shows small apical pneumo, will rpt CXR, monitor, and plan to remove chest tube this afternoon. Flexeril x1 for R shoulder tightness FEN LR 75cc replete prn clears, advance as tolerated ppx SQH protonix bacid Dispo: ICU monitoring POD1 VATS and lung biopsy PT eval Visit type - Emergency Visit Emergency Visit: Yes ED Registration Date: 05/13/18 Care time: The patient presented to the Emergency Department on the above date and was hospitalized for further evaluation of their emergent condition. - New Patient This patient is new to me today: Yes Date on this admission: 05/19/18 - Critical Care Critical Care patient: Yes Total Critical Care Time (in minutes): 38 Critical Care Statement: The care of this patient involved high complexity decision making to prevent further life threatening deterioration of the patient 's condition and/or to evaluate & treat vital organ system(s) failure or risk of failure.
--- NOTE | 2018-05-19 08:17 | PN ---
Progress Note (short form) - Note Progress Note: 52yo F s/p Right VATS and wedge resection POD 1, pt seen and examined at bedside in ICU. Pt states that she is breathing well, just complaining of Rt chest pain with deep breathing. Denies fever, chills, n/v. Pt currently on nasal cannula. Last Vital Signs Temp Pulse Resp BP Pulse Ox 98.4 F 73 22 H 106/54 L 94 L 05/19/18 06:00 05/19/18 06:00 05/19/18 06:00 05/19/18 06:00 05/18/18 21:00 CBC, BMP 05/19/18 05:30 05/19/18 05:30 PE: Gen: A&O x3 Resp: breathing comfortably on nasal cannula. Chest: incision is clean with no erythema or discharge, Rt sided chest tube in place with serosanguinous drainage. No air leak. Ext: no edema CXR: showed possible Rt sided pneumothorax. Problem List - Problems (1) S/P thoracotomy Assessment/Plan: Plan -cxr is not the best quality, pneumothorax is questionable, recommend repeat cxr and make sure pt is truly upright. -if cxr is good, will place on waterseal, repeat cxr and plan to remove chest tube this afternoon. -may adv diet -dvt ppx -incentive spirometry, coached pt on importance of using 10 times an hour. -will follow up repeat cxr
--- NOTE | 2018-05-19 08:51 | PN ---
Progress Note, Physician - Current Medication List Current Medications: Active Medications Acetaminophen (Ofirmev Injection -) 1,000 mg IVPB Q6H PRN PRN Reason: PAIN LEVEL 6-10 Last Admin: 05/19/18 06:15 Dose: 1,000 mg Albuterol Sulfate (Ventolin 0.083% Nebulizer Soln -) 1 amp NEB Q6H PRN PRN Reason: SHORT OF BREATH/WHEEZING Albuterol/Ipratropium (Duoneb -) 1 amp NEB RQ4H [facility] Last Admin: 05/19/18 03:15 Dose: 1 amp Chlorhexidine Gluconate (Hibiclens For Decolonization -) 1 applic TP HS [facility] Last Admin: 05/18/18 22:16 Dose: 1 applic Docusate Sodium (Colace -) 100 mg PO TID [facility] Last Admin: 05/19/18 06:35 Dose: 100 mg Heparin Sodium (Porcine) (Heparin -) 5,000 unit SQ TID [facility] Last Admin: 05/19/18 06:35 Dose: 5,000 unit Lactated Ringer's (Lactated Ringers Solution) 1,000 ml in 1,000 mls @ 75 mls/ hr IV ASDIR [facility] Last Admin: 05/18/18 22:16 Dose: 75 mls/hr Levofloxacin (Levaquin 750 Mg Premixed Ivpb -) 750 mg in 150 mls @ 150 mls/hr IVPB DAILY [facility]; Protocol Vancomycin HCl (Vancomycin (Pre-Docked)) 1,000 mg in 250 mls @ 166.667 mls/hr IVPB BID@0230,1430 [facility]; Protocol Last Admin: 05/19/18 02:13 Dose: 166.667 mls/hr Lactobacillus Acidophilus (Bacid -) 1 tab PO DAILY [facility] Morphine Sulfate (Morphine Sulfate) 4 mg IVPUSH Q4H PRN PRN Reason: PAIN LEVEL 7 - 10 Last Admin: 05/19/18 08:48 Dose: 4 mg Mupirocin (Bactroban Ointment (For Decolonization) -) 1 applic NS BID [facility] Stop: 05/23/18 21:59 Last Admin: 05/18/18 22:17 Dose: 1 applic Pantoprazole Sodium (Protonix -) 40 mg PO DAILY [facility] Prednisone (Deltasone -) 60 mg PO DAILY [facility] Sertraline HCl (Zoloft -) 125 mg PO HS [facility] Last Admin: 05/18/18 22:26 Dose: 125 mg Sodium Chloride ([place] Nasal [place] -) 2 spray NS Q6H PRN PRN Reason: NASAL CONGESTION - Objective Vital Signs: Vital Signs Temperature 98.4 F 05/19/18 06:00 Pulse Rate 73 05/19/18 06:00 Respiratory Rate 22 H 05/19/18 06:00 Blood Pressure 106/54 L 05/19/18 06:00 O2 Sat by Pulse Oximetry (%) 94 L 05/18/18 21:00 Cardiovascular: Yes: Regular Rate and Rhythm Respiratory: Yes: On Nasal O2, Rales Gastrointestinal: Yes: Normal Bowel Sounds, Soft Labs: CBC, BMP 05/19/18 05:30 05/19/18 05:30 INR, PTT INR 0.98 (0.83-1.09) 05/18/18 05:30 Problem List - Problems (1) Pneumonia Assessment/Plan: --Previous w/u noted -ID consult noted -Abx per ID - Orders 05/14/18 14:30 Vancomycin 1 Gram (Pre-Docked) [Vancomycin (Pre-Docked)] 1,000 mg in 250 ml IVPB BID@0230,1430 05/15/18 10:00 levoFLOXacin 750 MG IVPB [Levaquin 750 mg Premixed Ivpb -] 750 mg in 150 ml IVPB DAILY Code(s): J18.9 - PNEUMONIA, UNSPECIFIED ORGANISM (2) Chronic lung disease Assessment/Plan: -Of unknown Etiology -Pulm on case -IV steroids -Nebs -TS consult for biopsy--VATs Operative Date: 05/18/18 Pre-Operative Diagnosis: PNA (unspecified), Increased SOB, decreased SpO2 on room air Operation: Bronchoscopy with washings, Right VATs, lung biopsy x2 Post-Operative Diagnosis: Same as Pre-op Surgeon: Ra [employer] Director: Cm Vargas Code(s): J98.4 - OTHER DISORDERS OF LUNG (3) Hypoxemia Assessment/Plan: -as above Code(s): R09.02 - HYPOXEMIA (4) Sleep apnea Code(s): G47.30 - SLEEP APNEA, UNSPECIFIED (5) Chest pain Code(s): R07.9 - CHEST PAIN, UNSPECIFIED
[2018-05-19] MEDS ORDERED: predniSONE 20 MG TABLET (UD) PO SCH (10:00)
--- NOTE | 2018-05-19 10:11 | PN ---
Progress Note, Physician History of Present Illness: POD #1 VATS Awake, alert Breathing non-labored No complaints Afebrile, WBC elevated on steroids Cultures pending - Current Medication List Current Medications: Active Medications Acetaminophen (Ofirmev Injection -) 1,000 mg IVPB Q6H PRN PRN Reason: PAIN LEVEL 6-10 Last Admin: 05/19/18 06:15 Dose: 1,000 mg Albuterol Sulfate (Ventolin 0.083% Nebulizer Soln -) 1 amp NEB Q6H PRN PRN Reason: SHORT OF BREATH/WHEEZING Albuterol/Ipratropium (Duoneb -) 1 amp NEB RQ4H [facility] Last Admin: 05/19/18 08:00 Dose: 1 amp Chlorhexidine Gluconate (Hibiclens For Decolonization -) 1 applic TP HS [facility] Last Admin: 05/18/18 22:16 Dose: 1 applic Docusate Sodium (Colace -) 100 mg PO TID [facility] Last Admin: 05/19/18 06:35 Dose: 100 mg Heparin Sodium (Porcine) (Heparin -) 5,000 unit SQ TID [facility] Last Admin: 05/19/18 06:35 Dose: 5,000 unit Lactated Ringer's (Lactated Ringers Solution) 1,000 ml in 1,000 mls @ 75 mls/ hr IV ASDIR [facility] Last Admin: 05/18/18 22:16 Dose: 75 mls/hr Levofloxacin (Levaquin 750 Mg Premixed Ivpb -) 750 mg in 150 mls @ 150 mls/hr IVPB DAILY [facility]; Protocol Vancomycin HCl (Vancomycin (Pre-Docked)) 1,000 mg in 250 mls @ 166.667 mls/hr IVPB BID@0230,1430 [facility]; Protocol Last Admin: 05/19/18 02:13 Dose: 166.667 mls/hr Lactobacillus Acidophilus (Bacid -) 1 tab PO DAILY [facility] Morphine Sulfate (Morphine Sulfate) 4 mg IVPUSH Q4H PRN PRN Reason: PAIN LEVEL 7 - 10 Last Admin: 05/19/18 08:48 Dose: 4 mg Mupirocin (Bactroban Ointment (For Decolonization) -) 1 applic NS BID [facility] Stop: 05/23/18 21:59 Last Admin: 05/18/18 22:17 Dose: 1 applic Pantoprazole Sodium (Protonix -) 40 mg PO DAILY [facility] Prednisone (Deltasone -) 60 mg PO DAILY [facility] Sertraline HCl (Zoloft -) 125 mg PO HS [facility] Last Admin: 05/18/18 22:26 Dose: 125 mg Sodium Chloride ([place] Nasal [place] -) 2 spray NS Q6H PRN PRN Reason: NASAL CONGESTION - Objective Vital Signs: Vital Signs Temperature 98.4 F 05/19/18 06:00 Pulse Rate 84 05/19/18 08:00 Respiratory Rate 20 05/19/18 09:00 Blood Pressure 115/64 05/19/18 08:00 O2 Sat by Pulse Oximetry (%) 92 L 05/19/18 09:00 Constitutional: Yes: No Distress Eyes: Yes: Conjunctiva Clear Cardiovascular: Yes: Regular Rate and Rhythm, S1, S2 Respiratory: Yes: Diminished Gastrointestinal: Yes: Normal Bowel Sounds, Soft. No: Tenderness Edema: No Labs: CBC, BMP 05/19/18 05:30 05/19/18 05:30 INR, PTT INR 0.98 (0.83-1.09) 05/18/18 05:30 Assessment/Plan Bilateral pneumonitis ? etiology POD#1 VATS Await cultures Continue empiric vancomycin/levaquin
[2018-05-19] MEDS: PANTOPRAZOLE 40 MG TABLET (FP) PO SCH (10:13)
[2018-05-19] MEDS: LACTOBACILLUS ACIDOPHILUS 1 TABLET PO SCH (10:14)
[2018-05-19] MEDS: MUPIROCIN 2% TOPICAL OINTMENT FOR DECOLONIZATION NS SCH ×2 (10:14→21:07)
--- NOTE | 2018-05-19 11:00 | PN ---
Teaching Attending Note Name of Resident: Cuong Pantjoa ATTENDING PHYSICIAN STATEMENT I saw and evaluated the patient. I reviewed the resident's note and discussed the case with the resident. I agree with the resident's findings and plan as documented. SUBJECTIVE: Pt seen and examined in the ICU. s/p R VATS, wedge biopsy x 2. Chest tube on water seal with serosanguinous drainage. OBJECTIVE: Vital Signs Period Temp Pulse Resp BP Sys/Cerrato Pulse Ox Last 24 Hr 98.4 F-98.7 F 68-111 18-31 102-140/52-76 89-94 Intake & Output 05/16/18 05/17/18 05/18/18 05/19/18 23:59 23:59 23:59 23:59 Intake Total 1700 1400 1550 1250 Output Total 900 405 115 Balance 800 1400 1145 1135 Weight 99.337 kg 97.386 kg 97.568 kg Gen: NAD at rest Heart: RRR Lung: basilar rales Abd: soft, nontender Ext: no edema Chest tube: serosanguinous fluid, no air leak CBC, BMP 05/19/18 05:30 05/19/18 05:30 Active Medications Acetaminophen (Ofirmev Injection -) 1,000 mg IVPB Q6H PRN PRN Reason: PAIN LEVEL 6-10 Last Admin: 05/19/18 06:15 Dose: 1,000 mg Albuterol Sulfate (Ventolin 0.083% Nebulizer Soln -) 1 amp NEB Q6H PRN PRN Reason: SHORT OF BREATH/WHEEZING Albuterol/Ipratropium (Duoneb -) 1 amp NEB RQ4H [facility] Last Admin: 05/19/18 08:00 Dose: 1 amp Chlorhexidine Gluconate (Hibiclens For Decolonization -) 1 applic TP HS [facility] Last Admin: 05/18/18 22:16 Dose: 1 applic Docusate Sodium (Colace -) 100 mg PO TID [facility] Last Admin: 05/19/18 06:35 Dose: 100 mg Heparin Sodium (Porcine) (Heparin -) 5,000 unit SQ TID [facility] Last Admin: 05/19/18 06:35 Dose: 5,000 unit Lactated Ringer's (Lactated Ringers Solution) 1,000 ml in 1,000 mls @ 75 mls/ hr IV ASDIR [facility] Last Admin: 05/18/18 22:16 Dose: 75 mls/hr Levofloxacin (Levaquin 750 Mg Premixed Ivpb -) 750 mg in 150 mls @ 150 mls/hr IVPB DAILY [facility]; Protocol Last Admin: 05/19/18 10:15 Dose: 150 mls/hr Vancomycin HCl (Vancomycin (Pre-Docked)) 1,000 mg in 250 mls @ 166.667 mls/hr IVPB BID@0230,1430 [facility]; Protocol Last Admin: 05/19/18 02:13 Dose: 166.667 mls/hr Lactobacillus Acidophilus (Bacid -) 1 tab PO DAILY [facility] Last Admin: 05/19/18 10:14 Dose: 1 tab Methylprednisolone Sodium Succinate (Solu-Medrol -) 60 mg IVPUSH Q8H [facility] Morphine Sulfate (Morphine Sulfate) 4 mg IVPUSH Q4H PRN PRN Reason: PAIN LEVEL 7 - 10 Last Admin: 05/19/18 08:48 Dose: 4 mg Mupirocin (Bactroban Ointment (For Decolonization) -) 1 applic NS BID [facility] Stop: 05/23/18 21:59 Last Admin: 05/19/18 10:14 Dose: 1 applic Pantoprazole Sodium (Protonix -) 40 mg PO DAILY [facility] Last Admin: 05/19/18 10:13 Dose: 40 mg Sertraline HCl (Zoloft -) 125 mg PO HS [facility] Last Admin: 05/18/18 22:26 Dose: 125 mg Sodium Chloride ([place] Nasal [place] -) 2 spray NS Q6H PRN PRN Reason: NASAL CONGESTION ASSESSMENT AND PLAN: Acute Hypoxic Respiratory Failure Interstitial Lung Disease Acute Pneumonitis r/o Sepsis Obstructive Sleep Apnea - pain control - incentive spirometry - bowel regimen - continue medrol at current dose - inhaled bronchodilators - O2 to keep SpO2 >90% - on empiric antibiotics - f/u pathology - DVT/GI prophylaxis
--- NOTE | 2018-05-19 11:20 | PN ---
Progress Note (short form) - Note Progress Note: ANESTHESIOLOGY POST-OP CHECK 52F s/p right VATS lung biopsy and bronchoscopy under general anesthesia, POD # 1. No acute complaints. Pain 5/10 and tolerable. Denies N/V Vital Signs Temperature 98.4 F 05/19/18 10:00 Pulse Rate 88 05/19/18 10:00 Respiratory Rate 20 05/19/18 10:00 Blood Pressure 108/65 05/19/18 10:00 O2 Sat by Pulse Oximetry (%) 92 L 05/19/18 09:00 Active Medications Acetaminophen (Ofirmev Injection -) 1,000 mg IVPB Q6H PRN PRN Reason: PAIN LEVEL 6-10 Last Admin: 05/19/18 06:15 Dose: 1,000 mg Albuterol Sulfate (Ventolin 0.083% Nebulizer Soln -) 1 amp NEB Q6H PRN PRN Reason: SHORT OF BREATH/WHEEZING Albuterol/Ipratropium (Duoneb -) 1 amp NEB RQ4H [facility] Last Admin: 05/19/18 08:00 Dose: 1 amp Chlorhexidine Gluconate (Hibiclens For Decolonization -) 1 applic TP HS [facility] Last Admin: 05/18/18 22:16 Dose: 1 applic Cyclobenzaprine HCl (Cyclobenzaprine Hcl) 5 mg PO ONCE ONE Stop: 05/19/18 11:01 Docusate Sodium (Colace -) 100 mg PO TID [facility] Last Admin: 05/19/18 06:35 Dose: 100 mg Heparin Sodium (Porcine) (Heparin -) 5,000 unit SQ TID [facility] Last Admin: 05/19/18 06:35 Dose: 5,000 unit Lactated Ringer's (Lactated Ringers Solution) 1,000 ml in 1,000 mls @ 75 mls/ hr IV ASDIR [facility] Last Admin: 05/18/18 22:16 Dose: 75 mls/hr Levofloxacin (Levaquin 750 Mg Premixed Ivpb -) 750 mg in 150 mls @ 150 mls/hr IVPB DAILY [facility]; Protocol Last Admin: 05/19/18 10:15 Dose: 150 mls/hr Vancomycin HCl (Vancomycin (Pre-Docked)) 1,000 mg in 250 mls @ 166.667 mls/hr IVPB BID@0230,1430 [facility]; Protocol Last Admin: 05/19/18 02:13 Dose: 166.667 mls/hr Lactobacillus Acidophilus (Bacid -) 1 tab PO DAILY [facility] Last Admin: 05/19/18 10:14 Dose: 1 tab Methylprednisolone Sodium Succinate (Solu-Medrol -) 60 mg IVPUSH Q8H [facility] Morphine Sulfate (Morphine Sulfate) 4 mg IVPUSH Q4H PRN PRN Reason: PAIN LEVEL 7 - 10 Last Admin: 05/19/18 08:48 Dose: 4 mg Mupirocin (Bactroban Ointment (For Decolonization) -) 1 applic NS BID [facility] Stop: 05/23/18 21:59 Last Admin: 05/19/18 10:14 Dose: 1 applic Pantoprazole Sodium (Protonix -) 40 mg PO DAILY [facility] Last Admin: 05/19/18 10:13 Dose: 40 mg Sertraline HCl (Zoloft -) 125 mg PO HS [facility] Last Admin: 05/18/18 22:26 Dose: 125 mg Sodium Chloride ([place] Nasal [place] -) 2 spray NS Q6H PRN PRN Reason: NASAL CONGESTION Gen: awake, alert, NAD No apparent anesthesia complications, pain well controlled. Continue management as per primary team.
[2018-05-19] MEDS ORDERED: CYCLOBENZAPRINE HCL 10 MG TABLET (FP) PO ONE ×2 (11:45→21:15)
[2018-05-19] MEDS ORDERED: CYCLOBENZAPRINE HCL 5 MG TABLET PO ONE (11:45)
--- NOTE | 2018-05-19 15:18 | PN ---
Progress Note (short form) - Note Progress Note: Thoracic Surgery (for Dr. Marshall): POD#1 Looks great. Breathing comfortably on 5L NC. CT just removed. F/U CXR. OOB to chair, ambulate with PT. CARLOS collado when ready. Await bx results.
--- NOTE | 2018-05-19 16:02 | PROC ---
Procedure Note Procedure: asked to remove chest tube at bedside. Chest tube removed from right pleural space with tip fully intact and pressure dressing applied. Post procedure portable chest x-ray revealed no evidence of pneumothorax. Patient tolerated the procedure well and post procedure exam revealed unlabored resp on RA with good O2 saturation
--- NOTE | 2018-05-19 16:06 | OP ---
DATE OF OPERATION: 05/18/2018 PREOPERATIVE DIAGNOSIS: Obstructive sleep apnea, interstitial lung disease, obesity. POSTOPERATIVE DIAGNOSIS: Obstructive sleep apnea, interstitial lung disease, obesity. SURGEON: Ra Marshall MD CONTACT LENS BLOCKER: VENANCIO Mike PROCEDURE PERFORMED: Bronchoscopy with bronchoalveolar lavage from right lower lobe and left lower lobe, right video-assisted thoracoscopic surgery, right lower lobe wedge resection, and right upper lobe wedge resection, intercostal nerve block. COMPLICATIONS: None. TUBES/DRAINS: One [place] chest tube. BLOOD LOSS: 5-10 mL IMPLANTS: Not applicable. SPECIMENS: Bronchial washing for culture, right lower lobe wedge for AFB fungi culture. PATHOLOGY: Right upper lobe wedge for pathology. INDICATIONS: A 52-year-old female with abrupt onset of shortness of breath during the last month, increasing shortness of breath. March 2018, she has been able to walk about 3.5 miles without any difficulties. Eventually from beginning of April 2018, she had shortness of breath. She went to her doctor beginning of May , and because of dizziness, was found to have oxygen saturation of about 75%. She was admitted to the hospital. CT of the chest revealed infiltrative changes, bibasilar in the lungs. According to the patient, she gets shortness of breath just by walking to the bathroom, and she also gets shortness of breath by talking. Lung biopsy for diagnostic reason was requested by grab hooker. I informed the patient about the diagnostic nature of the procedure, about risks, benefits, and alternative treatments, and she consented for surgery. PROCEDURE IN DETAIL: Patient was brought into OR, was placed in a supine position. IV access was done by anesthesiologist. IV sedation was given. Patient was intubated with a single-lumen tube. Bronchoscopy was performed. Bronchoalveolar lavage was performed from right bronchus intermedius and left lower lobe. Hereafter, bronchial quentin was placed in right main stem bronchus and position was confirmed using bronchoscope. Hereafter, the patient was placed in left lateral decubitus position, right side up in flexed position, prepped and draped in sterile fashion. At level of IC-5, anterior access underlying incision was made. Thoracic cavity was entered at the level of IC-8 with access of another incision was made. Camera was moved to the IC-8 port and 2 small wedge resections of the right lower lobe and right upper lobe were done using endo stapler. Hemostasis was secured, a [place] chest tube was placed, and lung expanded. Patient tolerated the procedure well. I performed the procedure as dictated above. I was in the OR during the whole procedure and remained available thereafter. RA MARSHALL M.D. [id number] MTDD
[2018-05-19] MEDS: methylPREDNISolone NA SUCC 40 MG/1 ML VIAL IVPUSH SCH (17:43)
[2018-05-19] MEDS ORDERED: PT OWN MED DRAWER 7, Y5N ONE (21:04)
[2018-05-19] MEDS: SERTRALINE HCL 50 MG TABLET (FP) PO SCH (21:06)
[2018-05-19] MEDS: CHLORHEXIDINE GLUCONATE 4% CLEANSER FOR DECOLONIZATION TP SCH (21:07)
[2018-05-19] MEDS: LACTATED RINGERS SOLUTION 1,000 ML/1,000 ML INFUS.BAG IV SCH (21:07)
[2018-05-20] MEDS: ALBUTEROL SO4 2.5/IPRATROPIUM 0.5 INH SOL 3 ML VIAL.NEB. NEB SCH ×6 (00:35→20:04)
[2018-05-20] MEDS: VANCOMYCIN 1 GRAM (PRE-DOCKED) 1,000 MG/250 ML BAG IVPB SCH ×2 (04:01→16:03)
[2018-05-20] MEDS: methylPREDNISolone NA SUCC 40 MG/1 ML VIAL IVPUSH SCH ×2 (04:01→17:07)
[2018-05-20] MEDS: ACETAMINOPHEN 1000 MG/100 ML VIAL (NON FORMULARY) IVPB PRN (05:06)
[2018-05-20 05:48] LABS: BASO % 0.2 % (0-2.0); HEMATOCRIT 39.6 % (32.4-45.2); MCH 30.6 pg (25.7-33.7); MCHC 32.8 g/dl (32.0-36.0); MEAN CELL VOLUME 93.2 fl (80-96); MONO % 4.5 % (3.8-10.2); NEUT % 89.3 % (42.8-82.8); PLATELET COUNT 172 K/MM3 (134-434); RBC 4.25 M/mm3 (3.60-5.2); RDW 14.6 % (11.6-15.6); WHITE BLOOD COUNT 9.5 K/mm3 (4.0-10.0)
[2018-05-20 06:05] LABS: ALBUMIN 2.2 g/dl (3.4-5.0); ALK PHOS 55 U/L (45-117); ANION GAP 8 MMOL/L (8-16); BILIRUBIN,TOTAL 0.5 mg/dL (0.2-1); BLOOD UREA NITROGEN 17 mg/dL (7-18); CALCIUM 7.4 mg/dL (8.5-10.1); CHLORIDE 102 mmol/L (98-107); CO2 29 mmol/L (21-32); CREATININE 0.7 mg/dL (0.55-1.3); GLUCOSE,RANDOM 174 mg/dL (74-106); MAGNESIUM 2.5 mg/dL (1.8-2.4); PHOSPHOROUS 3.9 mg/dL (2.5-4.9); POTASSIUM 3.6 mmol/L (3.5-5.1); SGOT/AST 15 U/L (15-37); SGPT/ALT 39 U/L (13-61); SODIUM 139 mmol/L (136-145); TOT PROT 5.1 g/dl (6.4-8.2)
--- NOTE | 2018-05-20 08:12 | PN ---
Physical Exam: SUBJECTIVE: Patient seen and examined in the ICU. POD2 VATS and wedge biopsy x 2. OOB in chair. No fevers or chills, sob. chest tube removed. No complaints. OBJECTIVE: Vital Signs Period Temp Pulse Resp BP Sys/Cerrato Pulse Ox Last 24 Hr 98.4 F-98.8 F 88-105 20-28 104-112/55-67 92-95 GENERAL: AOX3 NAD on NC, talking comfortably HEENT: NCAT sclera anicteric, conjunctiva clear. No lid lag. MMM NECK: Normal range of motion, supple without lymphadenopathy, JVD, or masses. LUNGS: fine crackles at bases b/l HEART: RRR, normal S1 and S2 without m/r/g ABDOMEN: Soft, NTND, normoactive bowel sounds, no guarding, no rebound, no masses. MUSCULOSKELETAL: Normal range of motion at all joints. No bony deformities or tenderness. UPPER EXTREMITIES: 2+ pulses, warm, well-perfused. No cyanosis. No clubbing. Cap refill <2 seconds. No peripheral edema. LOWER EXTREMITIES: 2+ pulses, warm, well-perfused. No calf tenderness. No peripheral edema. NEUROLOGICAL: Cranial nerves II-XII intact. Normal speech. PSYCHIATRIC: Cooperative. Good eye contact. Appropriate mood and affect. SKIN: Warm, dry, normal turgor, no rashes or lesions noted. Laboratory Results - last 24 hr 05/20/18 05/20/18 05:00 05:00 WBC 9.5 RBC 4.25 Hgb 13.0 Hct 39.6 MCV 93.2 MCH 30.6 MCHC 32.8 RDW 14.6 Plt Count 172 MPV 8.0 Absolute Neuts (auto) 8.5 H Neutrophils % 89.3 H Lymphocytes % 6.0 L Monocytes % 4.5 Eosinophils % 0.0 Basophils % 0.2 Nucleated RBC % 0 Sodium 139 Potassium 3.6 Chloride 102 Carbon Dioxide 29 Anion Gap 8 BUN 17 Creatinine 0.7 Creat Clearance w eGFR > 60 Random Glucose 174 H Calcium 7.4 L Phosphorus 3.9 Magnesium 2.5 H Total Bilirubin 0.5 AST 15 ALT 39 Alkaline Phosphatase 55 Total Protein 5.1 L Albumin 2.2 L Active Medications Generic Name Dose Route Start Last Admin Trade Name Freq PRN Reason Stop Dose Admin Albuterol Sulfate 1 amp 05/18/18 19:01 Ventolin 0.083% Nebulizer Soln - NEB Q6H PRN SHORT OF BREATH/WHEEZING Albuterol/Ipratropium 1 amp 05/18/18 20:00 05/20/18 03:26 Duoneb - NEB 1 amp RQ4H [facility] Administration Chlorhexidine Gluconate 1 applic 05/18/18 22:00 05/19/18 21:07 Hibiclens For Decolonization - TP 1 applic HS [facility] Administration Docusate Sodium 100 mg 05/18/18 22:00 05/19/18 21:07 Colace - PO 100 mg TID [facility] Administration Enoxaparin Sodium 40 mg 05/20/18 10:00 Lovenox - SQ DAILY [facility] Lactated Ringer's 1,000 ml in 1,000 mls @ 75 mls/hr 05/18/18 18:15 05/19/18 21:07 Lactated Ringers Solution IV 75 mls/hr ASDIR [facility] Administration Levofloxacin 750 mg in 150 mls @ 150 mls/hr 05/19/18 10:00 05/19/18 10:15 Levaquin 750 Mg Premixed Ivpb - IVPB 150 mls/hr DAILY [facility] Administration Protocol Vancomycin HCl 1,000 mg in 250 mls @ 166.667 mls/hr 05/19/18 02:30 05/20/18 04:01 Vancomycin (Pre-Docked) IVPB 166.667 mls/hr BID@0230,1430 [facility] Administration Protocol Insulin Aspart 0 vial 05/20/18 11:00 Novolog Vial Sliding Scale - SQ ACHS [facility] Protocol Lactobacillus Acidophilus 1 tab 05/19/18 10:00 05/19/18 10:14 Bacid - PO 1 tab DAILY [facility] Administration Methylprednisolone Sodium Succinate 60 mg 05/19/18 18:00 05/20/18 04:01 Solu-Medrol - IVPUSH 60 mg Q8H-IV [facility] Administration Morphine Sulfate 4 mg 05/18/18 16:21 05/19/18 08:48 Morphine Sulfate IVPUSH 4 mg Q4H PRN Administration PAIN LEVEL 7 - 10 Mupirocin 1 applic 05/18/18 22:00 05/19/18 21:07 Bactroban Ointment (For Decolonization) - NS 05/23/18 21:59 1 applic BID [facility] Administration Pantoprazole Sodium 40 mg 05/19/18 10:00 05/19/18 10:13 Protonix - PO 40 mg DAILY [facility] Administration Sertraline HCl 125 mg 05/18/18 22:00 05/19/18 21:06 Zoloft - PO 125 mg HS [facility] Administration Sodium Chloride 2 spray 05/18/18 19:01 [place] Nasal [place] - NS Q6H PRN NASAL CONGESTION ASSESSMENT/PLAN: 52 yo F, PMH sleep apnea (c-pap at night), cryptogenic pneumonia?, p/w with, acute hypoxic respiratory failure 2/2 possible sepsis 2/2 pneumonia vs ILD. 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 rpt if spikes fever ID consult per ID: levaquin and vancomycin RF, DEION, ANCA, anti-GBM, HIV neg Thoracic consult incentive spirometer pain ctl bowel regimen f/u biopsy results 05/19/18 - CXR showed small apical pneumo, rpt CXR after chest tube removal showed discrete pneumo difficult to appreciate Flexeril prn for R shoulder tightness FEN dc IVF replete prn regular diet ppx Lovenox 40 SQ protonix bacid Dispo: pt stable and ready for transfer to floors. Further care per primary team/PCP POD2 VATS and lung biopsy PT eval Visit type - Emergency Visit Emergency Visit: Yes ED Registration Date: 05/13/18 Care time: The patient presented to the Emergency Department on the above date and was hospitalized for further evaluation of their emergent condition. - New Patient This patient is new to me today: Yes Date on this admission: 05/20/18 - Critical Care Critical Care patient: Yes Total Critical Care Time (in minutes): 38 Critical Care Statement: The care of this patient involved high complexity decision making to prevent further life threatening deterioration of the patient 's condition and/or to evaluate & treat vital organ system(s) failure or risk of failure.
--- NOTE | 2018-05-20 09:11 | PN ---
Progress Note, Physician History of Present Illness: feels better - Current Medication List Current Medications: Active Medications Albuterol Sulfate (Ventolin 0.083% Nebulizer Soln -) 1 amp NEB Q6H PRN PRN Reason: SHORT OF BREATH/WHEEZING Albuterol/Ipratropium (Duoneb -) 1 amp NEB RQ4H [facility] Last Admin: 05/20/18 08:33 Dose: 1 amp Chlorhexidine Gluconate (Hibiclens For Decolonization -) 1 applic TP HS [facility] Last Admin: 05/19/18 21:07 Dose: 1 applic Docusate Sodium (Colace -) 100 mg PO TID [facility] Last Admin: 05/19/18 21:07 Dose: 100 mg Enoxaparin Sodium (Lovenox -) 40 mg SQ DAILY [facility] Levofloxacin (Levaquin 750 Mg Premixed Ivpb -) 750 mg in 150 mls @ 150 mls/hr IVPB DAILY [facility]; Protocol Last Admin: 05/19/18 10:15 Dose: 150 mls/hr Vancomycin HCl (Vancomycin (Pre-Docked)) 1,000 mg in 250 mls @ 166.667 mls/hr IVPB BID@0230,1430 [facility]; Protocol Last Admin: 05/20/18 04:01 Dose: 166.667 mls/hr Insulin Aspart (Novolog Vial Sliding Scale -) 1 vial SQ ACHS [facility]; Protocol Lactobacillus Acidophilus (Bacid -) 1 tab PO DAILY [facility] Last Admin: 05/19/18 10:14 Dose: 1 tab Methylprednisolone Sodium Succinate (Solu-Medrol -) 60 mg IVPUSH Q8H-IV [facility] Last Admin: 05/20/18 04:01 Dose: 60 mg Morphine Sulfate (Morphine Sulfate) 4 mg IVPUSH Q4H PRN PRN Reason: PAIN LEVEL 7 - 10 Last Admin: 05/19/18 08:48 Dose: 4 mg Mupirocin (Bactroban Ointment (For Decolonization) -) 1 applic NS BID [facility] Stop: 05/23/18 21:59 Last Admin: 05/19/18 21:07 Dose: 1 applic Pantoprazole Sodium (Protonix -) 40 mg PO DAILY [facility] Last Admin: 05/19/18 10:13 Dose: 40 mg Sertraline HCl (Zoloft -) 125 mg PO [facility] Last Admin: 05/19/18 21:06 Dose: 125 mg Sodium Chloride ([place] Nasal [place] -) 2 spray NS Q6H PRN PRN Reason: NASAL CONGESTION - Objective Vital Signs: Vital Signs Temperature 98.8 F 05/19/18 18:00 Pulse Rate 106 H 05/20/18 08:00 Respiratory Rate 23 H 05/20/18 08:00 Blood Pressure 115/64 05/20/18 08:00 O2 Sat by Pulse Oximetry (%) 95 05/19/18 21:00 Cardiovascular: Yes: Regular Rate and Rhythm Respiratory: Yes: CTA Bilaterally, Diminished (at the bases), On Nasal O2 Labs: CBC, BMP 05/20/18 05:00 05/20/18 05:00 INR, PTT INR 0.98 (0.83-1.09) 05/18/18 05:30 Problem List - Problems (1) Pneumonia Assessment/Plan: --Previous w/u noted -ID consult noted -Abx per ID - Orders 05/14/18 14:30 Vancomycin 1 Gram (Pre-Docked) [Vancomycin (Pre-Docked)] 1,000 mg in 250 ml IVPB BID@0230,1430 05/15/18 10:00 levoFLOXacin 750 MG IVPB [Levaquin 750 mg Premixed Ivpb -] 750 mg in 150 ml IVPB DAILY Code(s): J18.9 - PNEUMONIA, UNSPECIFIED ORGANISM (2) Chronic lung disease Assessment/Plan: -Of unknown Etiology -Pulm on case -IV steroids--Taper -Nebs -TS consult for biopsy--VATs Operative Date: 05/18/18 Pre-Operative Diagnosis: PNA (unspecified), Increased SOB, decreased SpO2 on room air Operation: Bronchoscopy with washings, Right VATs, lung biopsy x2 Post-Operative Diagnosis: Same as Pre-op Surgeon: Ra Marshall [employer] Contact Printer: Cm Vargas Code(s): J98.4 - OTHER DISORDERS OF LUNG (3) Hypoxemia Assessment/Plan: -as above Code(s): R09.02 - HYPOXEMIA (4) Sleep apnea Code(s): G47.30 - SLEEP APNEA, UNSPECIFIED (5) Chest pain Code(s): R07.9 - CHEST PAIN, UNSPECIFIED
[2018-05-20] MEDS ORDERED: methylPREDNISolone NA SUCC 40 MG/1 ML VIAL IVPUSH SCH (09:12)
[2018-05-20] MEDS: PANTOPRAZOLE 40 MG TABLET (FP) PO SCH (10:00)
[2018-05-20] MEDS: MUPIROCIN 2% TOPICAL OINTMENT FOR DECOLONIZATION NS SCH (10:00)
[2018-05-20] MEDS ORDERED: ENOXAPARIN NA (PORCINE) 40 MG/0.4 ML DISP.SYRIN SQ SCH ×2 (10:00→18:00)
[2018-05-20] MEDS: LACTOBACILLUS ACIDOPHILUS 1 TABLET PO SCH (10:00)
[2018-05-20] MEDS ORDERED: INSULIN SLIDING SCALE (NOVOLOG) 1 VIAL SQ SCH (11:00)
--- NOTE | 2018-05-20 11:55 | PN ---
Teaching Attending Note Name of Resident: Cuong Pantoja ATTENDING PHYSICIAN STATEMENT I saw and evaluated the patient. I reviewed the resident's note and discussed the case with the resident. I agree with the resident's findings and plan as documented. SUBJECTIVE: Patient seen and examined in the ICU. Subjective improvement in breathing. Still requiring 4 NC, but weaning. Still with some STEVENSON. CXR: no discrete PTX / right basilar atelectasis OBJECTIVE: Intake & Output 05/17/18 05/18/18 05/19/18 05/20/18 23:59 23:59 23:59 23:59 Intake Total 1400 1550 3025 Output Total 405 1295 Balance 1400 1145 1730 Weight 214 lb 11.2 oz 215 lb 1.6 oz Last Vital Signs Temp Pulse Resp BP Pulse Ox 98.5 F 95 H 20 112/58 L 96 05/20/18 10:00 05/20/18 10:00 05/20/18 10:00 05/20/18 10:00 05/20/18 10:50 Active Medications Albuterol Sulfate (Ventolin 0.083% Nebulizer Soln -) 1 amp NEB Q6H PRN PRN Reason: SHORT OF BREATH/WHEEZING Albuterol/Ipratropium (Duoneb -) 1 amp NEB RQ4H [facility] Last Admin: 05/20/18 08:33 Dose: 1 amp Chlorhexidine Gluconate (Hibiclens For Decolonization -) 1 applic TP HS [facility] Last Admin: 05/19/18 21:07 Dose: 1 applic Docusate Sodium (Colace -) 100 mg PO TID [facility] Last Admin: 05/19/18 21:07 Dose: 100 mg Enoxaparin Sodium (Lovenox -) 40 mg SQ DAILY [facility] Levofloxacin (Levaquin 750 Mg Premixed Ivpb -) 750 mg in 150 mls @ 150 mls/hr IVPB DAILY [facility]; Protocol Last Admin: 05/20/18 10:00 Dose: 150 mls/hr Vancomycin HCl (Vancomycin (Pre-Docked)) 1,000 mg in 250 mls @ 166.667 mls/hr IVPB BID@0230,1430 [facility]; Protocol Last Admin: 05/20/18 04:01 Dose: 166.667 mls/hr Insulin Aspart (Novolog Vial Sliding Scale -) 1 vial SQ ACHS [facility]; Protocol Last Admin: 05/20/18 11:42 Dose: Not Given Lactobacillus Acidophilus (Bacid -) 1 tab PO DAILY [facility] Last Admin: 05/20/18 10:00 Dose: 1 tab Methylprednisolone Sodium Succinate (Solu-Medrol -) 30 mg IVPUSH Q8H-IV [facility] Last Admin: 05/20/18 09:59 Dose: 30 mg Morphine Sulfate (Morphine Sulfate) 4 mg IVPUSH Q4H PRN PRN Reason: PAIN LEVEL 7 - 10 Last Admin: 05/19/18 08:48 Dose: 4 mg Mupirocin (Bactroban Ointment (For Decolonization) -) 1 applic NS BID [facility] Stop: 05/23/18 21:59 Last Admin: 05/20/18 10:00 Dose: 1 applic Pantoprazole Sodium (Protonix -) 40 mg PO DAILY [facility] Last Admin: 05/20/18 10:00 Dose: 40 mg Sertraline HCl (Zoloft -) 125 mg PO HS [facility] Last Admin: 05/19/18 21:06 Dose: 125 mg Sodium Chloride ([place] Nasal [place] -) 2 spray NS Q6H PRN PRN Reason: NASAL CONGESTION Gen: NAD at rest Heart: RRR Lung: basilar rhonchi Abd: soft, nontender Ext: no edema Laboratory Results - last 24 hr 05/20/18 05/20/18 05:00 05:00 WBC 9.5 RBC 4.25 Hgb 13.0 Hct 39.6 MCV 93.2 MCH 30.6 MCHC 32.8 RDW 14.6 Plt Count 172 MPV 8.0 Absolute Neuts (auto) 8.5 H Neutrophils % 89.3 H Lymphocytes % 6.0 L Monocytes % 4.5 Eosinophils % 0.0 Basophils % 0.2 Nucleated RBC % 0 Sodium 139 Potassium 3.6 Chloride 102 Carbon Dioxide 29 Anion Gap 8 BUN 17 Creatinine 0.7 Creat Clearance w eGFR > 60 Random Glucose 174 H Calcium 7.4 L Phosphorus 3.9 Magnesium 2.5 H Total Bilirubin 0.5 AST 15 ALT 39 Alkaline Phosphatase 55 Total Protein 5.1 L Albumin 2.2 L ASSESSMENT AND PLAN: Acute Hypoxic Respiratory Failure Interstitial Lung Disease Acute Pneumonitis Obstructive Sleep Apnea - pain control - incentive spirometry - Medrol - inhaled bronchodilators - O2 to keep SpO2 >90% - Antibiotics per ID - f/u pathology - DVT/GI prophylaxis Dr Dukes
[2018-05-20] MEDS ORDERED: SODIUM CHLORIDE NASAL SPRAY 44 ML BOTTLE NS PRN (13:53)
[2018-05-20] MEDS ORDERED: ALBUTEROL SO4 0.083% IH SOL 2.5 MG/3 ML VIAL.NEB. NEB PRN (13:53)
[2018-05-20] MEDS ORDERED: CYCLOBENZAPRINE HCL 5 MG TABLET PO ONE (14:15)
[2018-05-20] MEDS ORDERED: CYCLOBENZAPRINE HCL 10 MG TABLET (FP) PO ONE (14:15)
[2018-05-20] MEDS: DOCUSATE SODIUM 100 MG CAPSULE (FP) PO SCH ×3 (15:12→21:16)
[2018-05-20] MEDS: HEPARIN NA (PORCINE) 5,000 UNITS/ML 1ML VIAL SQ SCH (15:13)
[2018-05-20] MEDS: INSULIN SLIDING SCALE (NOVOLOG) 1 VIAL SQ SCH ×2 (17:04→21:16)
[2018-05-20] MEDS: ENOXAPARIN NA (PORCINE) 40 MG/0.4 ML DISP.SYRIN SQ SCH (17:06)
[2018-05-20] MEDS: SERTRALINE HCL 50 MG TABLET (FP) PO SCH (21:16)
[2018-05-21] MEDS: ALBUTEROL SO4 2.5/IPRATROPIUM 0.5 INH SOL 3 ML VIAL.NEB. NEB SCH ×6 (00:05→22:00)
[2018-05-21] MEDS: morphine SULFATE 4 MG/ML VIAL IVPUSH PRN ×4 (00:22→23:40)
[2018-05-21] MEDS: VANCOMYCIN 1 GRAM (PRE-DOCKED) 1,000 MG/250 ML BAG IVPB SCH ×2 (02:40→14:15)
[2018-05-21] MEDS: methylPREDNISolone NA SUCC 40 MG/1 ML VIAL IVPUSH SCH ×3 (02:40→17:06)
[2018-05-21] MEDS: DOCUSATE SODIUM 100 MG CAPSULE (FP) PO SCH ×3 (06:29→21:18)
[2018-05-21 07:14] LABS: BASO % 0.5 % (0-2.0); EOS % 0.2 % (0-4.5); HEMATOCRIT 37.8 % (32.4-45.2); HEMOGLOBIN 13.4 GM/dL (10.7-15.3); LYMPH % 4.8 % (8-40); MCH 32.7 pg (25.7-33.7); MCHC 35.4 g/dl (32.0-36.0); MEAN CELL VOLUME 92.4 fl (80-96); MEAN PLT VOLUME 7.9 fl (7.5-11.1); MONO % 6.1 % (3.8-10.2); NEUT % 88.4 % (42.8-82.8); PLATELET COUNT 190 K/MM3 (134-434); RBC 4.09 M/mm3 (3.60-5.2); RDW 14.8 % (11.6-15.6); WHITE BLOOD COUNT 8.9 K/mm3 (4.0-10.0)
[2018-05-21] MEDS: INSULIN SLIDING SCALE (NOVOLOG) 1 VIAL SQ SCH ×4 (07:56→21:18)
[2018-05-21 08:10] LABS: ALBUMIN 2.5 g/dl (3.4-5.0); ALK PHOS 55 U/L (45-117); ANION GAP 8 MMOL/L (8-16); BILIRUBIN,TOTAL 0.7 mg/dL (0.2-1); BLOOD UREA NITROGEN 17 mg/dL (7-18); CALCIUM 7.6 mg/dL (8.5-10.1); CHLORIDE 105 mmol/L (98-107); CO2 26 mmol/L (21-32); CREATININE 0.7 mg/dL (0.55-1.3); GLUCOSE,RANDOM 148 mg/dL (74-106); MAGNESIUM 2.5 mg/dL (1.8-2.4); PHOSPHOROUS 2.5 mg/dL (2.5-4.9); POTASSIUM 3.8 mmol/L (3.5-5.1); SGOT/AST 20 U/L (15-37); SGPT/ALT 44 U/L (13-61); SODIUM 138 mmol/L (136-145); TOT PROT 5.5 g/dl (6.4-8.2)
[2018-05-21] MEDS: LACTOBACILLUS ACIDOPHILUS 1 TABLET PO SCH (09:29)
[2018-05-21] MEDS: PANTOPRAZOLE 40 MG TABLET (FP) PO SCH (09:29)
[2018-05-21] MEDS: ENOXAPARIN NA (PORCINE) 40 MG/0.4 ML DISP.SYRIN SQ SCH (09:29)
--- NOTE | 2018-05-21 10:35 | PN ---
Progress Note, Physician History of Present Illness: pulmonary feeling better,+ dyspneic with exertion,less cough. chest tube removed. o2 sat 93% on nasal o2 - Current Medication List Current Medications: Active Medications Albuterol Sulfate (Ventolin 0.083% Nebulizer Soln -) 1 amp NEB Q6H PRN PRN Reason: SHORT OF BREATH/WHEEZING Albuterol/Ipratropium (Duoneb -) 1 amp NEB RQ4H [facility] Last Admin: 05/21/18 08:01 Dose: 1 amp Docusate Sodium (Colace -) 100 mg PO TID [facility] Last Admin: 05/21/18 06:29 Dose: 100 mg Enoxaparin Sodium (Lovenox -) 40 mg SQ DAILY [facility] Last Admin: 05/21/18 09:29 Dose: 40 mg Levofloxacin (Levaquin 750 Mg Premixed Ivpb -) 750 mg in 150 mls @ 150 mls/hr IVPB DAILY [facility]; Protocol Last Admin: 05/21/18 09:28 Dose: 150 mls/hr Vancomycin HCl (Vancomycin (Pre-Docked)) 1,000 mg in 250 mls @ 166.667 mls/hr IVPB BID@0230,1430 [facility]; Protocol Last Admin: 05/21/18 02:40 Dose: 166.667 mls/hr Insulin Aspart (Novolog Vial Sliding Scale -) 1 vial SQ ACHS [facility]; Protocol Last Admin: 05/21/18 07:56 Dose: Not Given Lactobacillus Acidophilus (Bacid -) 1 tab PO DAILY [facility] Last Admin: 05/21/18 09:29 Dose: 1 tab Methylprednisolone Sodium Succinate (Solu-Medrol -) 30 mg IVPUSH Q8H-IV [facility] Last Admin: 05/21/18 09:29 Dose: 30 mg Morphine Sulfate (Morphine Sulfate) 4 mg IVPUSH Q4H PRN PRN Reason: PAIN LEVEL 7 - 10 Last Admin: 05/21/18 09:52 Dose: 4 mg Pantoprazole Sodium (Protonix -) 40 mg PO DAILY [facility] Last Admin: 05/21/18 09:29 Dose: 40 mg Sertraline HCl (Zoloft -) 125 mg PO HS [facility] Last Admin: 05/20/18 21:16 Dose: 125 mg Sodium Chloride ([place] Nasal [place] -) 2 spray NS Q6H PRN PRN Reason: NASAL CONGESTION - Objective Vital Signs: Vital Signs Temperature 97.6 F 05/21/18 06:00 Pulse Rate 105 H 05/21/18 06:00 Respiratory Rate 18 05/21/18 06:00 Blood Pressure 111/54 L 05/21/18 06:00 O2 Sat by Pulse Oximetry (%) 95 05/20/18 21:00 Constitutional: Yes: Well Nourished, Calm Eyes: Yes: WNL HENT: Yes: WNL Neck: Yes: WNL Cardiovascular: Yes: Regular Rate and Rhythm, S1, S2 Respiratory: Yes: Rales (bilateral crackles) Gastrointestinal: Yes: Normal Bowel Sounds, Soft Extremities: Yes: WNL Edema: No Labs: CBC, BMP 05/21/18 05:50 05/21/18 05:50 INR, PTT INR 0.98 (0.83-1.09) 05/18/18 05:30 - ....Imaging Chest X-ray: Report Reviewed, Image Reviewed Problem List - Problems (1) Acute hypoxemic respiratory failure Code(s): J96.01 - ACUTE RESPIRATORY FAILURE WITH HYPOXIA (2) Pneumonitis Code(s): J18.9 - PNEUMONIA, UNSPECIFIED ORGANISM (4) Hypoxemia Code(s): R09.02 - HYPOXEMIA (5) Sleep apnea Code(s): G47.30 - SLEEP APNEA, UNSPECIFIED (6) Interstitial lung disease Code(s): J84.9 - INTERSTITIAL PULMONARY DISEASE, UNSPECIFIED Assessment/Plan ASSESSMENT AND PLAN: Acute Hypoxic Respiratory Failure Interstitial Lung Disease Acute Pneumonitis Obstructive Sleep Apnea - pain control - incentive spirometry - Medrol - inhaled bronchodilators - O2 to keep SpO2 >90% - Antibiotics per ID - f/u pathology - DVT/GI prophylaxis DR ADAMS
--- NOTE | 2018-05-21 13:02 | PN ---
Progress Note, Physician Chief Complaint: Acute Hypoxic Respiratory Failure Interstitial Lung Disease Acute Pneumonitis History of Present Illness: Feels better but still SOB on exertion Family at bedside - Current Medication List Current Medications: Active Medications Albuterol Sulfate (Ventolin 0.083% Nebulizer Soln -) 1 amp NEB Q6H PRN PRN Reason: SHORT OF BREATH/WHEEZING Albuterol/Ipratropium (Duoneb -) 1 amp NEB RQ4H [facility] Last Admin: 05/21/18 12:05 Dose: 1 amp Docusate Sodium (Colace -) 100 mg PO TID [facility] Last Admin: 05/21/18 06:29 Dose: 100 mg Enoxaparin Sodium (Lovenox -) 40 mg SQ DAILY [facility] Last Admin: 05/21/18 09:29 Dose: 40 mg Levofloxacin (Levaquin 750 Mg Premixed Ivpb -) 750 mg in 150 mls @ 150 mls/hr IVPB DAILY [facility]; Protocol Last Admin: 05/21/18 09:28 Dose: 150 mls/hr Vancomycin HCl (Vancomycin (Pre-Docked)) 1,000 mg in 250 mls @ 166.667 mls/hr IVPB BID@0230,1430 [facility]; Protocol Last Admin: 05/21/18 02:40 Dose: 166.667 mls/hr Insulin Aspart (Novolog Vial Sliding Scale -) 1 vial SQ ACHS [facility]; Protocol Last Admin: 05/21/18 12:11 Dose: Not Given Lactobacillus Acidophilus (Bacid -) 1 tab PO DAILY [facility] Last Admin: 05/21/18 09:29 Dose: 1 tab Methylprednisolone Sodium Succinate (Solu-Medrol -) 30 mg IVPUSH Q8H-IV [facility] Last Admin: 05/21/18 09:29 Dose: 30 mg Morphine Sulfate (Morphine Sulfate) 4 mg IVPUSH Q4H PRN PRN Reason: PAIN LEVEL 7 - 10 Last Admin: 05/21/18 09:52 Dose: 4 mg Pantoprazole Sodium (Protonix -) 40 mg PO DAILY [facility] Last Admin: 05/21/18 09:29 Dose: 40 mg Sertraline HCl (Zoloft -) 125 mg PO HS [facility] Last Admin: 05/20/18 21:16 Dose: 125 mg Sodium Chloride ([place] Nasal [place] -) 2 spray NS Q6H PRN PRN Reason: NASAL CONGESTION - Objective Vital Signs: Vital Signs Temperature 98.5 F 05/21/18 10:00 Pulse Rate 111 H 05/21/18 10:00 Respiratory Rate 22 H 05/21/18 10:00 Blood Pressure 133/66 05/21/18 10:00 O2 Sat by Pulse Oximetry (%) 92 L 05/21/18 09:00 Constitutional: Yes: Well Nourished, Calm, Mild Distress Cardiovascular: Yes: Regular Rate and Rhythm Respiratory: Yes: Regular, On Nasal O2, Rales (BLL), SOB on Exertion Gastrointestinal: Yes: Normal Bowel Sounds, Soft Musculoskeletal: Yes: WNL Extremities: Yes: WNL Edema: No Labs: CBC, BMP 05/21/18 05:50 05/21/18 05:50 INR, PTT INR 0.98 (0.83-1.09) 05/18/18 05:30 Problem List - Problems (1) Acute hypoxemic respiratory failure Assessment/Plan: -Pulmonary on board -IV abx and medrol IVP -Nasal O2 -Bronchodilators -Bronchoscopy results pending -incentive spirometery Code(s): J96.01 - ACUTE RESPIRATORY FAILURE WITH HYPOXIA (2) Interstitial lung disease Assessment/Plan: -Pulmonary on board -IV abx and medrol IVP -Nasal O2 -Bronchodilators -Bronchoscopy results pending Code(s): J84.9 - INTERSTITIAL PULMONARY DISEASE, UNSPECIFIED (3) Pneumonitis Code(s): J18.9 - PNEUMONIA, UNSPECIFIED ORGANISM Assessment/Plan see problem list
[2018-05-21 14:09] LABS: ANISOCYTOSIS 1+; MACROCYTOSIS 1+; PLATELET ESTIMATE NORMAL
[2018-05-21] MEDS: SERTRALINE HCL 50 MG TABLET (FP) PO SCH (21:18)
[2018-05-22] MEDS: ALBUTEROL SO4 2.5/IPRATROPIUM 0.5 INH SOL 3 ML VIAL.NEB. NEB SCH ×6 (00:15→20:48)
[2018-05-22] MEDS: methylPREDNISolone NA SUCC 40 MG/1 ML VIAL IVPUSH SCH ×3 (01:14→17:09)
[2018-05-22] MEDS: VANCOMYCIN 1 GRAM (PRE-DOCKED) 1,000 MG/250 ML BAG IVPB SCH (01:52)
[2018-05-22] MEDS: DOCUSATE SODIUM 100 MG CAPSULE (FP) PO SCH ×3 (06:12→21:07)
[2018-05-22] MEDS: INSULIN SLIDING SCALE (NOVOLOG) 1 VIAL SQ SCH ×4 (06:12→21:04)
[2018-05-22] MEDS: LACTOBACILLUS ACIDOPHILUS 1 TABLET PO SCH (08:59)
[2018-05-22] MEDS: PANTOPRAZOLE 40 MG TABLET (FP) PO SCH (08:59)
[2018-05-22] MEDS: ENOXAPARIN NA (PORCINE) 40 MG/0.4 ML DISP.SYRIN SQ SCH (08:59)
--- NOTE | 2018-05-22 12:11 | PN ---
Progress Note, Physician History of Present Illness: pulmonary feeling better,alert,oob-chair,less dyspneic - Current Medication List Current Medications: Active Medications Albuterol Sulfate (Ventolin 0.083% Nebulizer Soln -) 1 amp NEB Q6H PRN PRN Reason: SHORT OF BREATH/WHEEZING Albuterol/Ipratropium (Duoneb -) 1 amp NEB RQ4H [facility] Last Admin: 05/22/18 11:22 Dose: 1 amp Docusate Sodium (Colace -) 100 mg PO TID [facility] Last Admin: 05/22/18 06:12 Dose: 100 mg Enoxaparin Sodium (Lovenox -) 40 mg SQ DAILY [facility] Last Admin: 05/22/18 08:59 Dose: 40 mg Levofloxacin (Levaquin 750 Mg Premixed Ivpb -) 750 mg in 150 mls @ 150 mls/hr IVPB DAILY [facility]; Protocol Last Admin: 05/22/18 08:58 Dose: 150 mls/hr Vancomycin HCl (Vancomycin (Pre-Docked)) 1,000 mg in 250 mls @ 166.667 mls/hr IVPB BID@0230,1430 [facility]; Protocol Last Admin: 05/22/18 01:52 Dose: 166.667 mls/hr Insulin Aspart (Novolog Vial Sliding Scale -) 1 vial SQ ACHS [facility]; Protocol Last Admin: 05/22/18 11:41 Dose: Not Given Lactobacillus Acidophilus (Bacid -) 1 tab PO DAILY [facility] Last Admin: 05/22/18 08:59 Dose: 1 tab Methylprednisolone Sodium Succinate (Solu-Medrol -) 30 mg IVPUSH Q8H-IV [facility] Last Admin: 05/22/18 08:59 Dose: 30 mg Morphine Sulfate (Morphine Sulfate) 4 mg IVPUSH Q4H PRN PRN Reason: PAIN LEVEL 7 - 10 Last Admin: 05/21/18 23:40 Dose: 4 mg Pantoprazole Sodium (Protonix -) 40 mg PO DAILY [facility] Last Admin: 05/22/18 08:59 Dose: 40 mg Sertraline HCl (Zoloft -) 125 mg PO HS [facility] Last Admin: 05/21/18 21:18 Dose: 125 mg Sodium Chloride ([place] Nasal [place] -) 2 spray NS Q6H PRN PRN Reason: NASAL CONGESTION - Objective Vital Signs: Vital Signs Temperature 98.2 F 05/22/18 08:18 Pulse Rate 101 H 05/22/18 08:18 Respiratory Rate 18 05/22/18 08:18 Blood Pressure 114/64 05/22/18 08:18 O2 Sat by Pulse Oximetry (%) 94 L 05/22/18 11:14 Constitutional: Yes: Well Nourished, Calm Eyes: Yes: WNL HENT: Yes: WNL Neck: Yes: WNL Cardiovascular: Yes: Regular Rate and Rhythm, S1, S2 Respiratory: Yes: Rales (bilateral crackles) Gastrointestinal: Yes: Normal Bowel Sounds, Soft Extremities: Yes: WNL Edema: No Labs: CBC, BMP Problem List - Problems (1) Acute hypoxemic respiratory failure Code(s): J96.01 - ACUTE RESPIRATORY FAILURE WITH HYPOXIA (2) Pneumonitis Code(s): J18.9 - PNEUMONIA, UNSPECIFIED ORGANISM (4) Hypoxemia Code(s): R09.02 - HYPOXEMIA (5) Sleep apnea Code(s): G47.30 - SLEEP APNEA, UNSPECIFIED (6) Interstitial lung disease Code(s): J84.9 - INTERSTITIAL PULMONARY DISEASE, UNSPECIFIED Assessment/Plan ASSESSMENT AND PLAN: Acute Hypoxic Respiratory Failure Interstitial Lung Disease Acute Pneumonitis Obstructive Sleep Apnea - pain control - incentive spirometry - Medrol - inhaled bronchodilators - O2 to keep SpO2 >90% - Antibiotics per ID - f/u pathology - DVT/GI prophylaxis - chest x-ray am DR ADAMS
--- NOTE | 2018-05-22 13:15 | PN ---
Progress Note (short form) - Note Progress Note: improving less sob day #9 antibiotics vancomycin/levaquin Vital Signs Period Temp Pulse Resp BP Sys/Cerrato Pulse Ox Last 24 Hr 97.5 F-98.3 F 96-111 16-18 103-138/59-75 92-94 cor-rrr lungs decreased bs at bases abd soft,nt ext no edema CBC, BMP 05/21/18 05:50 05/21/18 05:50 Microbiology 05/18/18 14:42 Bronchial Washings - Left Lower Lobe Gram Stain - Final 05/18/18 14:42 Bronchial Washings - Left Lower Lobe Bronchoalveolar Lavage Culture - Final NORMAL RESPIRATORY NED 05/18/18 14:42 Bronchial Washings - Right Medial Gram Stain - Final 05/18/18 14:42 Bronchial Washings - Right Medial Bronchoalveolar Lavage Culture - Final 05/18/18 15:55 Lung - Right Lower Lobe Gram Stain - Final 05/18/18 15:55 Lung - Right Lower Lobe Tissue Culture - Final NO GROWTH OF AEROBIC ORGANISMS AFTER 48 HOURS INCUBATION 05/18/18 15:55 Lung - Right Lower Lobe Anaerobic Culture - Final NO ANAEROBES WERE ISOLATED 05/18/18 14:42 Tissue-Other GALLITO Preparation - Preliminary 05/18/18 14:42 Tissue-Other Fungal Culture - Preliminary 05/18/18 14:42 Bronchial Washings - Left Lower Lobe GALLITO Preparation - Preliminary 05/18/18 14:42 Bronchial Washings - Left Lower Lobe Fungal Culture - Preliminary 05/18/18 14:42 Bronchial Washings - Right Medial G[place]IT[place] Preparation - Preliminary 05/18/18 14:42 Bronchial Washings - Right Medial Fungal Culture - Preliminary 05/14/18 14:00 Nasopharyngeal Swab Respiratory Virus Panel - Final 05/18/18 14:41 Bronchial Washings - Left Lower Lobe AFB Smear Concentration - Final 05/18/18 14:41 Bronchial Washings - Left Lower Lobe Mycobacterial Culture - Preliminary 05/18/18 14:41 Bronchial Washings - Right Medial AFB Smear Concentration - Final 05/18/18 14:41 Bronchial Washings - Right Medial Mycobacterial Culture - Preliminary 05/18/18 15:56 Lung - Right Lower Lobe AFB Smear Concentration - Final 05/18/18 15:56 Lung - Right Lower Lobe Mycobacterial Culture - Preliminary 05/13/18 20:00 Blood - Peripheral Venous Blood Culture - Final NO GROWTH AFTER 5 DAYS INCUBATION 05/13/18 19:30 Blood - Peripheral Venous Blood Culture - Final NO GROWTH AFTER 5 DAYS INCUBATION 05/14/18 05:45 Sputum - Expectorated Gram Stain - Final 05/14/18 05:45 Sputum - Expectorated Sputum Culture - Final NORMAL RESPIRATORY NED 05/13/18 18:36 Urine - Urine Clean Catch Urine Culture - Final Contaminated: Please Repeat 05/13/18 18:36 Urine For Antigen Detection Legionella Antigen - Final 05/13/18 18:36 Urine For Antigen Detection Streptococcus pneumoniae Antigen (M - Final Current Medications Albuterol Sulfate (Ventolin 0.083% Nebulizer Soln -) 1 amp NEB Q6H PRN PRN Reason: SHORT OF BREATH/WHEEZING Albuterol/Ipratropium (Duoneb -) 1 amp NEB RQ4H [facility] Last Admin: 05/22/18 11:22 Dose: 1 amp Docusate Sodium (Colace -) 100 mg PO TID [facility] Last Admin: 05/22/18 06:12 Dose: 100 mg Enoxaparin Sodium (Lovenox -) 40 mg SQ DAILY [facility] Last Admin: 05/22/18 08:59 Dose: 40 mg Levofloxacin (Levaquin 750 Mg Premixed Ivpb -) 750 mg in 150 mls @ 150 mls/hr IVPB DAILY [facility]; Protocol Last Admin: 05/22/18 08:58 Dose: 150 mls/hr Vancomycin HCl (Vancomycin (Pre-Docked)) 1,000 mg in 250 mls @ 166.667 mls/hr IVPB BID@0230,1430 [facility]; Protocol Last Admin: 05/22/18 01:52 Dose: 166.667 mls/hr Insulin Aspart (Novolog Vial Sliding Scale -) 1 vial SQ ACHS [facility]; Protocol Last Admin: 05/22/18 11:41 Dose: Not Given Lactobacillus Acidophilus (Bacid -) 1 tab PO DAILY [facility] Last Admin: 05/22/18 08:59 Dose: 1 tab Methylprednisolone Sodium Succinate (Solu-Medrol -) 30 mg IVPUSH Q8H-IV [facility] Last Admin: 05/22/18 08:59 Dose: 30 mg Morphine Sulfate (Morphine Sulfate) 4 mg IVPUSH Q4H PRN PRN Reason: PAIN LEVEL 7 - 10 Last Admin: 05/21/18 23:40 Dose: 4 mg Pantoprazole Sodium (Protonix -) 40 mg PO DAILY [facility] Last Admin: 05/22/18 08:59 Dose: 40 mg Sertraline HCl (Zoloft -) 125 mg PO HS [facility] Last Admin: 05/21/18 21:18 Dose: 125 mg Sodium Chloride ([place] Nasal [place] -) 2 spray NS Q6H PRN PRN Reason: NASAL CONGESTION a/p s/p lung biopsy cultures unrevealing awaiting pathology day #9 antibiotics will d/c and observe d/w pulmonary
--- NOTE | 2018-05-22 13:58 | PN ---
Progress Note, Physician Chief Complaint: Acute Hypoxic Respiratory Failure Interstitial Lung Disease Acute Pneumonitis History of Present Illness: Feels much better, mild SOB on exertion doing better with I/S - Current Medication List Current Medications: Active Medications Albuterol Sulfate (Ventolin 0.083% Nebulizer Soln -) 1 amp NEB Q6H PRN PRN Reason: SHORT OF BREATH/WHEEZING Albuterol/Ipratropium (Duoneb -) 1 amp NEB RQ4H [facility] Last Admin: 05/22/18 11:22 Dose: 1 amp Docusate Sodium (Colace -) 100 mg PO TID [facility] Last Admin: 05/22/18 06:12 Dose: 100 mg Enoxaparin Sodium (Lovenox -) 40 mg SQ DAILY [facility] Last Admin: 05/22/18 08:59 Dose: 40 mg Insulin Aspart (Novolog Vial Sliding Scale -) 1 vial SQ ACHS [facility]; Protocol Last Admin: 05/22/18 11:41 Dose: Not Given Lactobacillus Acidophilus (Bacid -) 1 tab PO DAILY [facility] Last Admin: 05/22/18 08:59 Dose: 1 tab Methylprednisolone Sodium Succinate (Solu-Medrol -) 30 mg IVPUSH Q8H-IV [facility] Last Admin: 05/22/18 08:59 Dose: 30 mg Morphine Sulfate (Morphine Sulfate) 4 mg IVPUSH Q4H PRN PRN Reason: PAIN LEVEL 7 - 10 Last Admin: 05/21/18 23:40 Dose: 4 mg Pantoprazole Sodium (Protonix -) 40 mg PO DAILY [facility] Last Admin: 05/22/18 08:59 Dose: 40 mg Sertraline HCl (Zoloft -) 125 mg PO HS [facility] Last Admin: 05/21/18 21:18 Dose: 125 mg Sodium Chloride ([place] Nasal [place] -) 2 spray NS Q6H PRN PRN Reason: NASAL CONGESTION - Objective Vital Signs: Vital Signs Temperature 98.2 F 05/22/18 08:18 Pulse Rate 101 H 05/22/18 08:18 Respiratory Rate 18 05/22/18 08:18 Blood Pressure 114/64 05/22/18 08:18 O2 Sat by Pulse Oximetry (%) 94 L 05/22/18 11:14 Constitutional: Yes: Well Nourished, No Distress, Calm Cardiovascular: Yes: Regular Rate and Rhythm Respiratory: Yes: On Nasal O2, Rales (BLL), SOB on Exertion Gastrointestinal: Yes: Normal Bowel Sounds, Soft Musculoskeletal: Yes: WNL Extremities: Yes: WNL Edema: No Peripheral Pulses WNL: Yes Neurological: Yes: Alert, Oriented Psychiatric: Yes: Alert, Oriented Labs: CBC, BMP 05/21/18 05:50 05/21/18 05:50 INR, PTT INR 0.98 (0.83-1.09) 05/18/18 05:30 Problem List - Problems (1) Acute hypoxemic respiratory failure Assessment/Plan: -Pulmonary on board -IV abx discontinued -medrol IVP -Nasal O2 -Bronchodilators -Bronchoscopy results pending -incentive spirometery Code(s): J96.01 - ACUTE RESPIRATORY FAILURE WITH HYPOXIA (2) Interstitial lung disease Assessment/Plan: -Pulmonary on board -IV abx dc'd -medrol IVP -Nasal O2 -Bronchodilators -Bronchoscopy results pending Code(s): J84.9 - INTERSTITIAL PULMONARY DISEASE, UNSPECIFIED (3) Pneumonitis Code(s): J18.9 - PNEUMONIA, UNSPECIFIED ORGANISM Assessment/Plan see problem list
[2018-05-22] MEDS: SERTRALINE HCL 50 MG TABLET (FP) PO SCH (21:01)
[2018-05-22] MEDS: morphine SULFATE 4 MG/ML VIAL IVPUSH PRN (22:55)
[2018-05-23] MEDS: methylPREDNISolone NA SUCC 40 MG/1 ML VIAL IVPUSH SCH ×3 (01:45→17:06)
[2018-05-23] MEDS: DOCUSATE SODIUM 100 MG CAPSULE (FP) PO SCH ×3 (06:03→21:15)
[2018-05-23] MEDS: INSULIN SLIDING SCALE (NOVOLOG) 1 VIAL SQ SCH ×4 (06:42→21:17)
[2018-05-23] MEDS: ALBUTEROL SO4 2.5/IPRATROPIUM 0.5 INH SOL 3 ML VIAL.NEB. NEB SCH ×4 (08:18→20:34)
[2018-05-23] MEDS: LACTOBACILLUS ACIDOPHILUS 1 TABLET PO SCH (09:49)
[2018-05-23] MEDS: ENOXAPARIN NA (PORCINE) 40 MG/0.4 ML DISP.SYRIN SQ SCH (09:49)
[2018-05-23] MEDS: PANTOPRAZOLE 40 MG TABLET (FP) PO SCH (09:49)
--- NOTE | 2018-05-23 13:23 | PN ---
Progress Note, Physician History of Present Illness: pulmonary alert,still dyspneic with min exertion,O2 sat 93% on o2 - Current Medication List Current Medications: Active Medications Albuterol Sulfate (Ventolin 0.083% Nebulizer Soln -) 1 amp NEB Q6H PRN PRN Reason: SHORT OF BREATH/WHEEZING Albuterol/Ipratropium (Duoneb -) 1 amp NEB RQ4H [facility] Last Admin: 05/23/18 12:24 Dose: 1 amp Docusate Sodium (Colace -) 100 mg PO TID [facility] Last Admin: 05/23/18 06:03 Dose: Not Given Enoxaparin Sodium (Lovenox -) 40 mg SQ DAILY [facility] Last Admin: 05/23/18 09:49 Dose: 40 mg Insulin Aspart (Novolog Vial Sliding Scale -) 1 vial SQ ACHS [facility]; Protocol Last Admin: 05/23/18 11:45 Dose: Not Given Lactobacillus Acidophilus (Bacid -) 1 tab PO DAILY [facility] Last Admin: 05/23/18 09:49 Dose: 1 tab Methylprednisolone Sodium Succinate (Solu-Medrol -) 30 mg IVPUSH Q8H-IV [facility] Last Admin: 05/23/18 09:49 Dose: 30 mg Morphine Sulfate (Morphine Sulfate) 4 mg IVPUSH Q4H PRN PRN Reason: PAIN LEVEL 7 - 10 Last Admin: 05/22/18 22:55 Dose: 4 mg Pantoprazole Sodium (Protonix -) 40 mg PO DAILY [facility] Last Admin: 05/23/18 09:49 Dose: 40 mg Sertraline HCl (Zoloft -) 125 mg PO HS [facility] Last Admin: 05/22/18 21:01 Dose: 125 mg Sodium Chloride ([place] Nasal [place] -) 2 spray NS Q6H PRN PRN Reason: NASAL CONGESTION - Objective Vital Signs: Vital Signs Temperature 98.2 F 05/23/18 08:14 Pulse Rate 92 H 05/23/18 08:14 Respiratory Rate 20 05/23/18 08:14 Blood Pressure 104/66 05/23/18 08:14 O2 Sat by Pulse Oximetry (%) 97 05/23/18 08:14 Constitutional: Yes: Well Nourished, Calm Eyes: Yes: WNL HENT: Yes: WNL Neck: Yes: WNL Cardiovascular: Yes: Regular Rate and Rhythm, S1, S2 Respiratory: Yes: Rales (bilateral crackles) Gastrointestinal: Yes: Normal Bowel Sounds, Soft Extremities: Yes: WNL Edema: No Labs: CBC, BMP Problem List - Problems (1) Acute hypoxemic respiratory failure Code(s): J96.01 - ACUTE RESPIRATORY FAILURE WITH HYPOXIA (2) Pneumonitis Code(s): J18.9 - PNEUMONIA, UNSPECIFIED ORGANISM (4) Hypoxemia Code(s): R09.02 - HYPOXEMIA (5) Sleep apnea Code(s): G47.30 - SLEEP APNEA, UNSPECIFIED (6) Interstitial lung disease Code(s): J84.9 - INTERSTITIAL PULMONARY DISEASE, UNSPECIFIED Assessment/Plan ASSESSMENT AND PLAN: Acute Hypoxic Respiratory Failure Interstitial Lung Disease Acute Pneumonitis Obstructive Sleep Apnea - pain control - incentive spirometry - Medrol - inhaled bronchodilators - O2 to keep SpO2 >90% - Antibiotics per ID - f/u pathology - DVT/GI prophylaxis - chest x-ray DR ADAMS
[2018-05-23] MEDS ORDERED: ALPRAZolam 0.25 MG TABLET PO PRN (14:14)
--- NOTE | 2018-05-23 14:15 | PN ---
Progress Note, Physician Chief Complaint: patient seen and examined sitting up in bed desaturates when she moves around s/p lung biopsy , s/p chest tube removal now on telemtery floor on iv steroids got very anxious earlier in the day - Current Medication List Current Medications: Active Medications Albuterol Sulfate (Ventolin 0.083% Nebulizer Soln -) 1 amp NEB Q6H PRN PRN Reason: SHORT OF BREATH/WHEEZING Albuterol/Ipratropium (Duoneb -) 1 amp NEB RQ4H [facility] Last Admin: 05/23/18 12:24 Dose: 1 amp Docusate Sodium (Colace -) 100 mg PO TID [facility] Last Admin: 05/23/18 06:03 Dose: Not Given Enoxaparin Sodium (Lovenox -) 40 mg SQ DAILY [facility] Last Admin: 05/23/18 09:49 Dose: 40 mg Insulin Aspart (Novolog Vial Sliding Scale -) 1 vial SQ ACHS [facility]; Protocol Last Admin: 05/23/18 11:45 Dose: Not Given Lactobacillus Acidophilus (Bacid -) 1 tab PO DAILY [facility] Last Admin: 05/23/18 09:49 Dose: 1 tab Methylprednisolone Sodium Succinate (Solu-Medrol -) 30 mg IVPUSH Q8H-IV [facility] Last Admin: 05/23/18 09:49 Dose: 30 mg Pantoprazole Sodium (Protonix -) 40 mg PO DAILY [facility] Last Admin: 05/23/18 09:49 Dose: 40 mg Sertraline HCl (Zoloft -) 125 mg PO HS [facility] Last Admin: 05/22/18 21:01 Dose: 125 mg Sodium Chloride ([place] Nasal [place] -) 2 spray NS Q6H PRN PRN Reason: NASAL CONGESTION - Objective Vital Signs: Vital Signs Temperature 98.3 F 05/23/18 13:28 Pulse Rate 103 H 05/23/18 13:28 Respiratory Rate 20 05/23/18 13:28 Blood Pressure 119/75 05/23/18 13:28 O2 Sat by Pulse Oximetry (%) 97 05/23/18 08:14 Constitutional: Yes: Calm Cardiovascular: Yes: Regular Rate and Rhythm, S1, S2 Respiratory: Yes: Diminished Gastrointestinal: Yes: Normal Bowel Sounds, Soft Edema: No Integumentary: Yes: Other (chest tube site is clean dressing removed) Neurological: Yes: Alert, Oriented Labs: CBC, BMP 05/21/18 05:50 05/21/18 05:50 INR, PTT INR 0.98 (0.83-1.09) 05/18/18 05:30 Problem List - Problems (1) Hypoxemia Assessment/Plan: iv abx stopped took 9 days of abx iv medrol s/pVATS / lung biopsy awaiting lung pathology chest ct report noted on oxygen bronchodilators dvt ppx Code(s): R09.02 - HYPOXEMIA
[2018-05-23] MEDS: SERTRALINE HCL 50 MG TABLET (FP) PO SCH (21:13)
[2018-05-23] MEDS: morphine SULFATE 4 MG/ML VIAL IVPUSH PRN (22:16)
[2018-05-24] MEDS: ALBUTEROL SO4 2.5/IPRATROPIUM 0.5 INH SOL 3 ML VIAL.NEB. NEB SCH ×7 (00:30→20:05)
[2018-05-24] MEDS: methylPREDNISolone NA SUCC 40 MG/1 ML VIAL IVPUSH SCH ×4 (01:30→17:24)
[2018-05-24] MEDS: DOCUSATE SODIUM 100 MG CAPSULE (FP) PO SCH ×3 (06:03→22:03)
[2018-05-24] MEDS: INSULIN SLIDING SCALE (NOVOLOG) 1 VIAL SQ SCH ×4 (06:03→22:02)
[2018-05-24 06:49] LABS: BASO % 0.1 % (0-2.0); EOS % 0.7 % (0-4.5); HEMATOCRIT 40.4 % (32.4-45.2); HEMOGLOBIN 14.2 GM/dL (10.7-15.3); MCH 32.4 pg (25.7-33.7); MCHC 35.2 g/dl (32.0-36.0); MEAN PLT VOLUME 8.1 fl (7.5-11.1); MONO % 5.7 % (3.8-10.2); NEUT % 85.5 % (42.8-82.8); PLATELET COUNT 166 K/MM3 (134-434); RBC 4.39 M/mm3 (3.60-5.2); RDW 15.5 % (11.6-15.6); WHITE BLOOD COUNT 11.4 K/mm3 (4.0-10.0)
[2018-05-24 07:15] LABS: ALBUMIN 2.7 g/dl (3.4-5.0); ALK PHOS 56 U/L (45-117); ANION GAP 6 MMOL/L (8-16); BILIRUBIN,TOTAL 0.5 mg/dL (0.2-1); BLOOD UREA NITROGEN 20 mg/dL (7-18); CALCIUM 8.5 mg/dL (8.5-10.1); CHLORIDE 102 mmol/L (98-107); CO2 30 mmol/L (21-32); CREATININE 0.6 mg/dL (0.55-1.3); GLUCOSE,RANDOM 119 mg/dL (74-106); POTASSIUM 4.4 mmol/L (3.5-5.1); SGOT/AST 16 U/L (15-37); SGPT/ALT 51 U/L (13-61); SODIUM 138 mmol/L (136-145); TOT PROT 5.8 g/dl (6.4-8.2)
--- NOTE | 2018-05-24 08:15 | PN ---
Progress Note, Physician - Current Medication List Current Medications: Active Medications Albuterol Sulfate (Ventolin 0.083% Nebulizer Soln -) 1 amp NEB Q6H PRN PRN Reason: SHORT OF BREATH/WHEEZING Albuterol/Ipratropium (Duoneb -) 1 amp NEB RQ4H [facility] Last Admin: 05/24/18 07:21 Dose: 1 amp Alprazolam (Xanax -) 0.25 mg PO DAILY PRN PRN Reason: ANXIETY Docusate Sodium (Colace -) 100 mg PO TID [facility] Last Admin: 05/24/18 06:03 Dose: Not Given Enoxaparin Sodium (Lovenox -) 40 mg SQ DAILY [facility] Last Admin: 05/23/18 09:49 Dose: 40 mg Insulin Aspart (Novolog Vial Sliding Scale -) 1 vial SQ ACHS [facility]; Protocol Last Admin: 05/24/18 06:03 Dose: Not Given Lactobacillus Acidophilus (Bacid -) 1 tab PO DAILY [facility] Last Admin: 05/23/18 09:49 Dose: 1 tab Methylprednisolone Sodium Succinate (Solu-Medrol -) 30 mg IVPUSH Q8H-IV [facility] Last Admin: 05/24/18 01:30 Dose: 30 mg Morphine Sulfate (Morphine Sulfate) 4 mg IVPUSH Q4H PRN PRN Reason: PAIN LEVEL 7 - 10 Last Admin: 05/23/18 22:16 Dose: 4 mg Pantoprazole Sodium (Protonix -) 40 mg PO DAILY [facility] Last Admin: 05/23/18 09:49 Dose: 40 mg Sertraline HCl (Zoloft -) 125 mg PO HS [facility] Last Admin: 05/23/18 21:13 Dose: 125 mg Sodium Chloride ([place] Nasal [place] -) 2 spray NS Q6H PRN PRN Reason: NASAL CONGESTION - Objective Vital Signs: Vital Signs Temperature 97.9 F 05/24/18 06:00 Pulse Rate 96 H 05/24/18 06:00 Respiratory Rate 20 05/24/18 06:00 Blood Pressure 128/79 05/24/18 06:00 O2 Sat by Pulse Oximetry (%) 96 05/23/18 20:29 Cardiovascular: Yes: Regular Rate and Rhythm Respiratory: Yes: On Nasal O2, Rales (at the bases) Gastrointestinal: Yes: Normal Bowel Sounds, Soft Labs: CBC, BMP 05/24/18 06:00 05/24/18 06:00 INR, PTT INR 0.98 (0.83-1.09) 05/18/18 05:30 Problem List - Problems (1) Pneumonia Code(s): J18.9 - PNEUMONIA, UNSPECIFIED ORGANISM (2) Chronic lung disease Assessment/Plan: -Of unknown Etiology -Pulm on case -IV steroids--Taper--po -Nebs Operative Date: 05/18/18 Pre-Operative Diagnosis: PNA (unspecified), Increased SOB, decreased SpO2 on room air Operation: Bronchoscopy with washings, Right VATs, lung biopsy x2 Post-Operative Diagnosis: Same as Pre-op Surgeon: Ra Marshall Grain Elevator Man: Cm Vargas Code(s): J98.4 - OTHER DISORDERS OF LUNG (3) Hypoxemia Assessment/Plan: -as above Code(s): R09.02 - HYPOXEMIA (4) Sleep apnea Code(s): G47.30 - SLEEP APNEA, UNSPECIFIED (5) Chest pain Code(s): R07.9 - CHEST PAIN, UNSPECIFIED
[2018-05-24] MEDS: LACTOBACILLUS ACIDOPHILUS 1 TABLET PO SCH (09:21)
[2018-05-24] MEDS: ENOXAPARIN NA (PORCINE) 40 MG/0.4 ML DISP.SYRIN SQ SCH (09:22)
[2018-05-24] MEDS: PANTOPRAZOLE 40 MG TABLET (FP) PO SCH (09:22)
[2018-05-24] MEDS: ALPRAZolam 0.25 MG TABLET PO PRN (09:22)
[2018-05-24] MEDS ORDERED: predniSONE 10 MG TABLET (UD) PO SCH (10:00)
[2018-05-24 10:57] LABS: ACANTHOCYTES 0; ANISOCYTOSIS 0; HELMET CELLS 0; HOWELL-JOLLY BODIES 0; MACROCYTOSIS 0; OVALOCYTE 0; PLATELET ESTIMATE NORMAL; ROULEAU 0; SICKELED CELLS 0; TARGET CELLS 0; TEAR DROP CELLS 0; TOXIC GRANULATION 0
--- NOTE | 2018-05-24 13:30 | PN ---
Progress Note, Physician History of Present Illness: pulmonary alert,less dyspneic,o2 sat 94% on nasal cannula - Current Medication List Current Medications: Active Medications Albuterol Sulfate (Ventolin 0.083% Nebulizer Soln -) 1 amp NEB Q6H PRN PRN Reason: SHORT OF BREATH/WHEEZING Albuterol/Ipratropium (Duoneb -) 1 amp NEB RQ4H [facility] Last Admin: 05/24/18 07:21 Dose: 1 amp Alprazolam (Xanax -) 0.25 mg PO DAILY PRN PRN Reason: ANXIETY Last Admin: 05/24/18 09:22 Dose: 0.25 mg Docusate Sodium (Colace -) 100 mg PO TID [facility] Last Admin: 05/24/18 06:03 Dose: Not Given Enoxaparin Sodium (Lovenox -) 40 mg SQ DAILY [facility] Last Admin: 05/24/18 09:22 Dose: 40 mg Insulin Aspart (Novolog Vial Sliding Scale -) 1 vial SQ ACHS [facility]; Protocol Last Admin: 05/24/18 12:04 Dose: Not Given Lactobacillus Acidophilus (Bacid -) 1 tab PO DAILY [facility] Last Admin: 05/24/18 09:21 Dose: 1 tab Morphine Sulfate (Morphine Sulfate) 4 mg IVPUSH Q4H PRN PRN Reason: PAIN LEVEL 7 - 10 Last Admin: 05/23/18 22:16 Dose: 4 mg Pantoprazole Sodium (Protonix -) 40 mg PO DAILY [facility] Last Admin: 05/24/18 09:22 Dose: 40 mg Prednisone (Deltasone -) 30 mg PO BID [facility] Sertraline HCl (Zoloft -) 125 mg PO HS [facility] Last Admin: 05/23/18 21:13 Dose: 125 mg Sodium Chloride ([place] Nasal [place] -) 2 spray NS Q6H PRN PRN Reason: NASAL CONGESTION - Objective Vital Signs: Vital Signs Temperature 98.0 F 05/24/18 10:00 Pulse Rate 100 H 05/24/18 10:00 Respiratory Rate 20 05/24/18 10:00 Blood Pressure 113/76 05/24/18 10:00 O2 Sat by Pulse Oximetry (%) 95 05/24/18 09:00 Constitutional: Yes: Well Nourished, Calm Eyes: Yes: WNL HENT: Yes: WNL Neck: Yes: WNL Cardiovascular: Yes: Regular Rate and Rhythm, Tachycardia, S1, S2 Respiratory: Yes: Rales (bilateral rales) Gastrointestinal: Yes: Normal Bowel Sounds, Soft Extremities: Yes: WNL Edema: No Labs: CBC, BMP 05/24/18 06:00 05/24/18 06:00 INR, PTT INR 0.98 (0.83-1.09) 05/18/18 05:30 Problem List - Problems (1) Acute hypoxemic respiratory failure Code(s): J96.01 - ACUTE RESPIRATORY FAILURE WITH HYPOXIA (2) Pneumonitis Code(s): J18.9 - PNEUMONIA, UNSPECIFIED ORGANISM (4) Hypoxemia Code(s): R09.02 - HYPOXEMIA (5) Sleep apnea Code(s): G47.30 - SLEEP APNEA, UNSPECIFIED (6) Interstitial lung disease Code(s): J84.9 - INTERSTITIAL PULMONARY DISEASE, UNSPECIFIED Assessment/Plan ASSESSMENT AND PLAN: Acute Hypoxic Respiratory Failure Interstitial Lung Disease Acute Pneumonitis Obstructive Sleep Apnea - pain control - incentive spirometry - Medrol q8 - inhaled bronchodilators - O2 to keep SpO2 >90% - f/u pathology - DVT/GI prophylaxis DR ADAMS
[2018-05-24] MEDS: SERTRALINE HCL 50 MG TABLET (FP) PO SCH (21:54)
[2018-05-24] MEDS: morphine SULFATE 4 MG/ML VIAL IVPUSH PRN (23:56)
[2018-05-25] MEDS: ALBUTEROL SO4 2.5/IPRATROPIUM 0.5 INH SOL 3 ML VIAL.NEB. NEB SCH ×6 (00:11→20:40)
[2018-05-25] MEDS: methylPREDNISolone NA SUCC 40 MG/1 ML VIAL IVPUSH SCH ×3 (01:21→17:50)
[2018-05-25] MEDS: DOCUSATE SODIUM 100 MG CAPSULE (FP) PO SCH ×3 (06:03→21:28)
[2018-05-25] MEDS: INSULIN SLIDING SCALE (NOVOLOG) 1 VIAL SQ SCH ×4 (06:03→21:27)
[2018-05-25] MEDS ORDERED: PT OWN MED DRAWER 7, Y5N ONE (10:04)
[2018-05-25] MEDS: LACTOBACILLUS ACIDOPHILUS 1 TABLET PO SCH (10:10)
[2018-05-25] MEDS: ALPRAZolam 0.25 MG TABLET PO PRN (10:10)
[2018-05-25] MEDS: ENOXAPARIN NA (PORCINE) 40 MG/0.4 ML DISP.SYRIN SQ SCH (10:10)
[2018-05-25] MEDS: PANTOPRAZOLE 40 MG TABLET (FP) PO SCH (10:11)
[2018-05-25 12:24] VITALS: BMI 42.3
--- NOTE | 2018-05-25 12:57 | PN ---
Progress Note, Physician History of Present Illness: PULMONARY ALERT,FEELING BETTER,LESS DYSPNEIC - Current Medication List Current Medications: Active Medications Albuterol Sulfate (Ventolin 0.083% Nebulizer Soln -) 1 amp NEB Q6H PRN PRN Reason: SHORT OF BREATH/WHEEZING Albuterol/Ipratropium (Duoneb -) 1 amp NEB RQ4H [facility] Last Admin: 05/25/18 08:40 Dose: 1 amp Alprazolam (Xanax -) 0.25 mg PO DAILY PRN PRN Reason: ANXIETY Last Admin: 05/25/18 10:10 Dose: 0.25 mg Docusate Sodium (Colace -) 100 mg PO TID [facility] Last Admin: 05/25/18 06:03 Dose: Not Given Enoxaparin Sodium (Lovenox -) 40 mg SQ DAILY [facility] Last Admin: 05/25/18 10:10 Dose: 40 mg Insulin Aspart (Novolog Vial Sliding Scale -) 1 vial SQ [facility]; Protocol Last Admin: 05/25/18 12:16 Dose: Not Given Lactobacillus Acidophilus (Bacid -) 1 tab PO DAILY [facility] Last Admin: 05/25/18 10:10 Dose: 1 tab Methylprednisolone Sodium Succinate (Solu-Medrol -) 30 mg IVPUSH Q8H-IV [facility] Last Admin: 05/25/18 10:10 Dose: 30 mg Morphine Sulfate (Morphine Sulfate) 4 mg IVPUSH Q4H PRN PRN Reason: PAIN LEVEL 7 - 10 Last Admin: 05/24/18 23:56 Dose: 4 mg Pantoprazole Sodium (Protonix -) 40 mg PO DAILY [facility] Last Admin: 05/25/18 10:11 Dose: 40 mg Sertraline HCl (Zoloft -) 125 mg PO HS [facility] Last Admin: 05/24/18 21:54 Dose: 125 mg Sodium Chloride ([place] Nasal [place] -) 2 spray NS Q6H PRN PRN Reason: NASAL CONGESTION - Objective Vital Signs: Vital Signs Temperature 97.7 F 05/25/18 06:00 Pulse Rate 96 H 05/25/18 06:00 Respiratory Rate 20 05/25/18 06:00 Blood Pressure 111/67 05/25/18 06:00 O2 Sat by Pulse Oximetry (%) 95 05/24/18 20:36 Constitutional: Yes: Well Nourished, Calm Eyes: Yes: WNL HENT: Yes: WNL Neck: Yes: WNL Cardiovascular: Yes: Regular Rate and Rhythm, S1, S2 Respiratory: Yes: Rales (JANENE CRACKLES) Gastrointestinal: Yes: Normal Bowel Sounds, Soft Extremities: Yes: WNL Edema: No Labs: CBC, BMP Problem List - Problems (1) Acute hypoxemic respiratory failure Code(s): J96.01 - ACUTE RESPIRATORY FAILURE WITH HYPOXIA (2) Pneumonitis Code(s): J18.9 - PNEUMONIA, UNSPECIFIED ORGANISM (4) Hypoxemia Code(s): R09.02 - HYPOXEMIA (5) Sleep apnea Code(s): G47.30 - SLEEP APNEA, UNSPECIFIED (6) Interstitial lung disease Code(s): J84.9 - INTERSTITIAL PULMONARY DISEASE, UNSPECIFIED Assessment/Plan ASSESSMENT AND PLAN: Acute Hypoxic Respiratory Failure Interstitial Lung Disease Acute Pneumonitis Obstructive Sleep Apnea - pain control - incentive spirometry - Medrol q8 - inhaled bronchodilators - O2 to keep SpO2 >90% - awaiting pathology - DVT/GI prophylaxis DR ADAMS
--- NOTE | 2018-05-25 13:14 | PN ---
Progress Note, Physician Chief Complaint: ACUTE PNEUMONITIS History of Present Illness: PREVIOUS NOTES AND EVENTS REVIEWED ALERT AND AWAKE, NAD STATES FEELING BETTER AND ABLE TO WALK LONGER DISTANCE WITHOUT EXPERIENCING DYSPNEA - Current Medication List Current Medications: Active Medications Albuterol Sulfate (Ventolin 0.083% Nebulizer Soln -) 1 amp NEB Q6H PRN PRN Reason: SHORT OF BREATH/WHEEZING Albuterol/Ipratropium (Duoneb -) 1 amp NEB RQ4H [facility] Last Admin: 05/25/18 08:40 Dose: 1 amp Alprazolam (Xanax -) 0.25 mg PO DAILY PRN PRN Reason: ANXIETY Last Admin: 05/25/18 10:10 Dose: 0.25 mg Docusate Sodium (Colace -) 100 mg PO TID [facility] Last Admin: 05/25/18 06:03 Dose: Not Given Enoxaparin Sodium (Lovenox -) 40 mg SQ DAILY [facility] Last Admin: 05/25/18 10:10 Dose: 40 mg Insulin Aspart (Novolog Vial Sliding Scale -) 1 vial SQ ACHS [facility]; Protocol Last Admin: 05/25/18 12:16 Dose: Not Given Lactobacillus Acidophilus (Bacid -) 1 tab PO DAILY [facility] Last Admin: 05/25/18 10:10 Dose: 1 tab Methylprednisolone Sodium Succinate (Solu-Medrol -) 30 mg IVPUSH Q8H-IV [facility] Last Admin: 05/25/18 10:10 Dose: 30 mg Morphine Sulfate (Morphine Sulfate) 4 mg IVPUSH Q4H PRN PRN Reason: PAIN LEVEL 7 - 10 Last Admin: 05/24/18 23:56 Dose: 4 mg Pantoprazole Sodium (Protonix -) 40 mg PO DAILY [facility] Last Admin: 05/25/18 10:11 Dose: 40 mg Sertraline HCl (Zoloft -) 125 mg PO HS [facility] Last Admin: 05/24/18 21:54 Dose: 125 mg Sodium Chloride ([place] Nasal [place] -) 2 spray NS Q6H PRN PRN Reason: NASAL CONGESTION - Objective Vital Signs: Vital Signs Temperature 97.7 F 05/25/18 06:00 Pulse Rate 96 H 05/25/18 06:00 Respiratory Rate 20 05/25/18 06:00 Blood Pressure 111/67 05/25/18 06:00 O2 Sat by Pulse Oximetry (%) 95 05/24/18 20:36 Constitutional: Yes: Well Nourished, No Distress, Calm Neck: Yes: Supple Cardiovascular: Yes: Regular Rate and Rhythm Respiratory: Yes: Rales Gastrointestinal: Yes: Soft, Abdomen, Obese Musculoskeletal: Yes: WNL Extremities: Yes: WNL Edema: No Wound/Incision: Yes: Dressing Dry and Intact Neurological: Yes: Alert, Oriented Psychiatric: Yes: Alert, Oriented Labs: CBC, BMP 05/24/18 06:00 05/24/18 06:00 INR, PTT INR 0.98 (0.83-1.09) 05/18/18 05:30 Problem List - Problems (1) Acute hypoxemic respiratory failure Code(s): J96.01 - ACUTE RESPIRATORY FAILURE WITH HYPOXIA (2) Interstitial lung disease Code(s): J84.9 - INTERSTITIAL PULMONARY DISEASE, UNSPECIFIED (3) Pneumonitis Code(s): J18.9 - PNEUMONIA, UNSPECIFIED ORGANISM (4) Hypoxemia Code(s): R09.02 - HYPOXEMIA (5) Sleep apnea Code(s): G47.30 - SLEEP APNEA, UNSPECIFIED Assessment/Plan CONT WITH IV STEROIDS PENDING LUNG BX RESULTS CONT WITH INCENTIVE SPIROMETER PULM ON BOARD AND RECOMMENDATIONS APPRECIATED O2 VIA NC, MAINTAINED O2 SAT >90% DVT PPX
[2018-05-25] MEDS: SERTRALINE HCL 50 MG TABLET (FP) PO SCH (21:27)
[2018-05-25] MEDS: morphine SULFATE 4 MG/ML VIAL IVPUSH PRN (22:38)
[2018-05-25] MEDS: BENZOCAINE/MENTH/CETYLPYRD CL 1 EACH LOZENGE MM PRN (22:43)
[2018-05-26] MEDS: methylPREDNISolone NA SUCC 40 MG/1 ML VIAL IVPUSH SCH ×2 (01:10→09:39)
[2018-05-26] MEDS: DOCUSATE SODIUM 100 MG CAPSULE (FP) PO SCH ×3 (05:44→21:38)
[2018-05-26] MEDS: INSULIN SLIDING SCALE (NOVOLOG) 1 VIAL SQ SCH ×4 (06:01→21:38)
--- NOTE | 2018-05-26 07:29 | PN ---
Progress Note, Physician - Current Medication List Current Medications: Active Medications Albuterol Sulfate (Ventolin 0.083% Nebulizer Soln -) 1 amp NEB Q6H PRN PRN Reason: SHORT OF BREATH/WHEEZING Albuterol/Ipratropium (Duoneb -) 1 amp NEB RQ4H [facility] Last Admin: 05/26/18 00:00 Dose: Not Given Alprazolam (Xanax -) 0.25 mg PO DAILY PRN PRN Reason: ANXIETY Last Admin: 05/25/18 10:10 Dose: 0.25 mg Benzocaine/Menthol (Cepacol Lozenge -) 1 each MM PRN PRN PRN Reason: SORE THROAT Last Admin: 05/25/18 22:43 Dose: 1 each Docusate Sodium (Colace -) 100 mg PO TID [facility] Last Admin: 05/26/18 05:44 Dose: Not Given Enoxaparin Sodium (Lovenox -) 40 mg SQ DAILY [facility] Last Admin: 05/25/18 10:10 Dose: 40 mg Insulin Aspart (Novolog Vial Sliding Scale -) 1 vial SQ ACHS [facility]; Protocol Last Admin: 05/26/18 06:01 Dose: Not Given Lactobacillus Acidophilus (Bacid -) 1 tab PO DAILY [facility] Last Admin: 05/25/18 10:10 Dose: 1 tab Methylprednisolone Sodium Succinate (Solu-Medrol -) 30 mg IVPUSH Q8H-IV [facility] Last Admin: 05/26/18 01:10 Dose: 30 mg Morphine Sulfate (Morphine Sulfate) 4 mg IVPUSH Q4H PRN PRN Reason: PAIN LEVEL 7 - 10 Last Admin: 05/25/18 22:38 Dose: 4 mg Pantoprazole Sodium (Protonix -) 40 mg PO DAILY [facility] Last Admin: 05/25/18 10:11 Dose: 40 mg Sertraline HCl (Zoloft -) 125 mg PO HS [facility] Last Admin: 05/25/18 21:27 Dose: 125 mg Sodium Chloride ([place] Nasal [place] -) 2 spray NS Q6H PRN PRN Reason: NASAL CONGESTION - Objective Vital Signs: Vital Signs Temperature 97.9 F 05/26/18 06:00 Pulse Rate 81 05/26/18 06:00 Respiratory Rate 18 05/26/18 06:00 Blood Pressure 124/73 05/26/18 06:00 O2 Sat by Pulse Oximetry (%) 93 L 05/25/18 21:00 Cardiovascular: Yes: S1, S2 Respiratory: Yes: On Nasal O2, Rhonchi Gastrointestinal: Yes: Normal Bowel Sounds, Soft Labs: CBC, BMP 05/24/18 06:00 05/24/18 06:00 INR, PTT INR 0.98 (0.83-1.09) 05/18/18 05:30 Problem List - Problems (1) Pneumonia Assessment/Plan: --Previous w/u noted -ID consult noted -Off Abx per ID Code(s): J18.9 - PNEUMONIA, UNSPECIFIED ORGANISM (2) Chronic lung disease Assessment/Plan: -Of unknown Etiology -Pulm on case -IV steroids--Taper--po if ok with pulm -Nebs Operative Date: 05/18/18 Pre-Operative Diagnosis: PNA (unspecified), Increased SOB, decreased SpO2 on room air Operation: Bronchoscopy with washings, Right VATs, lung biopsy x2 Post-Operative Diagnosis: Same as Pre-op Surgeon: Ra Marshall Heat Treating Bluer: Cm Vargas Code(s): J98.4 - OTHER DISORDERS OF LUNG (3) Hypoxemia Assessment/Plan: -as above Code(s): R09.02 - HYPOXEMIA (4) Sleep apnea Code(s): G47.30 - SLEEP APNEA, UNSPECIFIED
[2018-05-26] MEDS: ALBUTEROL SO4 2.5/IPRATROPIUM 0.5 INH SOL 3 ML VIAL.NEB. NEB SCH ×5 (07:55→20:25)
[2018-05-26] MEDS ORDERED: PT OWN MED DRAWER 7, Y5N ONE (09:14)
[2018-05-26] MEDS: ALPRAZolam 0.25 MG TABLET PO PRN (09:38)
[2018-05-26] MEDS: LACTOBACILLUS ACIDOPHILUS 1 TABLET PO SCH (09:38)
[2018-05-26] MEDS: PANTOPRAZOLE 40 MG TABLET (FP) PO SCH (09:38)
[2018-05-26] MEDS: ENOXAPARIN NA (PORCINE) 40 MG/0.4 ML DISP.SYRIN SQ SCH (09:39)
--- NOTE | 2018-05-26 14:02 | PN ---
Progress Note (short form) - Note Progress Note: PULMONARY States breathing is improving. +nonproductive cough less. No fevers or chills. Pathology still pending. Vital Signs Period Temp Pulse Resp BP Sys/Cerrato Pulse Ox Last 24 Hr 97.7 F-97.9 F 81-108 18-20 122-137/68-76 93 Gen: NAD at rest Heart: RRR Lung: bibasilar rales Abd: soft, nontender Ext: no edema CBC, BMP 05/24/18 06:00 05/24/18 06:00 Active Medications Albuterol Sulfate (Ventolin 0.083% Nebulizer Soln -) 1 amp NEB Q6H PRN PRN Reason: SHORT OF BREATH/WHEEZING Albuterol/Ipratropium (Duoneb -) 1 amp NEB RQ4H [facility] Last Admin: 05/26/18 11:15 Dose: 1 amp Alprazolam (Xanax -) 0.25 mg PO DAILY PRN PRN Reason: ANXIETY Last Admin: 05/26/18 09:38 Dose: 0.25 mg Benzocaine/Menthol (Cepacol Lozenge -) 1 each MM PRN PRN PRN Reason: SORE THROAT Last Admin: 05/25/18 22:43 Dose: 1 each Docusate Sodium (Colace -) 100 mg PO TID [facility] Last Admin: 05/26/18 05:44 Dose: Not Given Enoxaparin Sodium (Lovenox -) 40 mg SQ DAILY [facility] Last Admin: 05/26/18 09:39 Dose: 40 mg Insulin Aspart (Novolog Vial Sliding Scale -) [address] [facility]; Protocol Last Admin: 05/26/18 11:58 Dose: Not Given Lactobacillus Acidophilus (Bacid -) 1 tab PO DAILY [facility] Last Admin: 05/26/18 09:38 Dose: 1 tab Methylprednisolone Sodium Succinate (Solu-Medrol -) 30 mg IVPUSH Q8H-IV [facility] Last Admin: 05/26/18 09:39 Dose: 30 mg Morphine Sulfate (Morphine Sulfate) 4 mg IVPUSH Q4H PRN PRN Reason: PAIN LEVEL 7 - 10 Last Admin: 05/25/18 22:38 Dose: 4 mg Nystatin (Nystatin Oral Suspension -) 500,000 units PO Q6HPO [facility] Pantoprazole Sodium (Protonix -) 40 mg PO DAILY [facility] Last Admin: 05/26/18 09:38 Dose: 40 mg Sertraline HCl (Zoloft -) 125 mg PO HS [facility] Last Admin: 05/25/18 21:27 Dose: 125 mg Sodium Chloride ([place] Nasal [place] -) 2 spray NS Q6H PRN PRN Reason: NASAL CONGESTION A/P Acute Hypoxic Respiratory Failure Interstitial Lung Disease Acute Pneumonitis r/o Sepsis Obstructive Sleep Apnea - pain control - incentive spirometry - bowel regimen - will change steroids to PO prednisone 40mg BID - inhaled bronchodilators - O2 to keep SpO2 >90% - on empiric antibiotics - f/u pathology - DVT/GI prophylaxis - if tolerating PO prednisone, can continue work up and treatment as outpt
[2018-05-26] MEDS: NYSTATIN 500,000 UNITS/5 ML SUSPENSION PO SCH ×3 (15:00→23:31)
[2018-05-26] MEDS: BENZOCAINE/MENTH/CETYLPYRD CL 1 EACH LOZENGE MM PRN (20:35)
[2018-05-26] MEDS: predniSONE 20 MG TABLET (UD) PO SCH (21:38)
[2018-05-26] MEDS: SERTRALINE HCL 50 MG TABLET (FP) PO SCH (21:38)
[2018-05-26] MEDS: morphine SULFATE 4 MG/ML VIAL IVPUSH PRN (23:31)
[2018-05-27] MEDS: DOCUSATE SODIUM 100 MG CAPSULE (FP) PO SCH ×2 (06:02→13:34)
[2018-05-27] MEDS: INSULIN SLIDING SCALE (NOVOLOG) 1 VIAL SQ SCH ×3 (06:08→17:24)
[2018-05-27] MEDS: NYSTATIN 500,000 UNITS/5 ML SUSPENSION PO SCH ×3 (06:08→17:24)
[2018-05-27] MEDS ORDERED: PT OWN MED DRAWER 7, Y5N ONE (09:19)
[2018-05-27] MEDS: LACTOBACILLUS ACIDOPHILUS 1 TABLET PO SCH (09:24)
[2018-05-27] MEDS: ENOXAPARIN NA (PORCINE) 40 MG/0.4 ML DISP.SYRIN SQ SCH (09:24)
[2018-05-27] MEDS: predniSONE 20 MG TABLET (UD) PO SCH (09:24)
[2018-05-27] MEDS: PANTOPRAZOLE 40 MG TABLET (FP) PO SCH (09:24)
[2018-05-27] MEDS: ALPRAZolam 0.25 MG TABLET PO PRN (09:24)
--- NOTE | 2018-05-27 10:08 | PATH ---
Surgical Pathology Report Patient Name: [facility]. Rec. #: [id number] /Age/Gender: 1965 (Age: 52) / F Account: [id number] Location: 4 PEDS/ADOL Taken: 05/18/2018 Received: 05/19/2018 Reported: 05/27/2018 Physicians: Dudley Vázquez M.D. Robert DeMatteo, M.D. Joseph Brill, M.D. Franklin Block M.D. Specimen(s) Received A: RIGHT LOWER LOBE WEDGE RESECTION B: RIGHT UPPER LOBE WEDGE RESECTION Clinical History Interstitial lung disease Final Diagnosis A. LUNG, RIGHT, LOWER LOBE, WEDGE RESECTION: EXTENSIVE ORGANIZING PNEUMONIA. SEE COMMENT. B. LUNG, RIGHT, UPPER LOBE WEDGE RESECTION: EXTENSIVE ORGANIZING PNEUMONIA. SEE COMMENT. Comment: Both biopsies show extensive organizing pneumonia. Minimal spared parenchyma is present which shows intra-alveolar foamy macrophage accumulation suggesting a component of airway obstruction. Chronic interstitial inflammation is present and there is a suggestion of mild interstitial fibrosis in some areas. There is insufficient lung uninvolved by organizing pneumonia to accurately evaluate for an underlying NSIP pattern; however, the amount of organizing pneumonia present is more extensive than would be expected for OP/ENVIRONMENTAL COMPLIANCE MANAGER and the radiographic descriptions also raise the possibility of more extensive interstitial disease. The potential underlying etiologies would remain similar and would include collagen vascular diseases including anti-synthetase syndrome and drug reaction, among others. Continued clinical and radiographic correlation recommended. Case sent for consultation to Dr. Chayito Jarvis from [place], [place] (Specimen #: [id number]), the diagnosis above reflects her opinion. See complete report (Specimen #: [id number]) from [place], [place] for additional details. Electronically Signed Maria Teresa Pugh M.D. Gross Description A. Received in formalin labeled "right lower lobe wedge resection," is a 3.0 x 1.5 x 0.2 cm paz nelson portion of lung with a stapled margin of resection. The pleura is paz nelson and intact. Sectioning reveals paz-nelson parenchyma. No discrete lesions are identified. Lay Out Worker sections are submitted in 3 cassettes as follows: 1-shave of staple line; 7-6-[id number] submitted serially sectioned lung wedge. B. Received in formalin labeled "right upper lobe wedge resection," is a 3.0 x 2.1 x 0.5 cm paz-nelson portion of lung with a stapled margin of resection. The pleura is paz-choudhury and intact. Sectioning reveals paz-nelson parenchyma. No discrete lesions are identified. Lay Out Worker sections are submitted in 3 cassettes as follows: 1-shave of staple line; 4-1-saendlqt submitted serially sectioned lung wedge. 05/19/2018 [facility]05/19/2018
--- NOTE | 2018-05-27 11:03 | DS ---
Physical Examination Vital Signs: Vital Signs Temperature 97.6 F 05/27/18 05:38 Pulse Rate 95 H 05/27/18 05:38 Respiratory Rate 20 05/27/18 09:00 Blood Pressure 134/71 05/27/18 05:38 O2 Sat by Pulse Oximetry (%) 98 05/27/18 09:00 Cardiovascular: Yes: Regular Rate and Rhythm Respiratory: Yes: Regular, CTA Bilaterally, On Nasal O2 Gastrointestinal: Yes: Normal Bowel Sounds, Soft Labs: CBC, BMP 05/24/18 06:00 05/24/18 06:00 Discharge Summary Reason For Visit: PNEUMONITIS Current Active Problems Acute hypoxemic respiratory failure (Acute) Chest pain (Acute) Chronic lung disease (Acute) Interstitial lung disease (Acute) Pneumonia (Acute) Pneumonitis (Acute) S/P thoracotomy (Acute) Hospital Course: 52 year old female, with a significant past medical history of sleep apnea (c- pap at night), who presents to the emergency department with, shortness of breath and pneumonia. The patient was at her plug assembler today when she was found to be hypoxic. Patient endorses for she was recently admitted to [facility] 05/05 for similar symptoms. As per Dr. 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 The patient notes the only changes in her lifestyle was the implementation of turmeric and she has not been cleaning her c-pap enough thus, an unknown residue. Patient endorses at home when she is off oxygen she is hypoxic to the 70s. Denies any recent travel freight and passenger agent states comfortable unless she exerts herself - Past Medical History Cardiovascular: No: CHF, HTN Pulmonary: Yes: COPD, Pneumonia, Sleep Apnea. No: O2 Dependent ...LMP Comment: 5 years ago ...: No Psych: Yes: Depression. No: Addictions - Problems (1) Pneumonia Assessment/Plan: --Previous w/u noted -ID consult noted -Off Abx per ID -WEDGE RESECTION---ORGANIZING PNEUMONIA Code(s): J18.9 - PNEUMONIA, UNSPECIFIED ORGANISM (2) Chronic lung disease Assessment/Plan: -Of unknown Etiology -Pulm on case -po steroids--40 BID -Nebs Operative Date: 05/18/18 Pre-Operative Diagnosis: PNA (unspecified), Increased SOB, decreased SpO2 on room air Operation: Bronchoscopy with washings, Right VATs, lung biopsy x2 Post-Operative Diagnosis: Same as Pre-op Surgeon: Ra Marshall Automatic Dispenser Mechanic: Cm Vargas Code(s): J98.4 - OTHER DISORDERS OF LUNG (3) Hypoxemia Assessment/Plan: -as above Code(s): R09.02 - HYPOXEMIA (4) Sleep apnea ON BIPAP Code(s): G47.30 - SLEEP APNEA, UNSPECIFIED Condition: Stable - Instructions Referrals: Richard Alonso MD [Primary Care Provider] - 2 Weeks Disposition: VNS/HOME HEALTH CARE - Home Medications Comprehensive Discharge Medication List: Ambulatory Orders Sertraline HCl [Zoloft] 25 mg PO HS 05/05/18 Sertraline HCl [Zoloft] 100 mg PO HS 05/05/18 Albuterol 2.5/Ipratropium 0.5 [Duoneb -] 1 amp NEB RQ4H #120 amp 05/27/18 Docusate Sodium [Colace -] 100 mg PO TID capsule 05/27/18 Lactobacillus Acidophilus [Bacid -] 1 tab PO DAILY tab 05/27/18 Nystatin Oral Suspension - [Nystatin Oral Susp 109840 Units/5 ML -] 500,000 units PO Q6HPO #200 ml 05/27/18 Pantoprazole Sodium [Protonix -] 40 mg PO DAILY #30 tablet.ec 05/27/18 Sodium Chloride Nasal Ama [[place] Ama Nasal Ama -] 2 spray NS Q6H PRN spray 05/27/18 predniSONE [Deltasone -] 40 mg PO BID #120 tablet 05/27/18
[2018-05-27] MEDS: ALBUTEROL SO4 2.5/IPRATROPIUM 0.5 INH SOL 3 ML VIAL.NEB. NEB SCH ×3 (11:14→15:26)
--- NOTE | 2018-05-27 12:39 | PN ---
Progress Note (short form) - Note Progress Note: PULMONARY SUBJECTIVE IMPROVEMENT VSS/AFEBRILE/HR 100 ANICTERIC BIBASILAR CRACKLES S1S2 BS+ SOFT OBESE NO EDEMA PATH/LABS/MEDS/NOTES/IMAGES REVIEWED CRYPTOGENIC ORGANIZING PNEUMONITIS OF UNKNOWN ETIOLOGY OSAS/ON NIPPV S/P HYPOXEMIC RESP FAILURE WILL BE DISCHARGED TODAY ON PREDNISONE 40MG BID NYSTATIN S/W PRN BACTRIM DS TIW O2/NIPPV WILL HAVE F/U IN OFFICE R DION REDDY
[2018-05-27 15:47] VITALS: BP 128/75; PULSE 108; TEMP 98.4
== END 2018-05-27 17:48 | disposition home health service (06) | DRG 193 ==
LOC: JER 11:11 → JERBED 13:51 → JICU 17:30 → J4S 05-20 14:46
PROVIDERS: ADMIT Family Medicine; ATTEND Family Medicine
PROC: 0BDK4ZX Extraction of Right Lung, Percutaneous Endoscopic Approach, Diagnostic (ICD-10-PCS; principal; 2018-05-18 13:30)
PROC: 0BDK8ZX Extraction of Right Lung, Via Natural or Artificial Opening Endoscopic, Diagnostic (ICD-10-PCS; 2018-05-18 13:30)
DX: J18.9 Pneumonia, unspecified organism (principal); J96.01 Acute respiratory failure with hypoxia; I10 Essential (primary) hypertension; F41.9 Anxiety disorder, unspecified; G43.909 Migraine, unspecified, not intractable, without status migrainosus; Z99.89 Dependence on other enabling machines and devices; I95.9 Hypotension, unspecified; J44.9 Chronic obstructive pulmonary disease, unspecified; Z88.1 Allergy status to other antibiotic agents; G47.33 Obstructive sleep apnea (adult) (pediatric)
CPT/HCPCS: 36415; 71045-TC-FY; 71250-TC; 80053; 81003; 82550; 82803; 82962; 83516; 83520; 83735; 83880; 84100; 84484; 85025; 85610; 85730; 86038; 86256; 86431; 86850; 86900; 86901; 87040; 87070; 87075; 87086; 87102; 87116; 87205; 87206; 87210; 87254; 87389; 87633; 87804; 87899; 88307-TC; 93005; 93010; 94010; 94640; 94660; 97116-GP; 97162-GP; 99285-25; G0480; J0131; J1644; J7030

== ENCOUNTER 2021-10-07 13:22 | Emergency (ER) | payer BC ==
[2021-10-07 13:36] VITALS: BP 118/68; PULSE 132; TEMP 99.6; BMI 36.8
[2021-10-07] MEDS ORDERED: BEBTELOVIMAB (EUA) 175 MG/2 ML VIAL IVPUSH ONE (13:58)
== END 2021-10-07 17:56 | disposition home or self-care (01) ==
LOC: JCOVINFU 13:22
PROC: 3E033GC Introduction of Other Therapeutic Substance into Peripheral Vein, Percutaneous Approach (ICD-10-PCS; principal; 2021-10-07)
DX: U07.1 COVID-19 (principal); R05.9 Cough, unspecified
CPT/HCPCS: 99284-25; M0222; Q0222